=== PATIENT | female | born 1935 | race Caucasian/White ===

== ENCOUNTER 2017-08-20 08:30 | Outpatient (CLI) ==
[2015-12-17 14:39] VITALS: BMI 23.3
== END 2017-08-20 08:31 | disposition short-term general hospital (02) ==
LOC: AMBL 08:30
PROVIDERS: ATTEND Internal Medicine
DX: M25.552 Pain in left hip (principal); I48.91 Unspecified atrial fibrillation; W19.XXXA Unspecified fall, initial encounter

== ENCOUNTER 2017-09-11 14:59 | Inpatient (IN) ==
--- NOTE | 2017-09-11 16:05 | ED.PDOC ---
General ED Provider: Dr. KRISSY WILSON Chief Complaint: Shortness of Air Stated Complaint: Onset of Dyspnea at [place] this afternoon earlier. Recently had Total Lt Hip arthoplasty after fracture. Post op complications of afib -rvr and required vent care. Eventually recovered and now in [place] for rehab with goal of returning home. Receive NEB in ambulance with improved O2 Sat and less dyspnea. Time Seen by Physician: 15:15 Mode of Arrival: Ambulance Information Source: Patient Exam Limitations: No limitations Primary Care Provider: JIGNA CALIX Referred to ED by: PCP Nursing and Triage Documentation Reviewed and Agree: Yes Reviewed sepsis parameters & appropriate labs ordered?: Yes System Inflammatory Response Syndrome: Not Applicable Sepsis Protocol: For patient's 13 years and over: Temp is 96.8 and below OR 101 and greater Pulse >90 BPM Resp >20/minute Acutely Altered Mental Status Are patient's symptoms suggestive of a new infection, such as: -Pneumonia -Skin, Soft Tissue -Endocarditis -UTI -Bone, Joint Infection -Implantable Device -Acute Abdominal Infection -Wound Infection -Meningitis -Blood Stream Catheter Infection -Unknown System Inflammatory Response Syndrome: Not Applicable Respiratory Complaint Exam - Shortness of Air Complaint/Exam Onset/Duration: Today Symptoms Are: Resolved Timing: Intermittent Initial Severity: Moderate Current Severity: None Character: Reports: Dyspnea at rest, Dyspnea on exertion Aggravating: Reports: Movement Alleviating: Reports: Bronchodilators, Oxygen, Upright position Associated Signs and Symptoms: Reports: Cough, Wheezing, Labored breathing History of Healthcare-Acquired Pneumonia: Lives at skilled nursing Pulmonary Embolism Risk Factors: Reports: Recent trauma (Recent Total Hip arthroplasty) Review of Systems - Review Of Systems Constitutional: Denies: Chills Eyes: Reports: No symptoms Ears, Nose, Mouth, Throat: Reports: No symptoms Respiratory: Reports: Short of air, Wheezing Cardiac: Reports: Edema, Irregular heart rate, Palpitations GI: Reports: No symptoms : Reports: No symptoms Musculoskeletal: Reports: No symptoms Skin: Reports: No symptoms Neurological: Reports: No symptoms Endocrine: Reports: No symptoms Hematologic/Lymphatic: Reports: No symptoms All Other Systems: Reviewed and Negative Past Medical History - Past Medical History Endocrine: Reports: DM 2 Cardiovascular: Reports: Hypertension, A-Fib Respiratory: Reports: COPD Hematological: Reports: Anemia Gastrointestinal: Reports: GERD Genitourinary: Reports: None Neuro/Psych: Reports: None, Anxiety Musculoskeletal: Reports: Arthritis, Back Pain Cancer: Reports: None Last Menstrual Period: n/a - Surgical History General Surgical History: Reports: None - Family History Family History: Reports: Heart, Hypertension, Diabetes, Stroke - Social History Smoking Status: Former smoker Hx Substance Use: No Lives: In Group Home Physical Exam - Physical Exam Appearance: Well-appearing Ill-appearing: Mild Pain Distress: None Eyes: NANCY, EOMI, Conjunctiva clear ENT: Ears normal, Nose normal, Oropharynx normal Neck: Supple Respiratory: Airway patent, Breath sounds diminished, Respirations nonlabored, Crackles, Wheezes Cardiovascular: Pulses normal, Irregular rhythm GI/: Soft, Nontender, No masses, Bowel sounds normal Musculoskeletal: Normal strength, ROM intact, No edema Skin: Warm, Dry, Normal color Neurological: Sensation intact, Motor intact, Reflexes intact, Alert, Oriented Critical Care Note - Critical Care Note Total Time (mins): 2 Course - Course Hematology/Chemistry: 09/11/17 16:35 09/11/17 16:35 Orders, Labs, Meds: Lab Review 09/11/17 09/11/17 09/11/17 16:22 16:35 16:35 WBC 11.36 H RBC 2.84 L Hgb 8.8 L Hct 27.3 L MCV 96.1 MCH 31.0 MCHC 32.2 RDW Coeff of James 15.4 H Plt Count 292 Immature Gran % (Auto) 0.4 Neut % (Auto) 82.6 Lymph % (Auto) 7.5 L [place] % (Auto) 9.1 Eos % (Auto) 0.1 Baso % (Auto) 0.3 Immature Gran # (Auto) 0.1 Neut # 9.4 H Lymph # 0.9 [place] # 1.0 Eos # 0.0 Baso # 0.0 Puncture Site Rr O2 Saturation 89.0 L ABG pH 7.498 H ABG pCO2 41.7 ABG pO2 52.0 L* ABG HCO3 32.3 H ABG Total CO2 34 H ABG Base Excess 9 H Matt Test + O2 Delivery Device Oxygen Liter Flow FiO2 % 21.0 Sodium 138 Potassium 3.6 Chloride 97 L Carbon Dioxide 32 H Anion Gap 12.6 BUN 10 Creatinine 0.73 Estimated GFR (MDRD) 77.00 BUN/Creatinine Ratio 13.69 Glucose 132 H Calcium 8.2 Total Bilirubin 0.9 AST 30 ALT 19 Alkaline Phosphatase 88 Total Creatine Kinase 133 CK-MB (CK-2) 5.1 H* CK-MB (CK-2) % 3.60315 Troponin I B-Natriuretic Peptide Total Protein 6.4 Albumin 2.7 L Globulin 3.7 Albumin/Globulin Ratio 0.73 09/11/17 09/11/17 09/11/17 16:35 17:00 17:40 WBC RBC Hgb Hct MCV MCH MCHC RDW Coeff of James Plt Count Immature Gran % (Auto) Neut % (Auto) Lymph % (Auto) [place] % (Auto) Eos % (Auto) Baso % (Auto) Immature Gran # (Auto) Neut # Lymph # [place] # Eos # Baso # Puncture Site Rr O2 Saturation 94.0 L ABG pH 7.487 H ABG pCO2 43.3 ABG pO2 67.0 L ABG HCO3 32.8 H ABG Total CO2 34 H ABG Base Excess 9 H Matt Test + O2 Delivery Device Nc Oxygen Liter Flow 2.00 FiO2 % 28.0 Sodium Potassium Chloride Carbon Dioxide Anion Gap BUN Creatinine Estimated GFR (MDRD) BUN/Creatinine Ratio Glucose Calcium Total Bilirubin AST ALT Alkaline Phosphatase Total Creatine Kinase CK-MB (CK-2) CK-MB (CK-2) % Troponin I 0.0760 B-Natriuretic Peptide 747 H Total Protein Albumin Globulin Albumin/Globulin Ratio Orders Category Date Time Status ADMIT PATIENT INPATIENT .TO SCU (MONITORED BED) ADMISSION 09/11/17 19:42 Ordered ABG DRAW REQUEST Stat CARDIO 09/11/17 16:22 Completed ABG DRAW REQUEST Stat CARDIO 09/11/17 17:40 Completed ECHOCARDIOGRAM 2D-M MODE Routine CARDIO 09/11/17 19:42 Ordered EKG-(ED ONLY) Stat CARDIO 09/11/17 16:19 Completed NEBULIZER TREATMENT Routine CARDIO 09/11/17 19:49 Ordered NEBULIZER TREATMENT Stat CARDIO 09/11/17 16:18 Completed ACTIVITY .BR with BRP CARE 09/11/17 19:47 Ordered INTAKE & OUTPUT Q8HR CARE 09/11/17 19:42 Ordered TELEMETRY MONITORING TELE CARE 09/11/17 19:44 Ordered VITAL SIGNS Q4HR CARE 09/11/17 19:46 Ordered 2 GRAM SODIUM DIET DIETARY 09/11/17 Dinner Ordered Saline Lock [ED IV/MEDIPORT/POWERPORT] .ONCE EMERGENCY 09/11/17 16:18 Active ABG Stat LAB 09/11/17 16:22 Completed ABG Stat LAB 09/11/17 17:40 Completed BNP [B-TYPE NATRIURETIC PEPTIDE] Stat LAB 09/11/17 16:35 Completed CBC W/ AUTO DIFF DAILY@0600 LAB 09/12/17 06:00 Ordered CBC W/ AUTO DIFF DAILY@0600 LAB 09/13/17 06:00 Ordered CBC W/ AUTO DIFF Stat LAB 09/11/17 16:35 Completed CMP [COMPREHENSIVE METABOLIC PANEL] Stat LAB 09/11/17 16:35 Completed COMPREHENSIVE METABOLIC PANEL DAILY@0600 LAB 09/12/17 06:00 Ordered COMPREHENSIVE METABOLIC PANEL DAILY@0600 LAB 09/13/17 06:00 Ordered CREATINE KINASE Stat LAB 09/11/17 16:35 Completed TROPONIN I Q8H LAB 09/12/17 02:00 Ordered TROPONIN I Q8H LAB 09/12/17 10:00 Ordered TROPONIN I Stat LAB 09/11/17 17:00 Completed 0.9 % Sodium Chloride [Saline Flush] MEDS 09/11/17 16:18 Active 1 syr IVF PRN PRN Acetaminophen [Tylenol] MEDS 09/11/17 19:42 Ordered 650 mg PO Q4H PRN Ceftriaxone Sodium [Rocephin] 1 gm MEDS 09/11/17 20:00 Ordered 0.9 % Sodium Chloride [Sodium Chloride] 50 ml IV DAILY Furosemide [Lasix] MEDS 09/12/17 06:30 Ordered 20 mg IVP QDAC Furosemide [Lasix] MEDS 09/11/17 19:29 Discontinued 40 mg IVP ONCE STA Levalbuterol HCl [Xopenex 0.63 mg] MEDS 09/11/17 16:15 Discontinued 1 vial NEB ONCE STA Levalbuterol HCl [Xopenex 0.63 mg] MEDS 09/11/17 19:42 Ordered 1 vial NEB RTQ8H PRN Ondansetron HCl/Pf [Zofran 4 mg/2 ml] MEDS 09/11/17 19:42 Ordered 4 mg IVP Q6H PRN RESUSCITATION STATUS Routine OTHERS 09/11/17 19:42 Ordered CHEST, 1V AP ONLY Stat RADS 09/11/17 16:15 Taken PT CONSULT Routine THERAPIES 09/11/17 Ordered Medications Generic Name Dose Route Start Last Admin Trade Name Freq PRN Reason Stop Dose Admin Sodium Chloride 1 syr 09/11/17 16:18 09/11/17 19:42 Saline Flush IVF 1 syr PRN PRN Administration To flush IV Discontinued Medications Generic Name Dose Route Start Last Admin Trade Name Aneta PRN Reason Stop Dose Admin Furosemide 40 mg 09/11/17 19:29 09/11/17 19:40 Lasix IVP 09/11/17 19:30 40 mg ONCE STA Administration Levalbuterol HCl 1 vial 09/11/17 16:15 09/11/17 16:57 Xopenex 0.63 Mg NEB 09/11/17 16:16 1 vial ONCE STA Administration Vital Signs: Temp Pulse Resp BP Pulse Ox 09/11/17 15:01 97.8 F 70 24 160/75 H 100 Departure - Departure Time of Disposition: 20:00 Disposition: ADMITTED INPATIENT Discharge Problem: CHF (congestive heart failure), Respiratory failure Condition: Fair Pt referred to PMD for follow-up: No Allergies/Adverse Reactions: Allergies atorvastatin [From Lipitor] Adverse Reaction (Unknown, Verified 12/14/15 11:16) ezetimibe [From Zetia] Adverse Reaction (Unknown, Verified 12/14/15 11:16) glimepiride Adverse Reaction (Unknown, Verified 12/14/15 11:16) rosuvastatin [From Crestor] Adverse Reaction (Unknown, Verified 12/14/15 11:16) simvastatin [From Vytorin] Adverse Reaction (Unknown, Verified 12/14/15 11:16) Home Medications: Ambulatory Orders Aspirin [Aspirin EC] 81 mg PO DAILYWM 12/14/15 Diltiazem HCl [Cardizem] 120 mg PO DAILY 12/14/15 Lorazepam [Ativan] 1 mg PO Q6H PRN 12/14/15 Metformin HCl [Glucophage] 500 mg PO BIDWM 12/14/15 Metoprolol Succinate [Toprol Xl] 200 mg PO DAILY 12/14/15 Omeprazole [Prilosec] 20 mg PO QDAC 12/14/15 Furosemide [Lasix] 20 mg PO DAILY #30 tablet 12/27/15 Dabigatran Etexilate Mesylate [Pradaxa] 150 mg PO Q12HR 09/11/17 Digoxin 125 mcg PO DAILY 09/11/17 Docusate Sodium [Colace] 100 mg PO BID 09/11/17 Ferrous Gluconate 324 mg PO DAILY 09/11/17 Gabapentin 100 mg PO TID 09/11/17 Hydrocodone/Acetaminophen [Hydrocodon-Acetaminophen 5-325] 1 each PO Q4H PRN 05/21 Losartan Potassium 100 mg PO DAILY 09/11/17 Multivitamin 1 cap PO DAILY 09/11/17 Olmesartan Medoxomil [Benicar] 40 mg PO DAILY 09/11/17 [place]-3/Dha/Epa/Fish Oil [[place] 3 500 Softgel] 1 each PO BID 09/11/17 Simvastatin [Zocor] 10 mg PO BEDTIME 09/11/17
[2017-09-11] MEDS ORDERED: XOPENEX 0.63 MG NEB STA (16:15)
[2017-09-11] MEDS ORDERED: LASIX IVP STA (19:29)
[2017-09-11] MEDS ORDERED: ZOFRAN 4 MG/2 ML IVP PRN (19:42)
[2017-09-11] MEDS ORDERED: TYLENOL PO PRN (19:42)
[2017-09-11] MEDS ORDERED: XOPENEX 0.63 MG NEB PRN (19:42)
[2017-09-11] MEDS ORDERED: DECADRON 4 MG/ML SDV IM STA (19:55)
[2017-09-11] MEDS ORDERED: ATIVAN PO PRN (19:57)
[2017-09-11] MEDS ORDERED: NORCO 5-325 PO PRN (19:57)
[2017-09-11] MEDS ORDERED: ROCEPHIN 1 GM in SODIUM CHLORIDE 50 ML IV SCH (20:00)
[2017-09-11] MEDS ORDERED: DECADRON 4 MG/ML SDV ONE (20:19)
[2017-09-11] MEDS ORDERED: ROCEPHIN ONE (20:19)
[2017-09-11] MEDS ORDERED: DABIGATRAN ETEXILATE MESYLATE 150 MG PO SCH (21:00)
[2017-09-11 21:41] VITALS: BMI 24.5
[2017-09-11] MEDS ORDERED: PRADAXA ONE (22:36)
[2017-09-11] MEDS: NEURONTIN PO SCH (22:38)
[2017-09-11] MEDS: ATIVAN PO SCH (22:38)
[2017-09-11] MEDS: ZOCOR PO SCH (22:38)
[2017-09-11] MEDS ORDERED: XOPENEX 1.25 MG NEB ONE (23:25)
[2017-09-11] MEDS: XOPENEX 1.25 MG NEB SCH (23:25)
--- NOTE | 2017-09-12 03:25 | DI ---
Exam: Left hip two-view History: Fall with recent hip surgery Findings / impression: The left hip arthroplasty shows no evidence of vishnu-hardware fracture or loos ening. No dislocation of the hardware. Visualized portions of the left dion pelvis appear intact. No acute bony or articular abnormalities are seen.
[2017-09-12] MEDS: XOPENEX 1.25 MG NEB SCH ×4 (04:02→22:15)
[2017-09-12] MEDS: LASIX IVP SCH (05:48)
[2017-09-12] MEDS ORDERED: LASIX TAB PO SCH (06:30)
[2017-09-12] MEDS: PRILOSEC PO SCH (06:30)
--- NOTE | 2017-09-12 07:11 | DI ---
EXAM: CHEST FRONTAL VIEW HISTORY: Shortness of breath. COMPARISON: 12/27/2015 FINDINGS: Heart size upper limit normal, stable. Mild atherosclerotic disease. There are nodular d ensities over the left lung, some probably new or increased in size since previous exam. These could represent pulmonary nodules or foci of fibrosis or pneumonia. Lungs are hyperinflated. No vascular congestion or pleural fluid. No pneumothorax. IMPRESSION: 1. Indeterminate nodular opacities over the left lung could represent foci of infection/pneumonia or pulmonary nodules. Consider follow-up chest radiography to assure clearance. CT may be indicated i f this does not occur. 2. Cannot exclude a background of chronic obstructive pulmonary disease. Correlate clinically.
[2017-09-12] MEDS ORDERED: CARDIZEM PO SCH (09:00)
[2017-09-12] MEDS ORDERED: METOPROLOL SUCCINATE 200 MG PO SCH (09:00)
[2017-09-12] MEDS ORDERED: NON-FORMULARY MEDICATION (Olmesartan Medoxomil [Benicar] 40 MG) PO SCH (09:00)
[2017-09-12] MEDS ORDERED: NON-FORMULARY MEDICATION (Ferrous Gluconate [Ferrous Gluconate] 324 MG) PO SCH (09:00)
[2017-09-12] MEDS ORDERED: NON-FORMULARY MEDICATION (Multivitamin 1 CAP) PO SCH (09:00)
[2017-09-12] MEDS: TOPROL XL PO SCH (09:13)
[2017-09-12] MEDS: PRADAXA PO SCH ×2 (09:13→21:03)
[2017-09-12] MEDS: BENICAR PO SCH (09:14)
[2017-09-12] MEDS: COZAAR PO SCH (09:15)
[2017-09-12] MEDS: MULTIVITAMIN TABLET PO SCH (09:15)
[2017-09-12] MEDS: FERROUS SULFATE PO SCH (09:15)
[2017-09-12] MEDS: ASPIRIN EC PO SCH (09:15)
[2017-09-12] MEDS: LANOXIN PO SCH (09:16)
[2017-09-12] MEDS: NEURONTIN PO SCH ×3 (09:16→21:03)
[2017-09-12] MEDS: GLUCOPHAGE PO SCH ×2 (09:16→16:33)
--- NOTE | 2017-09-12 10:07 | PCM.PROG ---
Attending Provider: ATTENDING PROVIDER: Dr. JIGNA CALIX DATE OF SERVICE: 09/12/17 SUBJECTIVE: This 82 year old WHITE/ F was hospitalized 09/11/17. The patient is hospitalized with acute respiratory failure, etiology likely combination of asthmatic bronchitis with possibility of CHF. The patient had left hip surgery/ repair, on 20 of August. She was in long term. REVIEW OF SYSTEMS: CONSTITUTIONAL: No night sweats. No fatigue, malaise, lethargy. No fever or chills. HEENT: Eyes: No visual changes. No eye pain. No eye discharge. ENT: No runny nose. No epistaxis. No sinus pain. No odynophagia. No congestion. RESPIRATORY: No cough, no congestion. No hemoptysis. No shortness of breath. CARDIOVASCULAR: No angina symptoms. No CHF symptoms. No atypical chest pain for CAD. No palpitations. No orthopnea.. GASTROINTESTINAL: No abdominal pain. No nausea or vomiting. No diarrhea or constipation. No hematemesis. No hematochezia. GENITOURINARY: No urgency. No frequency. No dysuria. No hematuria. No obstructive symptoms. No discharge. No pain. No significant abnormal bleeding. MUSCULOSKELETAL: No musculoskeletal pain; no joint swelling. NEUROLOGICAL: Awake but confused. No headache. No neck pain. No syncope. No seizures. No dizziness. PSYCHIATRIC: Not anxious. No depression. No suicidal thoughts. No homicidal thoughts. SKIN: No rash. No lesions. No wounds. ENDOCRINE: No unexplained weight loss. No weight gain. HEMATOLOGIC/LYMPHATIC: No anemia. No purpura. No petechiae. No prolonged or excessive bleeding. No palpable lymph nodes. PHYSICAL EXAMINATION: GENERAL: The patient is awake, confused, lying in bed in no distress; looks pale. VITAL SIGNS: Temperature 98.9 F, Pulse 80, Respiratory Rate 20, BP 120/80, Pulse Ox 94% HEENT: Head normocephalic, atraumatic. Eyes: Extraocular muscles are intact. Pupils are equal, round and reactive to light and accommodation. Ears: No lesions. Nose appeared normal. Throat: No exudate or erythema. NECK: Supple. No JVD, no carotid bruit. No lymphadenopathy or thyromegaly. LUNGS: Decreased breath sounds. Clear to auscultation. Percussion note normal. Chest symmetrical. HEART: S1, S2, no S3. No murmurs. No cyanosis or clubbing. No ascites. Pulses: Dorsalis pedis and posterior tibial pulses +1 to +2 both sides. ABDOMEN: Soft. Non-tender. Bowel sounds active. No CVA tenderness. No mass felt. EXTREMITIES: No edema. Full range of motion of all extremities, equal. NEUROLOGIC: No focal deficit. Cranial nerves II through XII are grossly intact. No headache, no double vision or headache. SKIN: Not dry. Intact. Turgor-normal. LYMPHATIC: No palpable lymph nodes/no lymphedema. MUSCULOSKELETAL: Normal joints with no swelling. Muscle tone is normal. LAB REVIEW: 09/12/17 01:55 09/12/17 01:55 09/12/17 01:55: Sodium 140, Potassium 3.5, Chloride 96 L, Carbon Dioxide 33 H, Anion Gap 14.5, BUN 12, Creatinine 0.82, Estimated GFR (MDRD) 67.00, BUN/ Creatinine Ratio 14.63, Glucose 156 H, Calcium 8.0 L, Total Bilirubin 0.8, AST 26, ALT 17, Alkaline Phosphatase 84, Total Protein 6.2, Albumin 2.6 L, Globulin 3.6, Albumin/Globulin Ratio 0.72 09/12/17 01:55: WBC 9.92, RBC 2.84 L, Hgb 8.9 L, Hct 27.6 L, MCV 97.2, MCH 31.3 H, MCHC 32.2, RDW Coeff of James 15.6 H, Plt Count 271, Immature Gran % (Auto) 0.5 , Neut % (Auto) 91.7, Lymph % (Auto) 4.1 L, [place] % (Auto) 3.5, Eos % (Auto) 0.0 , Baso % (Auto) 0.2, Immature Gran # (Auto) 0.1, Neut # 9.1 H, Lymph # 0.4 L, [place] # 0.4, Eos # 0.0, Baso # 0.0 09/12/17 01:55: Troponin I 0.0820 ASSESSMENT: 1. Acute respiratory failure seems to have resolved with pulse ox 94% on room air. 2. Anemia. 3. Left hip repair recently. 4. Left ventricular failure. 5. Bronchitis. PLAN: 1. BNP in the morning 2. Venous scan 3. Lanoxin level 4. Daily CBC and CMP 5. ABG on room air Plan and coordination of the patient's care discussed in the presence of Ornamental Painter and nurse. CONDITION: Stable SCRIBED BY: EDWIN EMERSON Knitting Tester scribed while in presence of service performed by Dr. JIGNA CALIX on 09/12/17 ([id number])
[2017-09-12] MEDS: CARDIZEM CD PO SCH (11:00)
[2017-09-12] MEDS: DECADRON 4 MG/ML SDV IVP SCH (11:06)
--- NOTE | 2017-09-12 11:44 | US ---
EXAM: ULTRASOUND LOWER EXTREMITY VENOUS DOPPLER EXAM HISTORY: Swelling and tenderness. FINDINGS: Bilateral lower extremity venous Doppler exam. Real time shearer-scale, Doppler spectral anal ysis and color-flow Doppler imaging performed. The veins targeted for evaluation include the common femoral, greater saphenous, profundus, femoral, popliteal, peroneal, anterior tibial and posterior ti bial. The evaluated veins demonstrated normal spontaneous flow and compression without evidence of thrombosis. Subcutaneous edema is noted at the level of the legs. IMPRESSION: No venous thrombosis identified within the areas evaluated.
[2017-09-12] MEDS: ATIVAN PO SCH (21:03)
[2017-09-12] MEDS: ZOCOR PO SCH (21:03)
[2017-09-12] MEDS: ROCEPHIN 1 GM in SODIUM CHLORIDE 50 ML IV SCH (21:04)
[2017-09-13] MEDS: XOPENEX 1.25 MG NEB SCH ×4 (04:04→23:23)
[2017-09-13] MEDS: PRILOSEC PO SCH (05:51)
[2017-09-13] MEDS: LASIX IVP SCH (05:52)
[2017-09-13] MEDS: DECADRON 4 MG/ML SDV IVP SCH (08:40)
[2017-09-13] MEDS: ASPIRIN EC PO SCH (08:46)
[2017-09-13] MEDS: PRADAXA PO SCH ×2 (08:46→21:34)
[2017-09-13] MEDS: TOPROL XL PO SCH (08:47)
[2017-09-13] MEDS: FERROUS SULFATE PO SCH (08:47)
[2017-09-13] MEDS: NEURONTIN PO SCH ×3 (08:47→20:09)
[2017-09-13] MEDS: BENICAR PO SCH (08:47)
[2017-09-13] MEDS: MULTIVITAMIN TABLET PO SCH (08:48)
[2017-09-13] MEDS: LANOXIN PO SCH (08:48)
[2017-09-13] MEDS: COZAAR PO SCH (08:48)
[2017-09-13] MEDS: GLUCOPHAGE PO SCH ×2 (08:48→16:58)
[2017-09-13] MEDS: CARDIZEM CD PO SCH (08:48)
--- NOTE | 2017-09-13 10:48 | PCM.PROG ---
Attending Provider: ATTENDING PROVIDER: Dr. JIGNA CALIX This patient is seen with Araceli Montgomery, Nurse Practitioner. DATE OF SERVICE: 09/13/17 SUBJECTIVE: This 82 year old WHITE/ F was hospitalized 09/11/17. The patient is lying in bed resting comfortably. She has been doing well. ABGs still poor on room air. REVIEW OF SYSTEMS: CONSTITUTIONAL: Weakness. No night sweats. No fever or chills. HEENT: Eyes: No visual changes. No eye pain. No eye discharge. ENT: No runny nose. No epistaxis. No sinus pain. No odynophagia. No congestion. RESPIRATORY: Cough and congestion. Positive for shortness of breath. No hemoptysis. CARDIOVASCULAR: No angina symptoms. No CHF symptoms. No atypical chest pain for CAD. No palpitations. No orthopnea. Leg edema. GASTROINTESTINAL: No abdominal pain. No nausea or vomiting. No diarrhea or constipation. No hematemesis. No hematochezia. GENITOURINARY: No urgency. No frequency. No dysuria. No hematuria. No obstructive symptoms. No discharge. No pain. No significant abnormal bleeding. MUSCULOSKELETAL: No musculoskeletal pain; no joint swelling. NEUROLOGICAL: Awake, alert, oriented. No headache. No neck pain. No syncope. No seizures. No dizziness. PSYCHIATRIC: Not anxious. No depression. No suicidal thoughts. No homicidal thoughts. SKIN: No rash. No lesions. No wounds. ENDOCRINE: No unexplained weight loss. No weight gain. HEMATOLOGIC/LYMPHATIC: No anemia. No purpura. No petechiae. No prolonged or excessive bleeding. No palpable lymph nodes. PHYSICAL EXAMINATION: GENERAL: The patient is resting comfortably lying in bed in no distress. VITAL SIGNS: Temperature 97.6 F, Pulse 75, Respiratory Rate 18, BP 130/61, Pulse Ox 94% HEENT: Head normocephalic, atraumatic. Eyes: Extraocular muscles are intact. Pupils are equal, round and reactive to light and accommodation. Ears: No lesions. Nose appeared normal. Throat: No exudate or erythema. NECK: Supple. No JVD, no carotid bruit. No lymphadenopathy or thyromegaly. LUNGS: Diminished breath sounds bilaterally. Clear to auscultation. Percussion note normal. Chest symmetrical. HEART: Irregular heart rate consistent with atrial fibrillation. S1, S2, no S3. No murmurs. No cyanosis or clubbing. No ascites. Pulses: Dorsalis pedis and posterior tibial pulses +1 to +2 both sides. ABDOMEN: Soft. Non-tender. Bowel sounds active. No CVA tenderness. No mass felt. EXTREMITIES: Trace to +1 lower extremity edema. Full range of motion of all extremities, equal. NEUROLOGIC: No focal deficit. Cranial nerves II through XII are grossly intact. No headache, no double vision or headache. SKIN: Not dry. Intact. Turgor-normal. LYMPHATIC: No palpable lymph nodes/no lymphedema. MUSCULOSKELETAL: Normal joints with no swelling. Muscle tone is normal. LAB REVIEW: 09/13/17 05:00 09/13/17 05:00 09/13/17 05:00: B-Natriuretic Peptide 421 H 09/13/17 05:00: Sodium 140, Potassium 3.6, Chloride 96 L, Carbon Dioxide 35 H, Anion Gap 12.6, BUN 25 H, Creatinine 1.45 H D, Estimated GFR (MDRD) 35.00, BUN/ Creatinine Ratio 17.24, Glucose 158 H, Calcium 7.7 L, Total Bilirubin 0.5, AST 20, ALT 15, Alkaline Phosphatase 69, Total Protein 5.9, Albumin 2.6 L, Globulin 3.3, Albumin/Globulin Ratio 0.79 09/13/17 05:00: WBC 9.71, RBC 2.60 L, Hgb 8.0 L, Hct 25.3 L, MCV 97.3, MCH 30.8 , MCHC 31.6 L, RDW Coeff of James 15.9 H, Plt Count 274, Immature Gran % (Auto) 0.7, Neut % (Auto) 80.6, Lymph % (Auto) 8.7 L, [place] % (Auto) 9.9, Eos % (Auto) 0.0, Baso % (Auto) 0.1, Immature Gran # (Auto) 0.1, Neut # 7.8 H, Lymph # 0.8, [place] # 1.0, Eos # 0.0, Baso # 0.0 09/12/17 09:40: Digoxin 1.80 09/12/17 09:40: Troponin I 0.0700 09/12/17 08:58: Puncture Site Rr, O2 Saturation 86.0 L, ABG pH 7.474 H, ABG pCO2 44.9, ABG pO2 48.0 L*, ABG HCO3 33 H, ABG Total CO2 34 H, ABG Base Excess 9 H, Matt Test +, FiO2 % 21.0 ASSESSMENT: 1. Acute respiratory failure seems to have resolved with pulse ox 94% on room air. 2. Atrial fibrillation 3. Anemia. 4. Left hip repair recently. 5. Left ventricular failure. 6. Bronchitis. PLAN: 1. Keep legs elevated 2. Echo today Plan and coordination of the patient's care discussed in the presence of Taxicab Driver and nurse. CONDITION: Stable SCRIBED BY: EDWIN EMERSON Parking Meter Collector scribed while in presence of service performed by Dr. Calix/Araceli Montgomery, RONALDO on 09/13/17 ([id number])
--- NOTE | 2017-09-13 11:43 | RS.OTINEVL ---
Subjective - Patient information Date of Evaluation: 09/13/17 Date of Arrival on Unit: 09/10/17 Admitted From:: Emergency Dept Diagnosis: CHF, Afib, Weakness Usual Living Arrangement: Alone Living Arrangement Comments: Pt reports she has an apartment at [facility]. Pt reports she was currently staying at [facility] for therapy for her Left hip. Pt reports she does not drive anymore. She has a lady that comes to her apartment and helps her with cleaning and takes her to the Grocery store before her hip fx. Her daughter Brenda helps take her to the doctor. Medical History: Hypertension, COPD, CHF, Arthritis Medical History Comments:: CHF, COPD, HTN, DAIJA, Cataract surgery, Afib, Gastroesophageal Reflux, hysterectomy, anxiety, arthritis in knees and hands. Surgical History: Hip Replacement Surgical History Comments:: Left DAIJA, Gall Bladder, Subjective Information/ Patient Comments:: "My hip hasn't hurt much." "My hip feels like it is going to give way." - Level of function Prior to this admission, the patient could do the following:: Independent Selfcare, Independent ADL's, Independent Ambulation Abilities prior to this admission: Pt was independent with dressing, bathing, and ambulated with no assistive device. Pt had a house keeper that takes her shopping at [employer] store. Current Equipment Used at Home: O2 at home at night, glucometer Pain Assessment - Pain Pain Score: 0 Side: left Pain Location Body Site: Wrist Pain Aggravating Factors: Changing Position Interventions - Objective Patient Orientation: Person, Place, Situation Current Interventions: IV's, Oxygen, Telemetry Observation: Pt is weak and has difficulty with functional mobility. Pt uses a RW minimal assistance and oxygen. Pt reports her memory has not been good since her surgery. Interventions - ROM Right Upper Extremity AROM: Slight limitation Left Upper Extremity AROM: Slight limitation - Strength Right Upper Extremity Strength: Mild Weakness Left Upper Extremity Strength: Mild Weakness - Sensation Right Upper Extremity Sensation: Intact/Normal Left Upper Extremity Sensation: Intact/Normal Balance - Sitting Balance Static Sitting Balance: Good Dynamic Sitting Balance: Fair - Standing Balance Static Standing Balance: Fair Dynamic Standing Balance: Poor - Comments Balance Assessment Comments: Pt having difficulty with balance during transfer due to the LLE. ADL Skills - Self Feeding Self Feeding: Independent - Grooming Grooming: Independent - Bathing Bathing UE: Min Assist Bathing LE: Mod Assist - Dressing Dressing UE: Min Assist Dressing LE: Max Assist - Toilet Management Toileting Management: Min Assist Functional Mobility - Bed Mobility Rolling R/L: Supervision Scooting: Supervision Supine to Sit: CGA Sit to Supine: CGA - Transfers Sit to Stand: Min Assist Stand to Sit: Min Assist Stand Pivot Transfers: Min Assist, 1 person assist - Ambulation Weight Bearing Status: WBAT Assistive Device Used: Rolling Walker Assistance needed with Ambulation: 2 person assist Comments:: O2 during ambulation - Safety Awareness Safety Awareness: Good Additional Treatment Performed - Additional units charged ADL: 2 - Time with patient Total treatment time: 70 Activities Patient Interests:: Watching Television, Visiting/Socializing Patient Education Patient Education: Education of diagnosis, Home Safety, Education of Plan of Care Teaching Recipient: Patient Teaching Methods: Discussion Assessment Problem List:: Decreased level of function, Requires training/education, Decreased safety/Risk of falls, Weakness Rehab Potential: Good Further Therapy Indicated?: Yes Short Term Goals - Goals GOAL 1: Pt will utilize appropriate AD/AE for increase safety with ADL performance. Goal to be met by: 09/20/17 GOAL 2: Pt to increase BUE strength to 4/5 to improve ambulation with RW/ Goal to be met by: 09/20/17 GOAL 3: Pt to increase dyn. std. bal. to F+/good for sink level ADLS. Goal to be met by: 09/20/17 Professional Fighter Goals GOAL 1: Pt will utilize appropriate AD/AE for increase safety with ADL performance. Goal to be met by: 09/27/17 GOAL 2: Pt to increase BUE strength to 4+/5 to improve ambulation with RW/ Goal to be met by: 09/27/17 GOAL 3: Pt to increase dyn. std. bal. to good+ for sink level ADLS. Goal to be met by: 09/27/17 Plan Plan of Care: Therapeutic EX, Neuromuscular Re-Educ, Therapeutic Activity, Self- Care/Home Management Frequency of Treatment: 1-2 X day, as tolerated Duration of Treatment: 2 Weeks Anticipated Discharge Destination: Home Has the Physician been added for Co-signature?: Yes
--- NOTE | 2017-09-13 15:17 | RS.PTINEVL ---
Subjective - Patient information Date of Evaluation: 09/13/17 Date of Arrival on Unit: 09/10/17 [facility] From[facility] Diagnosis: CHF, respiratory failure, recent THR approx 3 weeks ago Usual Living Arrangement: [facility] Living Arrangement Comments: pt transferred from [facility]. pt had lived alone prior to hip fx. Home Environment: Level/No stairs Medical History: Hypertension, COPD, CHF, Arthritis Medical History Comments:: Afib, Gastroesophageal Reflux, anxiety, back pain, anemia LATEX ALLERGY?: No Surgical History: Hip Replacement, Hysterectomy Surgical History Comments:: Left DAIJA, Gall Bladder, Subjective Information/ Patient Comments:: pt states she has been gettting PT at [facility] s/p LTHR approx 3 weeks ago.pt states she needs to do something so she doesn't lose what she has gained. - Level of function Prior to this admission, the patient could do the following:: Independent Selfcare, Independent ADL's, Independent Ambulation Current Level of Function: Partially Dependent Current Equipment Used at Home: O2 at home at night Pain Assessement - Location L hip Description: Aching Intensity: 4 Pain Behavior: Grasping Site, Facial Grimacing Interventions - Objective Patient Orientation: Person, Place, Time, Situation Current Interventions: IV's, Oxygen, Telemetry Range of Motion - ROM Right Upper Extremity AROM: WFL's Left Upper Extremity AROM: WFL's Right Lower Extremity AROM: WFL's Left Lower Extremity AROM: Slight limitation (L hip limited due to pain) Muscle Strength - Muscle Strength Right Upper Extremity Strength: Mild Weakness (shld flex 4-/5, elbow flex/ext 4- /5) Left Upper Extremity Strength: Mild Weakness (shld flex 4-/5, elbow flex/ext 4-/ 5) Right Lower Extremity Strength: Mild Weakness (hip flex 4-/5, knee flex/ext 4/5 , ankle DF/PF 4/5) Left Lower Extremity Strength: Mild Weakness (hip flex 3+/5, knee flex/ext 4-/5 , ankle DF/PF 4/5) Sensation - Sensation Right Upper Extremity Sensation: Intact/Normal Left Upper Extremity Sensation: Intact/Normal Right Lower Extremity Sensation: Impaired Left Lower Extremity Sensation: Impaired Balance - Sitting Balance and Reactions Static Sitting Balance: Good Dynamic Sitting Balance: Fair Sitting Equilibrium Reactions: Delayed Left, Delayed Right Sitting Protective Reactions: Delayed Left, Delayed Right - Standing Balance and Reactions Static Standing Balance: Fair Dynamic Standing Balance: Poor Standing Equilibrium Reactions: Delayed Left, Delayed Right Standing Protective Reactions: Delayed Left, Delayed Right Functional Mobility - Transfers Sit to Stand: Min Assist Stand to Sit: Min Assist - Safety Awareness Safety Awareness: Fair Ambulation - Ambulation Assistive Device Used: Rolling Walker Orthotic/Prosthetic Device: No Distance: 80ft Assistance needed with Ambulation: Min Assist Gait Deviations: Narrow Based gait, Shuffling gait, Short stride, Deviates from path Ambulation Comments: pt amb with antalgic gait with occasional scissoring and with narrow FREDA Factors Affecting Ambulation: Decreased Balance, Pain, Weakness, Limited Endurance Treatment time - Time with patient Total treatment time: 32 Patient Education - Education Patient Education: Home Exercise Program, Education of Plan of Care Teaching Recipient: Patient Teaching Methods: Discussion Comments: Discussed with patient POC as well as safety with gait and transfers. Assessment - Assessment Problem List:: Decreased level of function, Requires training/education, Decreased safety/Risk of falls, Weakness, Pain limits previous level of function Rehab Potential: Good Further Therapy Indicated?: Yes Short Term Goals GOAL #1: pt demonstrate indepedence with rolling and scooting up in bed Goal to be met by: 09/16/17 GOAL #2: pt transfer sup to/from sit to/from stand CGA Goal to be met by: 09/16/17 GOAL #3: pt amb with rwx CGA 100ft with no LOB and improved gait sequencing Goal to be met by: 09/16/17 Fpc Goals GOAL #1: pt transfer sup to/from sit to/from stand SBA Goal to be met by: 09/19/17 GOAL #2: pt amb with rwx 150ft with no LOB with SBA to CGA Goal to be met by: 09/19/17 GOAL #3: pt with improved strength BLE 4 to 4+/5 independent with HEP Goal to be met by: 09/19/17 Plan Plan of Care: Therapeutic EX, Therapeutic Activity, Self-Care/Home Management Modalities: Hot Pack, Cold Pack/Cryotherapy Frequency of Treatment: 1-2 X day, as tolerated Duration of Treatment: 6 days Anticipated Discharge Destination: [facility] Has the Physician been added for Co-signature?: Yes
[2017-09-13] MEDS: ATIVAN PO SCH (20:09)
[2017-09-13] MEDS: ZOCOR PO SCH (20:09)
[2017-09-13] MEDS: ROCEPHIN 1 GM in SODIUM CHLORIDE 50 ML IV SCH (21:29)
[2017-09-14] MEDS: XOPENEX 1.25 MG NEB SCH ×4 (05:08→22:27)
[2017-09-14] MEDS: LASIX IVP SCH (05:37)
[2017-09-14] MEDS: PRILOSEC PO SCH (05:37)
[2017-09-14] MEDS: CARDIZEM CD PO SCH (09:33)
[2017-09-14] MEDS: COZAAR PO SCH (09:33)
[2017-09-14] MEDS: BENICAR PO SCH (09:33)
[2017-09-14] MEDS: MULTIVITAMIN TABLET PO SCH (09:33)
[2017-09-14] MEDS: LANOXIN PO SCH (09:33)
[2017-09-14] MEDS: GLUCOPHAGE PO SCH ×2 (09:33→17:05)
[2017-09-14] MEDS: NEURONTIN PO SCH ×3 (09:34→20:54)
[2017-09-14] MEDS: PRADAXA PO SCH ×2 (09:34→20:53)
[2017-09-14] MEDS: FERROUS SULFATE PO SCH (09:34)
[2017-09-14] MEDS: TOPROL XL PO SCH (09:34)
[2017-09-14] MEDS: DECADRON 4 MG/ML SDV IVP SCH (09:35)
[2017-09-14] MEDS: ASPIRIN EC PO SCH (09:36)
[2017-09-14] MEDS: HUMULIN R SUBCUT PRN ×3 (12:12→20:55)
--- NOTE | 2017-09-14 12:34 | DI ---
EXAM: Left wrist three views HISTORY: Pain after fall. FINDINGS: Bones appear demineralized. Joints are intact. No fracture is identified. No significant arthropathy. IMPRESSION: Demineralization. No fracture or dislocation.
--- NOTE | 2017-09-14 12:53 | DI ---
EXAM: LEFT FOREARM, 2 VIEWS HISTORY: Fall FINDINGS / IMPRESSION: Bones are demineralized. There is no definite or convincing evidence of acut e displaced fracture. Joints are intact. If symptoms are severe or persistent, consider correlation with CT.
--- NOTE | 2017-09-14 15:09 | PN ---
DATE OF SERVICE: 09/11/17 SUBJECTIVE: The patient was hospitalized from the skilled nursing with hypoxemia. The patient was in acute respiratory failure with pO2 52 with normal pH and pCO2 of 35. The patient was given breathing treatment and her blood gasses improved but after a while the blood gasses returned back to normal. The patient's also had a chest x -ray which showed possibility of interstitial edema. PHYSICAL EXAMINATION: HEENT: Head normocephalic, atraumatic. Eyes: Extraocular muscles are intact. Pupils are equal, round and reactive to light and accommodation. Ears: No lesions. Nose appeared normal. Throat: No exudate or erythema. NECK: Supple. JVP 1cm, no carotid bruit. No lymphadenopathy or thyromegaly. LUNGS: Decreased breath sounds with mild wheeze. Percussion note normal. Chest symmetrical. HEART: S1, S2, no S3. No murmurs. No cyanosis or clubbing. No ascites. Pulses: Dorsalis pedis and posterior tibial pulses +1 to +2 both sides. ABDOMEN: Soft. Nontender. Bowel sounds active. No CVA tenderness. No mass felt. EXTREMITIES: No edema. Full range of motion of all extremities, equal. NEUROLOGIC: No focal deficit. Cranial nerves II through XII are grossly intact. No headache, no double vision or headache. SKIN: Not dry. Intact. Turgor - normal. LYMPHATIC: No palpable lymph nodes/no lymphedema. MUSCULOSKELETAL: Normal joints with no swelling. Muscle tone is normal. ASSESSMENT: 1. Respiratory failure likely from chronic lung disease with probably bronchitis other possibility is early left ventricular failure. PLAN: 1. Give IV Lasix 2. NEBS treatment 3. IV steroids and antibiotics 4. Telemetry in special care unit CONDITION: Stable TIME SPENT: More than 30 minutes. Plan and coordination of the patient's care discussed in the presence of nurse. EB
[2017-09-14] MEDS: ROCEPHIN 1 GM in SODIUM CHLORIDE 50 ML IV SCH (20:53)
[2017-09-14] MEDS: ATIVAN PO SCH (20:54)
[2017-09-14] MEDS: ZOCOR PO SCH (21:27)
[2017-09-15] MEDS: XOPENEX 1.25 MG NEB SCH ×4 (05:16→22:43)
[2017-09-15] MEDS: LASIX IVP SCH (06:09)
[2017-09-15] MEDS: PRILOSEC PO SCH (06:09)
[2017-09-15] MEDS: NEURONTIN PO SCH ×3 (09:17→20:57)
[2017-09-15] MEDS: DECADRON 4 MG/ML SDV IVP SCH (09:17)
[2017-09-15] MEDS: FERROUS SULFATE PO SCH (09:17)
[2017-09-15] MEDS: BENICAR PO SCH (09:17)
[2017-09-15] MEDS: LANOXIN PO SCH ×2 (09:18→09:22)
[2017-09-15] MEDS: TOPROL XL PO SCH (09:18)
[2017-09-15] MEDS: MULTIVITAMIN TABLET PO SCH (09:19)
[2017-09-15] MEDS: COZAAR PO SCH (09:19)
[2017-09-15] MEDS: ASPIRIN EC PO SCH (09:19)
[2017-09-15] MEDS: PRADAXA PO SCH ×2 (09:19→20:56)
[2017-09-15] MEDS: CARDIZEM CD PO SCH (09:19)
[2017-09-15] MEDS: GLUCOPHAGE PO SCH ×2 (09:20→17:52)
[2017-09-15] MEDS: ZOCOR PO SCH (20:56)
[2017-09-15] MEDS: ROCEPHIN 1 GM in SODIUM CHLORIDE 50 ML IV SCH (20:56)
[2017-09-15] MEDS: ATIVAN PO SCH (21:03)
[2017-09-16] MEDS: LASIX IVP SCH (06:01)
[2017-09-16] MEDS: PRILOSEC PO SCH (06:01)
[2017-09-16] MEDS: HUMULIN R SUBCUT PRN ×4 (06:02→20:34)
[2017-09-16] MEDS: XOPENEX 1.25 MG NEB SCH ×4 (06:08→23:15)
[2017-09-16] MEDS: DECADRON 4 MG/ML SDV IVP SCH (09:50)
[2017-09-16] MEDS: CARDIZEM CD PO SCH (09:51)
[2017-09-16] MEDS: TOPROL XL PO SCH (09:51)
[2017-09-16] MEDS: COZAAR PO SCH (09:51)
[2017-09-16] MEDS: PRADAXA PO SCH ×2 (09:51→20:34)
[2017-09-16] MEDS: BENICAR PO SCH (09:51)
[2017-09-16] MEDS: FERROUS SULFATE PO SCH (09:52)
[2017-09-16] MEDS: MULTIVITAMIN TABLET PO SCH (09:52)
[2017-09-16] MEDS: GLUCOPHAGE PO SCH ×2 (09:52→18:23)
[2017-09-16] MEDS: NEURONTIN PO SCH ×3 (09:52→20:35)
[2017-09-16] MEDS: ASPIRIN EC PO SCH (09:52)
[2017-09-16] MEDS: LANOXIN PO SCH (09:58)
[2017-09-16] MEDS: ROCEPHIN 1 GM in SODIUM CHLORIDE 50 ML IV SCH (20:34)
[2017-09-16] MEDS: ZOCOR PO SCH (20:35)
[2017-09-16] MEDS: ATIVAN PO SCH (20:35)
[2017-09-17] MEDS: XOPENEX 1.25 MG NEB SCH ×3 (05:03→17:00)
[2017-09-17] MEDS: LASIX IVP SCH (05:45)
[2017-09-17] MEDS: PRILOSEC PO SCH (05:45)
[2017-09-17] MEDS: PRADAXA PO SCH ×2 (08:32→21:03)
[2017-09-17] MEDS: GLUCOPHAGE PO SCH ×2 (08:33→16:36)
[2017-09-17] MEDS: BENICAR PO SCH (08:33)
[2017-09-17] MEDS: COZAAR PO SCH (08:33)
[2017-09-17] MEDS: TOPROL XL PO SCH (08:33)
[2017-09-17] MEDS: CARDIZEM CD PO SCH (08:33)
[2017-09-17] MEDS: NEURONTIN PO SCH ×3 (08:33→21:03)
[2017-09-17] MEDS: FERROUS SULFATE PO SCH (08:34)
[2017-09-17] MEDS: ASPIRIN EC PO SCH (08:34)
[2017-09-17] MEDS: MULTIVITAMIN TABLET PO SCH (08:34)
[2017-09-17] MEDS: LANOXIN PO SCH (08:35)
[2017-09-17] MEDS: DECADRON 4 MG/ML SDV IVP SCH (09:49)
--- NOTE | 2017-09-17 10:09 | DI ---
EXAM: CHEST FRONTAL AND LATERAL VIEWS HISTORY: Cough, shortness of breath. COMPARISON: 09/11/2017 FINDINGS: Upper limit normal heart size is stable. There is moderate atherosclerotic disease sugges asmita. Hyperinflation and chronic appearing interstitial changes. Scattered nodular opacities remain present although less dense. No visible pleural fluid or active congestive heart failure. IMPRESSION: Previously noted nodular densities especially in the left lung have become less dense. This may repr esent resolving pneumonia. Other pathology including pulmonary nodules are not excluded.
--- NOTE | 2017-09-17 10:10 | PN ---
DATE OF SERVICE: 09/13/17 SUBJECTIVE: 82 year old white female hospitalized with acute respiratory failure combination of probably bronchitis and early CHF. The patient's condition has improved remarkably. He oxygen saturation on room air is 94%. PHYSICAL EXAMINATION: VITAL SIGNS: temperature 97, pulse 75, respiratory rate 18, blood pressure 130/ 60. HEENT: Head normocephalic, atraumatic. Eyes: Extraocular muscles are intact. Pupils are equal, round and reactive to light and accommodation. Ears: No lesions. Nose appeared normal. Throat: No exudate or erythema. Looks somewhat pale. NECK: Supple. No JVD, no carotid bruit. No lymphadenopathy or thyromegaly. LUNGS: Clear to auscultation. Percussion note normal. Chest symmetrical. HEART: S1, S2, no S3. No murmurs. No cyanosis or clubbing. No ascites. Pulses: Dorsalis pedis and posterior tibial pulses +1 to +2 both sides. ABDOMEN: Soft. Nontender. Bowel sounds active. No CVA tenderness. No mass felt. EXTREMITIES: No edema. Full range of motion of all extremities, equal. She had recent left hip fracture which was repaired. NEUROLOGIC: No focal deficit. Cranial nerves II through XII are grossly intact. No headache, no double vision or headache. The patient feels weak, dizzy with light headedness. SKIN: Not dry. Intact. Turgor - normal. LYMPHATIC: No palpable lymph nodes/no lymphedema. MUSCULOSKELETAL: Normal joints with no swelling. Muscle tone is normal. ASSESSMENT: 1. Symptomatic anemia 2. Atrial flutter/fib 3. CHF PLAN: 1. Needs to have blood transfusion at least one unit. CONDITION: Stable The patient was seen and examined with Nurse Practitioner. TIME SPENT: More than 30 minutes. Plan and coordination of the patient's care discussed in the presence of nurse. EB
--- NOTE | 2017-09-17 11:21 | PN ---
DATE OF SERVICE: 09/15/17 SUBJECTIVE: 82 year old white female hospitalized with acute respiratory failure which was combination of COPD exacerbation and possibility of CHF. The patient also had atrial fibrillation. The patient feeling a lot better. The patient was confused in the beginning but she is alert and she is feeling a lot better. Appetite has improved. The daughter is in the room and she is very happy with the patient's progress. REVIEW OF SYSTEMS: CONSTITUTIONAL: No night sweats. No fatigue, malaise, lethargy. No fever or chills. HEENT: Eyes: No visual changes. No eye pain. No eye discharge. ENT: No runny nose. No epistaxis. No sinus pain. No sore throat. No odynophagia. No congestion. RESPIRATORY: No cough, no congestion. No hemoptysis. No shortness of breath. CARDIOVASCULAR: No angina symptoms. No CHF symptoms. No atypical chest pain for CAD. No palpitations. No orthopnea. GASTROINTESTINAL: No abdominal pain. No nausea or vomiting. No diarrhea or constipation. No hematemesis. No hematochezia. GENITOURINARY: No urgency. No frequency. No dysuria. No hematuria. No obstructive symptoms. No discharge. No pain. No significant abnormal bleeding. MUSCULOSKELETAL: No musculoskeletal pain; no joint swelling. NEUROLOGICAL: No headache. No neck pain. No syncope. No seizures. No dizziness. PSYCHIATRIC: Not anxious. No depression. No suicidal thoughts. No homicidal thoughts. SKIN: No rash. No lesions. No wounds. ENDOCRINE: No unexplained weight loss. No weight gain. HEMATOLOGIC/LYMPHATIC: No anemia. No purpura. No petechiae. No prolonged or excessive bleeding. No palpable lymph nodes. PHYSICAL EXAMINATION: GENERAL: The patient is oriented to time,place and person. VITAL SIGNS: Temperature 97.9, pulse 55, respiratory rate 14, blood pressure 140/67 and pulse ox 96%. HEENT: Head normocephalic, atraumatic. Eyes: Extraocular muscles are intact. Pupils are equal, round and reactive to light and accommodation. Ears: No lesions. Nose appeared normal. Throat: No exudate or erythema. NECK: Supple. No JVD, no carotid bruit. No lymphadenopathy or thyromegaly. LUNGS: Decreased breath sounds but clear to auscultation. Percussion note normal. Chest symmetrical. HEART: S1, S2, no S3. No murmurs. No cyanosis or clubbing. No ascites. Pulses: Dorsalis pedis and posterior tibial pulses +1 to +2 both sides. ABDOMEN: Soft. Nontender. Bowel sounds active. No CVA tenderness. No mass felt. EXTREMITIES: No edema. Full range of motion of all extremities, equal. NEUROLOGIC: No focal deficit. Cranial nerves II through XII are grossly intact. No headache, no double vision or headache. SKIN: Not dry. Intact. Turgor - normal. LYMPHATIC: No palpable lymph nodes/no lymphedema. MUSCULOSKELETAL: Normal joints with no swelling. Muscle tone is normal. LABS: Hgb 10.3, hct 32, WBC 10,000 normal differential, creatinine 1.6, BUN 41, potassium 4.9, BNP 421 ASSESSMENT: 1. Acute respiratory failure seems to have resolved 2. Severe chronic lung disease with history of smoking for 55 years. 3. CHF seems to have resolved 4. Atrial fibrillation uncontrol 5. Anemia under control PLAN: 1. Monitor CBC and CMP 2. Will do PFT 3. ABG on room air CONDITION: Stable TIME SPENT: More than 30 minutes. Plan and coordination of the patient's care discussed in the presence of nurse. EB
[2017-09-17] MEDS: HUMULIN R SUBCUT PRN ×3 (11:32→21:04)
--- NOTE | 2017-09-17 11:41 | PCM.PROG ---
Attending Provider: ATTENDING PROVIDER: Dr. JIGNA CALIX This patient is seen with Araceli Montgomery, Nurse Practitioner. DATE OF SERVICE: 09/17/17 SUBJECTIVE: This 82 year old WHITE/ F was hospitalized 09/11/17. The patient is alert, lying in bed. She states breathing is better. REVIEW OF SYSTEMS: CONSTITUTIONAL: Weakness. No night sweats. No fever or chills. HEENT: Eyes: No visual changes. No eye pain. No eye discharge. ENT: No runny nose. No epistaxis. No sinus pain. No odynophagia. No congestion. RESPIRATORY: No cough, no congestion. No hemoptysis. No shortness of breath. CARDIOVASCULAR: No angina symptoms. No CHF symptoms. No atypical chest pain for CAD. No palpitations. No orthopnea.. GASTROINTESTINAL: No abdominal pain. No nausea or vomiting. No diarrhea or constipation. No hematemesis. No hematochezia. GENITOURINARY: No urgency. No frequency. No dysuria. No hematuria. No obstructive symptoms. No discharge. No pain. No significant abnormal bleeding. MUSCULOSKELETAL: Left hip pain. NEUROLOGICAL: Awake, alert, oriented to time, place and person. No headache. No neck pain. No syncope. No seizures. No dizziness. PSYCHIATRIC: Not anxious. No depression. No suicidal thoughts. No homicidal thoughts. SKIN: No rash. No lesions. No wounds. ENDOCRINE: No unexplained weight loss. No weight gain. HEMATOLOGIC/LYMPHATIC: No anemia. No purpura. No petechiae. No prolonged or excessive bleeding. No palpable lymph nodes. PHYSICAL EXAMINATION: GENERAL: The patient is awake, alert and oriented, lying in bed in no distress. VITAL SIGNS: Temperature 97.1 F, Pulse 62, Respiratory Rate 20, BP 157/66, Pulse Ox 99% HEENT: Head normocephalic, atraumatic. Eyes: Extraocular muscles are intact. Pupils are equal, round and reactive to light and accommodation. Ears: No lesions. Nose appeared normal. Throat: No exudate or erythema. NECK: Supple. No JVD, no carotid bruit. No lymphadenopathy or thyromegaly. LUNGS: Diminished breath sounds bilaterally. Clear to auscultation. Percussion note normal. Chest symmetrical. HEART: Irregular heart rate. S1, S2, no S3. No murmurs. No cyanosis or clubbing. No ascites. Pulses: Dorsalis pedis and posterior tibial pulses +1 to +2 both sides. ABDOMEN: Soft. Non-tender. Bowel sounds active. No CVA tenderness. No mass felt. EXTREMITIES: No edema. Full range of motion of all extremities, equal. NEUROLOGIC: No focal deficit. Cranial nerves II through XII are grossly intact. No headache, no double vision or headache. SKIN: Not dry. Intact. Turgor-normal. LYMPHATIC: No palpable lymph nodes/no lymphedema. MUSCULOSKELETAL: Normal joints with no swelling. Muscle tone is normal. LAB REVIEW: 09/17/17 04:30 09/17/17 04:30 09/17/17 04:30: Sodium 140, Potassium 4.0, Chloride 97 L, Carbon Dioxide 35 H, Anion Gap 12.0, BUN 34 H, Creatinine 1.25, Estimated GFR (MDRD) 41.00, BUN/ Creatinine Ratio 27.20, Glucose 118 H, Calcium 7.9 L, Total Bilirubin 0.5, AST 18, ALT 19, Alkaline Phosphatase 64, Total Protein 5.7 L, Albumin 2.6 L, Globulin 3.1, Albumin/Globulin Ratio 0.84 09/17/17 04:30: WBC 10.56 H, RBC 3.23 L, Hgb 9.9 L, Hct 30.9 L, MCV 95.7, MCH 30.7, MCHC 32.0, RDW Coeff of James 15.7 H, Plt Count 226, Immature Gran % (Auto) 1.0, Neut % (Auto) 81.2, Lymph % (Auto) 8.0 L, Brooke % (Auto) 9.7, Eos % (Auto) 0.0, Baso % (Auto) 0.1, Immature Gran # (Auto) 0.1, Neut # 8.6 H, Lymph # 0.9, Brooke # 1.0, Eos # 0.0, Baso # 0.0 ASSESSMENT: 1. Acute respiratory failure seems to have resolved with pulse ox 94% on room air. 2. Atrial fibrillation 3. Anemia. 4. Left hip repair recently. 5. Left ventricular failure. 6. Bronchitis. PLAN: 1. Repeat chest x-ray 2. Attempt to wean off 02 3. Possible discharge home Plan and coordination of the patient's care discussed in the presence of Stock Raiser and nurse. CONDITION: Stable SCRIBED BY: EDWIN EMERSON, Business Education Instructor scribed while in presence of service performed by Dr. Calix/Araceli Montgomery APRN on 09/17/17 ([id number])
--- NOTE | 2017-09-17 13:56 | ECHO2D ---
Date of Exam: 09/14/17 Ordering Physician: DR. JIGNA CALIX Room #: 117 Reason for Echo: CHF, RESPIRATORY FAILURE M-Mode Normal Adult Results LV Dimensions Normal Adult Results AoV Opening excursions >1.6 >1.6 LVEDD-base- 3.5-5.8 4.0 Ao root dimensions 2.0-3.7 3.1 LVESD-base- 3.1-4.6 L. Atrium dimensions 1.9-3.8 4.6 Post. Wall thickness 0.8-1.1 1.1 IV septum (thickness) 0.7-1.2 1.1 Post. Wall excursion 0.72-1.3 NORMAL Septal motion NORMAL Systolic motion R. Ventricular cavity 1.5-2.0 3.5 LVEF 60% 67% Paradoxical septal wall motion NORMAL 2-D : NORMAL LEFT VENTRICULAR CONTRACTILITY, NORMAL VALVES, NO EFFUSION, NO THROMBUS, ENLARGED LEFT ATRIAL CAVITY M-MODE: MV: NORMAL AV: NORMAL TV: NORMAL PV: CHAMBER SIZE: ENLARGED LEFT ATRIAL CAVITY WALL MOTION: NORMAL PERICARDIUM: NORMAL INTERPRETATION: 1. NORMAL LEFT VENTRICULAR CONTRACTILITY 2. NORMAL VALVES 3. ENLARGED LEFT ATRIAL CAVITY AND RIGHT VENTRICLE CAVITY MTDD
--- NOTE | 2017-09-17 14:45 | PN ---
DATE OF SERVICE: 09/16/17 SUBJECTIVE: 82 year old white female hospitalized with acute respiratory failure. The patient's condition has improved remarkably. She is not confused for past two days. She is very happy. Up and about. The patient had left hip repair by Dr. Aguilar on 08/23/17. The patient has been given a couple of units of packed red cells. Appetite has improved. CHF has resolved. Asthma and bronchitis has resolved. REVIEW OF SYSTEMS: CONSTITUTIONAL: No night sweats. No fatigue, malaise, lethargy. No fever or chills. HEENT: Eyes: No visual changes. No eye pain. No eye discharge. ENT: No runny nose. No epistaxis. No sinus pain. No sore throat. No odynophagia. No congestion. RESPIRATORY: No cough, no congestion. No hemoptysis. No shortness of breath. CARDIOVASCULAR: No angina symptoms. No CHF symptoms. No atypical chest pain for CAD. No palpitations. No orthopnea. GASTROINTESTINAL: No abdominal pain. No nausea or vomiting. No diarrhea or constipation. No hematemesis. No hematochezia. GENITOURINARY: No urgency. No frequency. No dysuria. No hematuria. No obstructive symptoms. No discharge. No pain. No significant abnormal bleeding. MUSCULOSKELETAL: No musculoskeletal pain; no joint swelling. NEUROLOGICAL: No headache. No neck pain. No syncope. No seizures. No dizziness. PSYCHIATRIC: Not anxious. No depression. No suicidal thoughts. No homicidal thoughts. SKIN: No rash. No lesions. No wounds. ENDOCRINE: No unexplained weight loss. No weight gain. HEMATOLOGIC/LYMPHATIC: No anemia. No purpura. No petechiae. No prolonged or excessive bleeding. No palpable lymph nodes. PHYSICAL EXAMINATION: GENERAL: The patient is oriented to time, place and person. VITAL SIGNS: Temperature 97.4, pulse 60, respiratory rate 20, blood pressure 160/70 and pulse ox 100%. HEENT: Head normocephalic, atraumatic. Eyes: Extraocular muscles are intact. Pupils are equal, round and reactive to light and accommodation. Ears: No lesions. Nose appeared normal. Throat: No exudate or erythema. NECK: Supple. No JVD, no carotid bruit. No lymphadenopathy or thyromegaly. LUNGS:Decreased breath sounds but clear to auscultation. Percussion note normal. Chest symmetrical. HEART: S1, S2, no S3. No murmurs. No cyanosis or clubbing. No ascites. Pulses: Dorsalis pedis and posterior tibial pulses +1 to +2 both sides. ABDOMEN: Soft. Nontender. Bowel sounds active. No CVA tenderness. No mass felt. EXTREMITIES: No edema. Full range of motion of all extremities, equal. NEUROLOGIC: No focal deficit. Cranial nerves II through XII are grossly intact. No headache, no double vision or headache. SKIN: Not dry. Intact. Turgor - somewhat better. Looks like somewhat pale. LYMPHATIC: No palpable lymph nodes/no lymphedema. MUSCULOSKELETAL: Normal joints with no swelling. Muscle tone is normal. LABS: Hgb 9.9, hct 30, WBC 9,200 normal differential, creatinine 1.4, BUN 40, potassium 4. ASSESSMENT: 1. Acute respiratory failure resolved 2. Bronchitis with COPD under control 3. CHF resolved 4. Atrial fibrillation under control 5. Anemia, stable Hgb 9.9 and hct 30. 6. Dementia resolved 7. Left hip repair recently 08/23/17 and progressing very well. PLAN: 1. Continue all the medication for now 2. Will discharge home probably likely tomorrow 3. Steroids and antibiotics 4. The patient had PFT done today 5. The patient had a poor effort but definitely has chronic lung disease CONDITION: Stable. The patient's daughter was in the room yesterday and case was discussed with her in detail. TIME SPENT: More than 30 minutes. Plan and coordination of the patient's care discussed in the presence of nurse. EB
--- NOTE | 2017-09-17 15:42 | CT ---
EXAM: CT chest without contrast HISTORY: Abnormal chest radiograph COMPARISON: Radiograph chest 09/17/[address] chest 01/19/2012 TECHNIQUE: CT chest performed without intravenous contrast. Coronal and sagittal reformatted images obtained. FINDINGS: There is a stable sub centimeter left thyroid nodule, grossly unchanged from 2012. Heart normal in size. Coronary calcifications. No pericardial effusion. Aorta normal in caliber. Mild a therosclerosis. Evaluation for lymphadenopathy limited without contrast. Stable mildly enlarged pre carinal lymph node measuring 1.2 cm, unchanged from 2012, consistent with benign etiology. Visualize d portion upper abdomen demonstrates no acute abnormality. No acute abnormalities of the bones. Deg enerative change in the spine. Central airway patent. Small to moderate right and small left pleura l effusions. Patchy bilateral ground-glass and nodular infiltrates throughout all lobes of the lung. IMPRESSION: 1. Patchy bilateral nodular and ground-glass infiltrates throughout all lobes of the lung, likely re presenting pneumonia or atypical infectious process. CT chest follow-up recommended in 6 - 8 weeks t o ensure resolution. 2. Small to moderate right and small left pleural effusions. 3. Cardiomegaly. Coronary calcifications. Atherosclerosis.
[2017-09-17] MEDS: ROCEPHIN 1 GM in SODIUM CHLORIDE 50 ML IV SCH (21:02)
[2017-09-17] MEDS: ATIVAN PO SCH (21:03)
[2017-09-17] MEDS: ZOCOR PO SCH (21:03)
[2017-09-18] MEDS: XOPENEX 1.25 MG NEB SCH ×3 (00:04→11:17)
[2017-09-18] MEDS: LASIX IVP SCH (05:56)
[2017-09-18] MEDS: PRILOSEC PO SCH (05:56)
--- NOTE | 2017-09-18 10:09 | PCM.PROG ---
Attending Provider: ATTENDING PROVIDER: Dr. JIGNA CALIX This patient is seen with Araceli Montgomery, Nurse Practitioner. DATE OF SERVICE: 09/18/17 SUBJECTIVE: This 82 year old WHITE/ F was hospitalized 09/11/17. Lying in bed, alert. Unable to wean from oxygen yesterday. Breathing slightly more labored today. CT scan worsened. REVIEW OF SYSTEMS: CONSTITUTIONAL: Weakness. No night sweats. No fever or chills. HEENT: Eyes: No visual changes. No eye pain. No eye discharge. ENT: No runny nose. No epistaxis. No sinus pain. No odynophagia. No congestion. RESPIRATORY: Cough and congestion. No hemoptysis. Positive for shortness of breath. CARDIOVASCULAR: No angina symptoms. No CHF symptoms. No atypical chest pain for CAD. No palpitations. No orthopnea.. GASTROINTESTINAL: No abdominal pain. No nausea or vomiting. No diarrhea or constipation. No hematemesis. No hematochezia. GENITOURINARY: No urgency. No frequency. No dysuria. No hematuria. No obstructive symptoms. No discharge. No pain. No significant abnormal bleeding. MUSCULOSKELETAL: No musculoskeletal pain; no joint swelling. NEUROLOGICAL: Awake, alert, oriented to time, place and person. No headache. No neck pain. No syncope. No seizures. No dizziness. PSYCHIATRIC: Not anxious. No depression. No suicidal thoughts. No homicidal thoughts. SKIN: No rash. No lesions. No wounds. ENDOCRINE: No unexplained weight loss. No weight gain. HEMATOLOGIC/LYMPHATIC: No anemia. No purpura. No petechiae. No prolonged or excessive bleeding. No palpable lymph nodes. PHYSICAL EXAMINATION: GENERAL: The patient is awake, alert and oriented, lying in bed in no distress. VITAL SIGNS: Temperature 98.5 F, Pulse 85, Respiratory Rate 20, BP 173/69, Pulse Ox 97% HEENT: Head normocephalic, atraumatic. Eyes: Extraocular muscles are intact. Pupils are equal, round and reactive to light and accommodation. Ears: No lesions. Nose appeared normal. Throat: No exudate or erythema. NECK: Supple. No JVD, no carotid bruit. No lymphadenopathy or thyromegaly. LUNGS: Crepitations bilaterally. Percussion note normal. Chest symmetrical. HEART: S1, S2, no S3. No murmurs. No cyanosis or clubbing. No ascites. Pulses: Dorsalis pedis and posterior tibial pulses +1 to +2 both sides. ABDOMEN: Soft. Non-tender. Bowel sounds active. No CVA tenderness. No mass felt. EXTREMITIES: Trace lower extremity edema. Full range of motion of all extremities, equal. NEUROLOGIC: No focal deficit. Cranial nerves II through XII are grossly intact. No headache, no double vision or headache. SKIN: Not dry. Intact. Turgor-normal. LYMPHATIC: No palpable lymph nodes/no lymphedema. MUSCULOSKELETAL: Normal joints with no swelling. Muscle tone is normal. LAB REVIEW: 09/18/17 03:45 09/18/17 03:45 09/18/17 03:45: Sodium 140, Potassium 4.0, Chloride 97 L, Carbon Dioxide 35 H, Anion Gap 12.0, BUN 34 H, Creatinine 1.20, Estimated GFR (MDRD) 43.00, BUN/ Creatinine Ratio 28.33, Glucose 137 H, Calcium 8.0 L, Total Bilirubin 0.5, AST 20, ALT 17, Alkaline Phosphatase 63, Total Protein 5.7 L, Albumin 2.6 L, Globulin 3.1, Albumin/Globulin Ratio 0.84, Digoxin 1.08 09/18/17 03:45: WBC 10.42 H, RBC 3.26 L, Hgb 10.1 L, Hct 31.3 L, MCV 96.0, MCH 31.0, MCHC 32.3, RDW Coeff of James 15.8 H, Plt Count 234, Immature Gran % (Auto) 1.2, Neut % (Auto) 81.4, Lymph % (Auto) 7.8 L, [place] % (Auto) 9.3, Eos % (Auto) 0.1, Baso % (Auto) 0.2, Immature Gran # (Auto) 0.1, Neut # 8.5 H, Lymph # 0.8, [place] # 1.0, Eos # 0.0, Baso # 0.0 ASSESSMENT: 1. Bilateral pneumonia per CT scan 2. Acute respiratory failure 3. Atrial fibrillation 4. Anemia. 5. Left hip repair recently. 6. Left ventricular failure. 7. Bronchitis. PLAN: 1. D/C Decadron IV 2. Vanco 500 q.12 IV 3. Solu-Medrol 100 IV q.8 Plan and coordination of the patient's care discussed in the presence of Materials Analyst and nurse. CONDITION: STABLE SCRIBED BY: EDWIN EMERSON Ethanol Maintenance Mechanic scribed while in presence of service performed by Dr. Calix/Araceli Montgomery APRN on 09/18/17 ([id number])
[2017-09-18] MEDS: ASPIRIN EC PO SCH (10:33)
[2017-09-18] MEDS: GLUCOPHAGE PO SCH (10:33)
[2017-09-18] MEDS: TOPROL XL PO SCH (10:33)
[2017-09-18] MEDS: MULTIVITAMIN TABLET PO SCH (10:33)
[2017-09-18] MEDS: FERROUS SULFATE PO SCH (10:33)
[2017-09-18] MEDS: BENICAR PO SCH (10:33)
[2017-09-18] MEDS: DECADRON 4 MG/ML SDV IVP SCH (10:34)
[2017-09-18] MEDS: PRADAXA PO SCH (10:34)
[2017-09-18] MEDS: LANOXIN PO SCH (10:34)
[2017-09-18] MEDS: NEURONTIN PO SCH ×2 (10:34→14:39)
[2017-09-18] MEDS: CARDIZEM CD PO SCH (10:34)
[2017-09-18] MEDS: COZAAR PO SCH (10:35)
[2017-09-18 15:05] VITALS: BP 141/61; TEMP 98.2
--- NOTE | 2017-09-20 10:32 | PN ---
DATE OF SERVICE: 09/14/17 SUBJECTIVE: The patient is hospitalized with acute respiratory failure, likely from a combination of chronic lung disease. She was a heavy smoker and smoked for 55 years. She probably has early CHF. The patient had an echocardiogram done today which showed enlarged RV cavity, normal LV function with normal ejection fraction and valves. The patient is in atrial fibrillation with mildly enlarged left atrium. After blood transfusion, she feels 100% better. REVIEW OF SYSTEMS: CONSTITUTIONAL: No night sweats. No fatigue, malaise, lethargy. No fever or chills. HEENT: Eyes: No visual changes. No eye pain. No eye discharge. ENT: No runny nose. No epistaxis. No sinus pain. No sore throat. No odynophagia. No congestion. RESPIRATORY: No cough, no congestion. No hemoptysis. No shortness of breath. CARDIOVASCULAR: No angina symptoms. No CHF symptoms. No atypical chest pain for CAD. No palpitations. No orthopnea. GASTROINTESTINAL: No abdominal pain. No nausea or vomiting. No diarrhea or constipation. No hematemesis. No hematochezia. GENITOURINARY: No urgency. No frequency. No dysuria. No hematuria. No obstructive symptoms. No discharge. No pain. No significant abnormal bleeding. MUSCULOSKELETAL: No musculoskeletal pain; no joint swelling. NEUROLOGICAL: No headache. No neck pain. No syncope. No seizures. No dizziness. PSYCHIATRIC: Not anxious. No depression. No suicidal thoughts. No homicidal thoughts. SKIN: No rash. No lesions. No wounds. ENDOCRINE: No unexplained weight loss. No weight gain. HEMATOLOGIC/LYMPHATIC: No anemia. No purpura. No petechiae. No prolonged or excessive bleeding. No palpable lymph nodes. PHYSICAL EXAMINATION: GENERAL: The patient is oriented to time, place and person. VITAL SIGNS: Temperature 98.5, pulse 64, respiratory rate 16, BP 148/70, pulse ox 96%. She looks somewhat pale. HEENT: Head normocephalic, atraumatic. Eyes: Extraocular muscles are intact. Pupils are equal, round and reactive to light and accommodation. Ears: No lesions. Nose appeared normal. Throat: No exudate or erythema. NECK: Supple. No JVD, no carotid bruit. No lymphadenopathy or thyromegaly. LUNGS: Clear to auscultation. Percussion note normal. Chest symmetrical. HEART: S1, S2, no S3. No murmurs. No cyanosis or clubbing. No ascites. Pulses: Dorsalis pedis and posterior tibial pulses +1 to +2 both sides. ABDOMEN: Soft. Nontender. Bowel sounds active. No CVA tenderness. No mass felt. EXTREMITIES: No edema. Full range of motion of all extremities, equal. NEUROLOGIC: No focal deficit. Cranial nerves II through XII are grossly intact. No headache, no double vision or headache. SKIN: Not dry. Intact. Turgor - normal. LYMPHATIC: No palpable lymph nodes/no lymphedema. MUSCULOSKELETAL: Normal joints with no swelling. Muscle tone is normal. LABS: Hemoglobin 9.8, hematocrit 29, WBC 8,900, normal differential. Creatinine 1.7, BUN 35, potassium 3.7, glucose 168. BNP 421 on admission. ASSESSMENT: 1. ACUTE RESPIRATORY FAILURE LIKELY FROM CHRONIC LUNG DISEASE WITH BRONCHITIS 2. POSSIBILITY OF CHF 3. ANEMIA 4. RECENT FRACTURE OF THE LEFT HIP REPAIR 5. CHRONIC KIDNEY DISEASE 6. HYPERGLYCEMIA PLAN: 1. Continue the same management with [place], steroids, nebs treatment, antibiotics. 2. Continue Cardizem and Lanoxin. The patient is in atrial fib controlled ventricular response. She is on Metoprolol 200 mg every morning along with Losartan. She is hypertensive. BP is under control. She has multiple medical problems and this all seems to be stable. There is no evidence of CHF. No active bleeding. The patient had surgery and I think she is anemic from that. Compromised kidney function and is going to need Lanoxin level. The reason for transfusion was shortness of breath, inability to get up and cooperate with physical therapy, practically no strength. The patient also had CHF; in short, the patient was symptomatic from her anemia with very poor appetite, would have taken her a long time to have built up iron level. TIME SPENT: More than 30 minutes. Plan and coordination of the patient's care discussed in the presence of nurse. EB
--- NOTE | 2017-09-20 10:43 | PN ---
DATE OF SERVICE: 09/17/17 SUBJECTIVE: 82 year old white female hospitalized with CHF and acute respiratory failure. The patient has severe chronic lung disease. The patient's condition has improved. The patient was seen and examined with Nurse Practitioner. Her kidney functions have improved. Creatinine 1.2, BUN 25. PLAN: 1. Will do Lanoxin level in the morning 2. Will CT scan of the chest for the shadow it showed, heavy smoker for 55 years. CONDITION: Stable TIME SPENT: More than 30 minutes. Plan and coordination of the patient's care discussed in the presence of nurse. EB
--- NOTE | 2017-11-15 14:25 | HP ---
DATE OF SERVICE: 09/11/17 HISTORY OF PRESENT ILLNESS: This is an 82-year-old white female who was brought in to the emergency room by ambulance after complaining of worsening shortness of breath. She recently had a left total hip replacement and she has been on oxygen since then. Her 02 sat at the residential was 88%. PAST MEDICAL HISTORY: CHF Atrial fibrillation Hypokalemia Hypertension COPD GERD Dyslipidemia Diabetes mellitus Type 2 Anemia Former smoker Dementia History of falls PAST SURGICAL HISTORY: Recent left partial hip arthroplasty in August 2017 REVIEW OF SYSTEMS: CONSTITUTIONAL: Weakness, fatigue. No night sweats. No malaise, lethargy. No fever or chills. HEENT: Eyes: No visual changes. No eye pain. No eye discharge. ENT: No runny nose. No epistaxis. No sinus pain. No sore throat. No odynophagia. No ear pain. No congestion. RESPIRATORY: No cough, no congestion. No hemoptysis. Shortness of breath. CARDIOVASCULAR: No angina symptoms. No CHF symptoms. No atypical chest pain for CAD. No palpitations. No orthopnea. GASTROINTESTINAL: No abdominal pain. No nausea or vomiting. No diarrhea or constipation. No hematemesis. No hematochezia. GENITOURINARY: No urgency. No frequency. No dysuria. No hematuria. No obstructive symptoms. No discharge. No pain. No significant abnormal bleeding. MUSCULOSKELETAL: No musculoskeletal pain. No joint swelling. No arthritis. NEUROLOGICAL: No headache. No neck pain. No syncope. No seizures. No dizziness. PSYCHIATRIC: Not anxious. No depression. No suicidal thoughts. No homicidal thoughts. SKIN: No rash. No lesions. No wounds. ENDOCRINE: No unexplained weight loss. No weight gain. HEMATOLOGIC/LYMPHATIC: No anemia. No purpura. No petechiae. No prolonged or excessive bleeding. No palpable lymph nodes. PERSONAL/FAMILY/SOCIAL HISTORY: Family history is positive for coronary artery disease, diabetes, hypertension and stroke. Social history: The patient is a former smoker. She has been at [facility] for physical therapy. No alcohol or ilicit drug use. MEDICATIONS: (HOME) Glucophage 500 mg p.o. b.i.d with meal Toprol XL 200 mg p.o. daily Ativan 1 mg p.o. bedtime Prilosec 20 mg p.o. q.d. a.c. Aspirin 81 mg p.o. daily with meal Lasix 20 mg p.o. daily Zocor 10 mg p.o. bedtime ALLERGIES: ATORVASTATIN, EZETIMIBE, GLIMEPIRIDE, ROSUVASTATIN PHYSICAL EXAMINATION: V/S: Temperature 97.8, heart rate 70, respiratiosn 24, BP 160/75, pulse ox 100. HEENT: Head normocephalic, atraumatic. Eyes: Extraocular muscles are intact. Pupils are equal, round and reactive to light and accommodation. Ears: No lesions. Nose appeared normal. Throat: No exudate or erythema. NECK: Supple. No JVD, no carotid bruit. No lymphadenopathy or thyromegaly. LUNGS: Diminished breath sounds bilaterally. Clear to auscultation. Percussion note normal. Chest symmetrical. HEART: Irregular heart rate consistent with atrial fibrillation. S1, S2, no S3. No murmurs. No cyanosis or clubbing. No ascites. Pulses: Dorsalis pedis and posterior tibial pulses +1 to +2 both sides. ABDOMEN: Soft. Nontender. Bowel sounds active. No CVA tenderness. No mass felt. EXTREMITIES: +2 pitting edema bilateral lower extremities. Full range of motion of all extremities, equal. NEUROLOGIC: Alert, oriented to person and place. No focal deficit. Cranial nerves II through XII are grossly intact. No headache, no double vision or headache. SKIN: Not dry. Intact. Turgor - normal. LYMPHATIC: No palpable lymph nodes/no lymphedema. MUSCULOSKELETAL: Normal joints with no swelling. Muscle tone is normal. LABS ON ADMISSION: White count 11.36, hemoglobin 8.8, hematocrit 27.3, platelets 292. Sodium 138, potassium 3.6, BUN, creatinine 0.73, glucose 132. ABGs on room air 02 sat 89, pH 7.498, pc02 41.7, p02 52, bicarb 32.3, total c02 34, base excess of 9. BNP 747. ASSESSMENT: 1. ACUTE RESPIRATORY FAILURE 2. ACUTE ON CHRONIC RENAL FAILURE 3. SHORTNESS OF BREATH 4. ANEMIA 5. STATUS POST LEFT HIP ARTHROPLASTY 6. GENERALIZED WEAKNESS 7. SHORTNESS OF BREATH 8. POSSIBLE PNEUMONIA PLAN: 1. Will admit 2. Venous scan in the morning 3. CBC, CMP daily 4. Routine telemetry orders 5. Rocephin 1 gm IV daily 6. Solu-Medrol 125 mg IV q.8hr 7. Xopenex neb treatments q.6hr scheduled 8. Regular diet 9. Elevate legs 10. 40 mg of IV Lasix now 11. Continue all home medications 12. Chest x-ray 13. Oxygen as needed 14. Repeat ABGs in the morning TIME SPENT: More than 70 minutes. MTDD
== END 2017-09-18 15:10 | disposition swing bed (61) | DRG 202 ==
LOC: ED 14:59 → MEDSURG B 19:51
PROVIDERS: ADMIT Internal Medicine; ATTEND Internal Medicine
PROC: 30233N1 Transfusion of Nonautologous Red Blood Cells into Peripheral Vein, Percutaneous Approach (ICD-10-PCS; principal; 2017-09-13)
DX: J21.9 Acute bronchiolitis, unspecified (principal); J96.90 Respiratory failure, unspecified, unspecified whether with hypoxia or hypercapnia; I50.9 Heart failure, unspecified; R05 Cough; I10 Essential (primary) hypertension; I48.91 Unspecified atrial fibrillation; Z87.891 Personal history of nicotine dependence; Z99.81 Dependence on supplemental oxygen; Z96.642 Presence of left artificial hip joint; R23.8 Other skin changes; E87.6 Hypokalemia; K21.9 Gastro-esophageal reflux disease without esophagitis; E78.5 Hyperlipidemia, unspecified; E11.9 Type 2 diabetes mellitus without complications; D64.9 Anemia, unspecified; I51.7 Cardiomegaly
CPT/HCPCS: 36415; 36430; 80053; 80162; 82550; 82553; 82803; 82962; 83880; 84484; 85014; 85018; 85025; 86850; 86900; 86922; 93005; 93010; 94640; 96365; 96375; 99223; 99232; 99239; 99284

== ENCOUNTER 2017-09-18 15:10 | Inpatient (IN) ==
[2017-09-18] MEDS ORDERED: TYLENOL PO PRN (15:39)
[2017-09-18] MEDS ORDERED: XOPENEX 0.63 MG NEB PRN (15:42)
[2017-09-18] MEDS ORDERED: ZOFRAN 4 MG/2 ML IVP PRN (15:43)
[2017-09-18] MEDS ORDERED: NORCO 5-325 PO PRN (15:46)
--- NOTE | 2017-09-18 16:35 | RS.OTINEVL ---
Subjective - Patient information Date of Evaluation: 09/18/17 Date of Arrival on Unit: 09/18/17 Admitted From:: In-House Transfer Usual Living Arrangement: Long Term Living Arrangement Comments: pt transferred from [facility]. pt had lived alone prior to hip fx. Surgical History Comments:: Left hip surgery 08/2017. Subjective Information/ Patient Comments:: "I'm so glad to get more therapy." - Level of function Prior to this admission, the patient could do the following:: Independent Selfcare, Independent ADL's, Independent Ambulation Abilities prior to this admission: Pt was living at home alone and not using an assistive device. Pain Assessment - Pain Pain Score: 0 Interventions - Objective Patient Orientation: Person, Place, Time, Situation Current Interventions: IV's, Oxygen Observation: Pt is weak but is improving. Pt has impaired balance. Interventions - ROM Right Upper Extremity AROM: WFL's Left Upper Extremity AROM: WFL's - Strength Right Upper Extremity Strength: Mild Weakness Left Upper Extremity Strength: Mild Weakness - Sensation Right Upper Extremity Sensation: Intact/Normal Left Upper Extremity Sensation: Intact/Normal Balance - Sitting Balance Static Sitting Balance: Good Dynamic Sitting Balance: Fair - Standing Balance Static Standing Balance: Fair Dynamic Standing Balance: Fair ADL Skills - Self Feeding Self Feeding: Independent - Grooming Grooming: Min Assist - Bathing Bathing UE: CGA Bathing LE: Mod Assist - Dressing Dressing UE: CGA Dressing LE: Mod Assist - Toilet Management Toileting Management: Min Assist Functional Mobility - Bed Mobility Rolling R/L: CGA Scooting: CGA Supine to Sit: CGA Sit to Supine: Min Assist - Transfers Sit to Stand: Min Assist Stand to Sit: CGA Stand Pivot Transfers: Min Assist - Ambulation Weight Bearing Status: WBAT Assistive Device Used: Rolling Walker Assistance needed with Ambulation: Min Assist - Safety Awareness Safety Awareness: Good Additional Treatment Performed - Time with patient Total treatment time: 18 Activities Patient Interests:: Watching Television, Visiting/Socializing Patient Education Patient Education: Education of diagnosis, Home Exercise Program, Home Safety, Education of Plan of Care Teaching Recipient: Patient, Family Teaching Methods: Teach Back Method Used, Discussion, Demonstration Assessment Problem List:: Decreased level of function, Requires training/education, Decreased safety/Risk of falls, Weakness Rehab Potential: Good Further Therapy Indicated?: Yes Short Term Goals - Goals GOAL 1: Pt will utilize appropriate AD/AE for increase safety with ADL performance. Goal to be met by: 09/25/17 Progress towards goal: Progressing GOAL 2: Pt to increase BUE strength to 4/5 to improve ambulation with RW. Goal to be met by: 09/25/17 Progress towards goal: Progressing GOAL 3: Pt to increase dyn. std. bal. to F+/good for sink level ADLS. Goal to be met by: 09/25/17 Progress towards goal: Progressing Greenhouse Transplanter Goals GOAL 1: Pt will utilize appropriate AD/AE for increase safety with ADL performance. Goal to be met by: 10/02/17 Progress towards goal: Progressing GOAL 2: Pt to increase BUE strength to 4+/5 to improve ambulation with RW/ Goal to be met by: 10/02/17 Progress towards goal: Progressing GOAL 3: Pt to increase dyn. std. bal. to good+ for sink level ADLS. Goal to be met by: 10/02/17 Progress towards goal: Progressing Plan Plan of Care: Therapeutic EX, Neuromuscular Re-Educ, Therapeutic Activity, Self- Care/Home Management Frequency of Treatment: 1-2 X day, as tolerated Duration of Treatment: 2 Weeks Anticipated Discharge Destination: Home Has the Physician been added for Co-signature?: Yes
[2017-09-18] MEDS: GLUCOPHAGE PO SCH (17:17)
[2017-09-18] MEDS: XOPENEX 1.25 MG NEB SCH ×2 (17:25→23:13)
[2017-09-18] MEDS: HUMULIN R SUBCUT PRN (17:32)
[2017-09-18] MEDS: VANCOMYCIN 1 GM in SODIUM CHLORIDE 250 ML IV SCH (17:32)
[2017-09-18] MEDS ORDERED: DABIGATRAN ETEXILATE MESYLATE 150 MG PO SCH (21:00)
[2017-09-18] MEDS ORDERED: VANCOMYCIN 500 MG in SODIUM CHLORIDE 100 ML IV SCH (21:00)
[2017-09-18] MEDS: ROCEPHIN 1 GM in SODIUM CHLORIDE 50 ML IV SCH (21:12)
[2017-09-18] MEDS: ZOCOR PO SCH (21:45)
[2017-09-18] MEDS: ATIVAN PO SCH (21:45)
[2017-09-18] MEDS: NEURONTIN PO SCH (21:45)
[2017-09-18] MEDS: PRADAXA PO SCH (21:46)
[2017-09-18] MEDS: SOLU-MEDROL 125 MG IVP SCH (21:47)
[2017-09-19] MEDS: HUMULIN R SUBCUT PRN ×2 (00:24→18:30)
[2017-09-19] MEDS: XOPENEX 1.25 MG NEB SCH ×4 (04:27→22:46)
[2017-09-19] MEDS: LASIX IVP SCH (05:48)
[2017-09-19] MEDS: PRILOSEC PO SCH (05:48)
[2017-09-19] MEDS: SOLU-MEDROL 125 MG IVP SCH ×3 (05:48→21:37)
[2017-09-19] MEDS ORDERED: METOPROLOL SUCCINATE 200 MG PO SCH (09:00)
[2017-09-19] MEDS ORDERED: NON-FORMULARY MEDICATION (Ferrous Gluconate [Ferrous Gluconate] 324 MG) PO SCH (09:00)
[2017-09-19] MEDS ORDERED: NON-FORMULARY MEDICATION (Olmesartan Medoxomil [Benicar] 40 MG) PO SCH (09:00)
[2017-09-19] MEDS ORDERED: NON-FORMULARY MEDICATION (Multivitamin 1 CAP) PO SCH (09:00)
[2017-09-19] MEDS: GLUCOPHAGE PO SCH ×2 (09:28→17:22)
[2017-09-19] MEDS: LANOXIN PO SCH (09:28)
[2017-09-19] MEDS: CARDIZEM CD PO SCH (09:28)
[2017-09-19] MEDS: FERROUS SULFATE PO SCH (09:28)
[2017-09-19] MEDS: ASPIRIN EC PO SCH (09:28)
[2017-09-19] MEDS: COZAAR PO SCH (09:28)
[2017-09-19] MEDS: MULTIVITAMIN TABLET PO SCH (09:29)
[2017-09-19] MEDS: TOPROL XL PO SCH (09:29)
[2017-09-19] MEDS: NEURONTIN PO SCH ×3 (09:29→21:32)
[2017-09-19] MEDS: VANCOMYCIN 1 GM in SODIUM CHLORIDE 250 ML IV SCH (09:30)
[2017-09-19] MEDS: BENICAR PO SCH (09:30)
[2017-09-19] MEDS: PRADAXA PO SCH ×2 (09:31→21:32)
--- NOTE | 2017-09-19 10:01 | PCM.PROG ---
Attending Provider: ATTENDING PROVIDER: Dr. JIGNA CALIX DATE OF SERVICE: 09/19/17 SUBJECTIVE: This 82 year old WHITE/ F was hospitalized 09/18/17. The patient is hospitalized in swing bed. Respiratory status has improved. She looks better than yesterday and is in no distress. Oxygen saturation 97% on 2L. REVIEW OF SYSTEMS: CONSTITUTIONAL: No night sweats. No fatigue, malaise, lethargy. No fever or chills. HEENT: Eyes: No visual changes. No eye pain. No eye discharge. ENT: No runny nose. No epistaxis. No sinus pain. No odynophagia. No congestion. RESPIRATORY: No cough, no congestion. No hemoptysis. No shortness of breath. CARDIOVASCULAR: No angina symptoms. No CHF symptoms. No atypical chest pain for CAD. No palpitations. No orthopnea.. GASTROINTESTINAL: No abdominal pain. No nausea or vomiting. No diarrhea or constipation. No hematemesis. No hematochezia. GENITOURINARY: No urgency. No frequency. No dysuria. No hematuria. No obstructive symptoms. No discharge. No pain. No significant abnormal bleeding. MUSCULOSKELETAL: No musculoskeletal pain; no joint swelling. NEUROLOGICAL: Awake, alert, oriented to time, place and person. No headache. No neck pain. No syncope. No seizures. No dizziness. PSYCHIATRIC: Not anxious. No depression. No suicidal thoughts. No homicidal thoughts. SKIN: No rash. No lesions. No wounds. ENDOCRINE: No unexplained weight loss. No weight gain. HEMATOLOGIC/LYMPHATIC: No anemia. No purpura. No petechiae. No prolonged or excessive bleeding. No palpable lymph nodes. PHYSICAL EXAMINATION: GENERAL: The patient is awake, alert and oriented, sitting in chair in no distress. VITAL SIGNS: Temperature 97.6 F, Pulse 60, Respiratory Rate 20, BP 163/71, Pulse Ox 97% HEENT: Head normocephalic, atraumatic. Eyes: Extraocular muscles are intact. Pupils are equal, round and reactive to light and accommodation. Ears: No lesions. Nose appeared normal. Throat: No exudate or erythema. Color is better. NECK: Supple. No JVD, no carotid bruit. No lymphadenopathy or thyromegaly. LUNGS: Good air entry. Practically no wheeze. Percussion note normal. Chest symmetrical. HEART: S1, S2, no S3. No murmurs. No cyanosis or clubbing. No ascites. Pulses: Dorsalis pedis and posterior tibial pulses +1 to +2 both sides. ABDOMEN: Soft. Non-tender. Bowel sounds active. No CVA tenderness. No mass felt. EXTREMITIES: No edema. Full range of motion of all extremities, equal. NEUROLOGIC: No focal deficit. Cranial nerves II through XII are grossly intact. No headache, no double vision or headache. SKIN: Not dry. Intact. Turgor-normal. LYMPHATIC: No palpable lymph nodes/no lymphedema. MUSCULOSKELETAL: Normal joints with no swelling. Muscle tone is normal. ASSESSMENT: 1. Bilateral pneumonia per CT scan 2. Acute respiratory failure 3. Atrial fibrillation 4. Anemia. 5. Left hip repair recently. 6. Left ventricular failure. 7. Bronchitis. PLAN: 1. Systolic blood pressure is slightly elevated, will follow. Lanoxin level is normal. 2. Vancomycin added yesterday 3. Will do ABGs in the morning without oxygen 4. Regular diet Plan and coordination of the patient's care discussed in the presence of Integrated Pest Management Technician and nurse. CONDITION: Stable SCRIBED BY: EDWIN EMERSON Operating Room Manager scribed while in presence of service performed by Dr. JIGNA CALIX on 09/19/17 ([id number])
--- NOTE | 2017-09-19 11:17 | RS.PTINEVL ---
Subjective - Patient information Date of Evaluation: 09/19/17 Date of Arrival on Unit: 09/18/17 Admitted From:: In-House Transfer Diagnosis: CHF, pneumonia, respiratory failure Usual Living Arrangement: [facility] Living Arrangement Comments: pt transferred from [facility]. pt had lived alone prior to hip fx. Home Environment: Apartment, Level/No stairs Medical History: Hypertension, COPD, Diabetes, Arthritis Medical History Comments:: GERD, anxiety, afib with RVR, back pain LATEX ALLERGY?: No Surgical History: Hip Replacement Surgical History Comments:: Left hip surgery 08/2017. Medications: see chart Subjective Information/ Patient Comments:: pt states she feels she is getting stronger, has had a set back with pneumonia. Long discussion with patient regarding how she fx hip. pt states she lives alone in apt no steps. pt was independent with ADL's and amb prior to THR. - Level of function Prior to this admission, the patient could do the following:: Independent Selfcare, Independent ADL's, Independent Ambulation Current Level of Function: Partially Dependent Current Equipment Used at Home: did not use AD prior to THR. pt will need BSC, RWX upon dc. Pain Assessement - Location L hip Description: Aching Intensity: 0 Pain Aggravating Factors: Exercise/Activity, Standing, Walking Pain Alleviating Factors: Medication Interventions - Objective Patient Orientation: Person, Place, Time, Situation Current Interventions: IV's, Oxygen, Telemetry Observation: pt with large blister on dorsum of R foot. Ro WADE examined wound. Range of Motion - ROM Right Upper Extremity AROM: WFL's Left Upper Extremity AROM: WFL's Right Lower Extremity AROM: WFL's Left Lower Extremity AROM: Slight limitation (L hip ROM limited due to THR precautions. No flex >90) Muscle Strength - Muscle Strength Right Upper Extremity Strength: Mild Weakness (grossly 4/5,) Left Upper Extremity Strength: Mild Weakness (grossly 4/5) Right Lower Extremity Strength: Mild Weakness (hip flex 4/5, knee flex/ext 4+/ 5. ankle DF/PF 4+/5) Left Lower Extremity Strength: Mild Weakness (L hip not tested due to THR precautions, knee flex/ext 4/5, ankle DF/PF 4/5) Sensation - Sensation Right Upper Extremity Sensation: Intact/Normal Left Upper Extremity Sensation: Intact/Normal Right Lower Extremity Sensation: Impaired Left Lower Extremity Sensation: Impaired Comments: reports n/t occasionally in BLE Palpation Palpation Findings: None/Normal Balance - Sitting Balance and Reactions Static Sitting Balance: Good Dynamic Sitting Balance: Good Sitting Equilibrium Reactions: Delayed Left, Delayed Right Sitting Protective Reactions: Delayed Left, Delayed Right - Standing Balance and Reactions Static Standing Balance: Fair Dynamic Standing Balance: Poor Standing Equilibrium Reactions: Delayed Left, Delayed Right Standing Protective Reactions: Delayed Left, Delayed Right - Comments Balance Assessment Comments: Tinetti score: 15/28 Functional Mobility - Bed Mobility Rolling R/L: Independent Scooting: Independent Supine to Sit: CGA Sit to Supine: CGA - Transfers Sit to Stand: CGA Stand to Sit: CGA - Safety Awareness Safety Awareness: Good Ambulation - Ambulation Assistive Device Used: Rolling Walker Orthotic/Prosthetic Device: No Distance: 120ft Assistance needed with Ambulation: [facility] Gait Deviations: Forward posture, Short stride Ambulation Comments: pt amb with flexed posture, decreased step length, pt does tend to turn L foot inward but pt can correct. pt amb with slow jose g. Factors Affecting Ambulation: Decreased Balance, Breathing/O2 Saturation, Pain, Weakness, Decreased Coordination, Decreased Safety, Limited Endurance Treatment time - Time with patient Total treatment time: 45 Patient Education - Education Patient Education: Education of diagnosis, Home Safety, Education of Plan of Care Teaching Recipient: Patient Teaching Methods: Discussion, Demonstration (Discussion with patient regarding POC as well as THR precautions) Assessment - Assessment Problem List:: Decreased level of function, Requires training/education, Decreased safety/Risk of falls, Weakness, Pain limits previous level of function Rehab Potential: Good Further Therapy Indicated?: Yes Short Term Goals GOAL #1: pt transfer sup to/from sit SBA, sit to/from stand CGA Goal to be met by: 09/24/17 Progress towards Goal:: Met GOAL #2: pt amb with rwx 150ft with CGAx1 with improved posture and step length Goal to be met by: 09/26/17 Progress towards Goal:: Met GOAL #3: pt with improved strength BLE 4 to 4+/5 Goal to be met by: 09/26/17 Lead Business Systems Analyst Goals GOAL #1: pt transfer sup to/from sit to/from stand independently Goal to be met by: 10/03/17 GOAL #2: pt amb functional distances with rwx with no LOB with supervision Goal to be met by: 10/03/17 GOAL #3: pt with improved dyn stand balance as noted by Tinetti score Goal to be met by: 10/03/17 Plan Plan of Care: Therapeutic EX, Therapeutic Activity, Self-Care/Home Management Modalities: Hot Pack, Cold Pack/Cryotherapy Other:: gait training Frequency of Treatment: 1-2 X day, as tolerated Duration of Treatment: 2 Weeks Anticipated Discharge Destination: Home Has the Physician been added for Co-signature?: Yes
[2017-09-19] MEDS ORDERED: ROCEPHIN ONE (21:21)
[2017-09-19] MEDS: ATIVAN PO SCH (21:32)
[2017-09-19] MEDS: ROCEPHIN 1 GM in SODIUM CHLORIDE 50 ML IV SCH (21:36)
[2017-09-19] MEDS ORDERED: SODIUM CHLORIDE 50 ML IV ONE (21:36)
[2017-09-19] MEDS: ZOCOR PO SCH (21:37)
[2017-09-20] MEDS: HUMULIN R SUBCUT PRN ×5 (00:10→20:54)
[2017-09-20] MEDS: XOPENEX 1.25 MG NEB SCH ×4 (05:15→21:45)
[2017-09-20] MEDS: LASIX IVP SCH (06:08)
[2017-09-20] MEDS: PRILOSEC PO SCH (06:08)
[2017-09-20] MEDS: SOLU-MEDROL 125 MG IVP SCH (06:08)
--- NOTE | 2017-09-20 09:05 | PN ---
DATE OF SERVICE: 09/18/17 SUBJECTIVE: 82 year old white female has severe chronic lung disease. The patient had surgery on the left hip after that she ended up on the ventilator. The patient this time was also in acute respiratory failure which practically had resolved but now she seems to have mild wheeze on both lungs on auscultation. The patient is encouraged to be up and about. PLAN: 1. Will be continued on steroids, antibiotics and NEBS treatment 2. There is no evidence of CHF PROGNOSIS: Guarded The patient was seen and examined with Nurse Practitioner. TIME SPENT: More than 30 minutes. Plan and coordination of the patient's care discussed in the presence of nurse. EB
[2017-09-20] MEDS: LANOXIN PO SCH (09:18)
[2017-09-20] MEDS: BENICAR PO SCH (09:18)
[2017-09-20] MEDS: ASPIRIN EC PO SCH (09:18)
[2017-09-20] MEDS: FERROUS SULFATE PO SCH (09:18)
[2017-09-20] MEDS: PRADAXA PO SCH ×2 (09:20→20:54)
[2017-09-20] MEDS: MULTIVITAMIN TABLET PO SCH (09:21)
[2017-09-20] MEDS: CARDIZEM CD PO SCH (09:21)
[2017-09-20] MEDS: GLUCOPHAGE PO SCH ×2 (09:21→16:30)
[2017-09-20] MEDS: BACTROBAN TP SCH ×2 (09:22→20:54)
[2017-09-20] MEDS: TOPROL XL PO SCH (09:23)
[2017-09-20] MEDS: NEURONTIN PO SCH ×3 (09:23→20:54)
[2017-09-20] MEDS: COZAAR PO SCH (09:23)
[2017-09-20] MEDS: VANCOMYCIN 1 GM in SODIUM CHLORIDE 250 ML IV SCH (09:24)
--- NOTE | 2017-09-20 09:29 | PCM.PROG ---
Attending Provider: ATTENDING PROVIDER: Dr. JIGNA CALIX This patient is seen with Araceli Montgomery, Nurse Practitioner. DATE OF SERVICE: 09/20/17 SUBJECTIVE: This 82 year old WHITE/ F was hospitalized 09/18/17. The patient is sitting up in chair. Breathing is much better. REVIEW OF SYSTEMS: CONSTITUTIONAL: Weakness. No night sweats. No fever or chills. HEENT: Eyes: No visual changes. No eye pain. No eye discharge. ENT: No runny nose. No epistaxis. No sinus pain. No odynophagia. No congestion. RESPIRATORY: Cough and congestion. No hemoptysis. No shortness of breath. CARDIOVASCULAR: No angina symptoms. No CHF symptoms. No atypical chest pain for CAD. No palpitations. No orthopnea.. GASTROINTESTINAL: No abdominal pain. No nausea or vomiting. No diarrhea or constipation. No hematemesis. No hematochezia. GENITOURINARY: No urgency. No frequency. No dysuria. No hematuria. No obstructive symptoms. No discharge. No pain. No significant abnormal bleeding. MUSCULOSKELETAL: Left leg pain. NEUROLOGICAL: Awake, alert, oriented to time, place and person. No headache. No neck pain. No syncope. No seizures. No dizziness. PSYCHIATRIC: Not anxious. No depression. No suicidal thoughts. No homicidal thoughts. SKIN: No rash. Blister on right foot. ENDOCRINE: No unexplained weight loss. No weight gain. HEMATOLOGIC/LYMPHATIC: No anemia. No purpura. No petechiae. No prolonged or excessive bleeding. No palpable lymph nodes. PHYSICAL EXAMINATION: GENERAL: The patient is awake, alert and oriented, sitting in chair in no distress. VITAL SIGNS: Temperature 97.0 F, Pulse 58, Respiratory Rate 24, BP 168/62, Pulse Ox 96% HEENT: Head normocephalic, atraumatic. Eyes: Extraocular muscles are intact. Pupils are equal, round and reactive to light and accommodation. Ears: No lesions. Nose appeared normal. Throat: No exudate or erythema. NECK: Supple. No JVD, no carotid bruit. No lymphadenopathy or thyromegaly. LUNGS: Diminished breath sounds bilaterally. Clear to auscultation. Percussion note normal. Chest symmetrical. HEART: Irregular heart rate. S1, S2, no S3. No murmurs. No cyanosis or clubbing. No ascites. Pulses: Dorsalis pedis and posterior tibial pulses +1 to +2 both sides. ABDOMEN: Soft. Non-tender. Bowel sounds active. No CVA tenderness. No mass felt. EXTREMITIES: Trace edema. Full range of motion of all extremities, equal. NEUROLOGIC: No focal deficit. Cranial nerves II through XII are grossly intact. No headache, no double vision or headache. SKIN: Warm and dry. 2" diameter blister with clear drainage dorsal aspect of right foot. Turgor-normal. LYMPHATIC: No palpable lymph nodes/no lymphedema. MUSCULOSKELETAL: Normal joints with no swelling. Muscle tone is normal. ASSESSMENT: 1. Bilateral pneumonia per CT scan 2. Acute respiratory failure 3. Atrial fibrillation 4. Anemia. 5. Left hip repair recently. 6. Left ventricular failure. 7. Bronchitis. 8. Blister right foot due to leg edema PLAN: 1. Keep legs elevated 2. Bactroban to open area on blister 3. Decrease Solu-Medrol 100 mg b.i.d. Plan and coordination of the patient's care discussed in the presence of Strip Tank Tender and nurse. CONDITION: Stable SCRIBED BY: EDWIN EMERSON Flute Grinder scribed while in presence of service performed by Dr. Calix/Araceli Montgomery APRN on 09/20/17 ([id number])
[2017-09-20] MEDS: ROCEPHIN 1 GM in SODIUM CHLORIDE 50 ML IV SCH (20:53)
[2017-09-20] MEDS: ZOCOR PO SCH (20:54)
[2017-09-20] MEDS ORDERED: SOLU-MEDROL 125 MG IVP SCH (21:00)
[2017-09-20] MEDS: ATIVAN PO SCH (21:03)
[2017-09-21] MEDS: XOPENEX 1.25 MG NEB SCH ×4 (05:08→23:33)
[2017-09-21] MEDS: HUMULIN R SUBCUT PRN ×4 (05:39→20:42)
[2017-09-21] MEDS: PRILOSEC PO SCH (05:39)
[2017-09-21] MEDS: LASIX IVP SCH (05:39)
[2017-09-21] MEDS ORDERED: LASIX TAB PO STA (08:04)
[2017-09-21] MEDS: VANCOMYCIN 1 GM in SODIUM CHLORIDE 250 ML IV SCH (08:42)
[2017-09-21] MEDS: BACTROBAN TP SCH ×2 (08:44→20:41)
[2017-09-21] MEDS: TOPROL XL PO SCH (08:44)
[2017-09-21] MEDS: BENICAR PO SCH (08:45)
[2017-09-21] MEDS: CARDIZEM CD PO SCH (08:45)
[2017-09-21] MEDS: LANOXIN PO SCH (08:45)
[2017-09-21] MEDS: MULTIVITAMIN TABLET PO SCH (08:45)
[2017-09-21] MEDS: FERROUS SULFATE PO SCH (08:47)
[2017-09-21] MEDS: GLUCOPHAGE PO SCH ×2 (08:47→18:07)
[2017-09-21] MEDS: COZAAR PO SCH (08:47)
[2017-09-21] MEDS: NEURONTIN PO SCH ×3 (08:47→20:41)
[2017-09-21] MEDS: ASPIRIN EC PO SCH (08:47)
[2017-09-21] MEDS: PRADAXA PO SCH ×2 (08:48→20:41)
[2017-09-21] MEDS: PREDNISONE PO SCH (08:48)
[2017-09-21] MEDS ORDERED: NEOSPORIN OINT 0.9 GM PACKET TP SCH (09:00)
[2017-09-21] MEDS ORDERED: CATAPRES PO SCH (09:00)
--- NOTE | 2017-09-21 10:10 | PCM.PROG ---
Attending Provider: ATTENDING PROVIDER: Dr. JIGNA CALIX This patient is seen with Araceli Montgomery, Nurse Practitioner. DATE OF SERVICE: 09/21/17 SUBJECTIVE: This 82 year old WHITE/ F was hospitalized 09/18/17. The patient is sitting in chair, alert. Breathing has improved, weakness has improved. REVIEW OF SYSTEMS: CONSTITUTIONAL: Weakness and fatigue. No night sweats. No fever or chills. HEENT: Eyes: No visual changes. No eye pain. No eye discharge. ENT: No runny nose. No epistaxis. No sinus pain. No odynophagia. No congestion. RESPIRATORY: No cough, no congestion. No hemoptysis. No shortness of breath. CARDIOVASCULAR: Irregular heart rate. No angina symptoms. No CHF symptoms. No atypical chest pain for CAD. No palpitations. No orthopnea.. GASTROINTESTINAL: No abdominal pain. No nausea or vomiting. No diarrhea or constipation. No hematemesis. No hematochezia. GENITOURINARY: No urgency. No frequency. No dysuria. No hematuria. No obstructive symptoms. No discharge. No pain. No significant abnormal bleeding. MUSCULOSKELETAL: No musculoskeletal pain; no joint swelling. NEUROLOGICAL: Awake, alert, oriented to time, place and person. No headache. No neck pain. No syncope. No seizures. No dizziness. PSYCHIATRIC: Not anxious. No depression. No suicidal thoughts. No homicidal thoughts. SKIN: No rash. No lesions. Blister dorsum of foot. ENDOCRINE: No unexplained weight loss. No weight gain. HEMATOLOGIC/LYMPHATIC: No anemia. No purpura. No petechiae. No prolonged or excessive bleeding. No palpable lymph nodes. PHYSICAL EXAMINATION: GENERAL: The patient is awake, alert and oriented, sitting in chair in no distress. VITAL SIGNS: Temperature 97.8 F, Pulse 64, Respiratory Rate 20, BP 176/60, Pulse Ox 90% HEENT: Head normocephalic, atraumatic. Eyes: Extraocular muscles are intact. Pupils are equal, round and reactive to light and accommodation. Ears: No lesions. Nose appeared normal. Throat: No exudate or erythema. NECK: Supple. No JVD, no carotid bruit. No lymphadenopathy or thyromegaly. LUNGS: Clear to auscultation. Percussion note normal. Chest symmetrical. HEART: S1, S2, no S3. No murmurs. No cyanosis or clubbing. No ascites. Pulses: Dorsalis pedis and posterior tibial pulses +1 to +2 both sides. ABDOMEN: Soft. Non-tender. Bowel sounds active. No CVA tenderness. No mass felt. EXTREMITIES: Trace pitting edema. Full range of motion of all extremities, equal. NEUROLOGIC: No focal deficit. Cranial nerves II through XII are grossly intact. No headache, no double vision or headache. SKIN: Warm and dry. Intact. Turgor-normal. Blister dorsal aspect right foot. No sign of infection 2" diameter. LYMPHATIC: No palpable lymph nodes/no lymphedema. MUSCULOSKELETAL: Normal joints with no swelling. Muscle tone is normal. LAB REVIEW: 09/21/17 04:30 09/21/17 04:30 09/21/17 04:30: Sodium 140, Potassium 4.0, Chloride 97 L, Carbon Dioxide 34 H, Anion Gap 13.0, BUN 44 H, Creatinine 1.35 H, Estimated GFR (MDRD) 38.00, BUN/ Creatinine Ratio 32.59, Glucose 199 H, Calcium 8.2, Total Bilirubin 0.5, AST 18 , ALT 20, Alkaline Phosphatase 64, Total Protein 5.7 L, Albumin 2.8 L, Globulin 2.9, Albumin/Globulin Ratio 0.97 09/21/17 04:30: WBC 10.40 H, RBC 3.42 L, Hgb 10.6 L, Hct 32.9 L, MCV 96.2, MCH 31.0, MCHC 32.2, RDW Coeff of James 15.5 H, Plt Count 230, Immature Gran % (Auto) 1.1, Neut % (Auto) 92.2, Lymph % (Auto) 4.0 L, [place] % (Auto) 2.6, Eos % (Auto) 0.0, Baso % (Auto) 0.1, Immature Gran # (Auto) 0.1, Neut # 9.6 H, Lymph # 0.4 L , [place] # 0.3 L, Eos # 0.0, Baso # 0.0 ASSESSMENT: 1. Bilateral pneumonia per CT scan 2. Acute respiratory failure 3. Atrial fibrillation 4. Anemia 5. Left hip repair recently 6. Left ventricular failure 7. Bronchitis 8. Blister right foot due to leg edema PLAN: 1. Prednisone 20 mg daily 2. D/C Solu-Medrol 3. Lasix 40 mg p.o. 4. D/C IV Lasix 5. Clonidine 0.1 mg b.i.d. 6. Elevate legs Plan and coordination of the patient's care discussed in the presence of Student Records Specialist and nurse. CONDITION: Stable SCRIBED BY: EDWIN EMERSON Ultra Sound Technician scribed while in presence of service performed by Dr. Calix/Araceli Montgomery APRN on 09/21/17 ([id number])
[2017-09-21] MEDS ORDERED: LASIX IVP STA (13:26)
--- NOTE | 2017-09-21 15:26 | PN ---
DATE OF SERVICE: 09/20/17 SUBJECTIVE: The patient was seen with the Nurse Practitioner. The patient's respiratory status seems to have improved with aggressive NEBS treatment, steroids and antibiotics. She has been advised to go through pulmonary rehab. CONDITION: Improving. TIME SPENT: More than 30 minutes. Plan and coordination of the patient's care discussed in the presence of nurse. EB
[2017-09-21] MEDS: ZOCOR PO SCH (20:41)
[2017-09-21] MEDS: ROCEPHIN 1 GM in SODIUM CHLORIDE 50 ML IV SCH (20:41)
[2017-09-21] MEDS: NORVASC PO SCH (20:41)
[2017-09-21] MEDS: ATIVAN PO SCH (20:42)
[2017-09-22] MEDS: XOPENEX 1.25 MG NEB SCH ×3 (05:22→16:54)
[2017-09-22] MEDS: PRILOSEC PO SCH (06:05)
[2017-09-22] MEDS ORDERED: PREDNISONE PO SCH (08:00)
[2017-09-22] MEDS: BACTROBAN TP SCH ×2 (09:52→22:01)
[2017-09-22] MEDS: VANCOMYCIN 1 GM in SODIUM CHLORIDE 250 ML IV SCH (09:52)
[2017-09-22] MEDS: ASPIRIN EC PO SCH (09:53)
[2017-09-22] MEDS: PRADAXA PO SCH ×2 (09:53→22:02)
[2017-09-22] MEDS: BENICAR PO SCH (09:54)
[2017-09-22] MEDS: NEURONTIN PO SCH ×3 (09:55→22:02)
[2017-09-22] MEDS: GLUCOPHAGE PO SCH ×2 (09:55→17:44)
[2017-09-22] MEDS: LOPRESSOR PO SCH ×2 (09:55→22:02)
[2017-09-22] MEDS: MULTIVITAMIN TABLET PO SCH (09:55)
[2017-09-22] MEDS: NORVASC PO SCH ×2 (09:56→22:02)
[2017-09-22] MEDS: PREDNISONE PO SCH (09:56)
[2017-09-22] MEDS: FERROUS SULFATE PO SCH (09:57)
[2017-09-22] MEDS: HUMULIN R SUBCUT PRN ×3 (12:19→22:03)
[2017-09-22] MEDS: ROCEPHIN 1 GM in SODIUM CHLORIDE 50 ML IV SCH (22:01)
[2017-09-22] MEDS: ATIVAN PO SCH (22:02)
[2017-09-22] MEDS: ZOCOR PO SCH (22:03)
[2017-09-23] MEDS: XOPENEX 1.25 MG NEB SCH ×5 (00:06→23:12)
[2017-09-23] MEDS: PRILOSEC PO SCH (05:58)
[2017-09-23] MEDS: LASIX TAB PO SCH (06:04)
[2017-09-23] MEDS: BACTROBAN TP SCH ×2 (09:49→21:00)
[2017-09-23] MEDS: ASPIRIN EC PO SCH (09:49)
[2017-09-23] MEDS: PREDNISONE PO SCH (09:49)
[2017-09-23] MEDS: GLUCOPHAGE PO SCH ×2 (09:49→16:32)
[2017-09-23] MEDS: LOPRESSOR PO SCH ×2 (09:49→20:58)
[2017-09-23] MEDS: MULTIVITAMIN TABLET PO SCH (09:49)
[2017-09-23] MEDS: FERROUS SULFATE PO SCH (09:49)
[2017-09-23] MEDS: BENICAR PO SCH (09:50)
[2017-09-23] MEDS: NEURONTIN PO SCH ×3 (09:50→21:06)
[2017-09-23] MEDS: NORVASC PO SCH ×2 (09:50→21:06)
[2017-09-23] MEDS: PRADAXA PO SCH ×2 (09:50→21:05)
[2017-09-23] MEDS: VANCOMYCIN 1 GM in SODIUM CHLORIDE 250 ML IV SCH (09:53)
[2017-09-23] MEDS: VANCOMYCIN 750 MG in SODIUM CHLORIDE 250 ML IV SCH (11:18)
[2017-09-23] MEDS: HUMULIN R SUBCUT PRN ×3 (13:24→20:58)
[2017-09-23] MEDS: ROCEPHIN 1 GM in SODIUM CHLORIDE 50 ML IV SCH (21:01)
[2017-09-23] MEDS: ZOCOR PO SCH (21:06)
[2017-09-23] MEDS: ATIVAN PO SCH (21:06)
[2017-09-24] MEDS: XOPENEX 1.25 MG NEB SCH ×4 (05:06→22:43)
[2017-09-24] MEDS: LASIX TAB PO SCH (06:04)
[2017-09-24] MEDS: PRILOSEC PO SCH (06:04)
[2017-09-24] MEDS: MULTIVITAMIN TABLET PO SCH (08:07)
[2017-09-24] MEDS: GLUCOPHAGE PO SCH ×2 (08:07→17:36)
[2017-09-24] MEDS: BENICAR PO SCH (08:07)
[2017-09-24] MEDS: NEURONTIN PO SCH ×3 (08:07→20:29)
[2017-09-24] MEDS: FERROUS SULFATE PO SCH (08:07)
[2017-09-24] MEDS: ASPIRIN EC PO SCH (08:07)
[2017-09-24] MEDS: VANCOMYCIN 750 MG in SODIUM CHLORIDE 250 ML IV SCH ×2 (08:08→12:18)
[2017-09-24] MEDS: PRADAXA PO SCH ×2 (08:08→20:29)
[2017-09-24] MEDS: BACTROBAN TP SCH ×2 (08:08→20:30)
[2017-09-24] MEDS: LOPRESSOR PO SCH ×2 (08:08→20:28)
[2017-09-24] MEDS: PREDNISONE PO SCH (08:08)
[2017-09-24] MEDS: NORVASC PO SCH ×2 (08:08→20:29)
--- NOTE | 2017-09-24 09:35 | DI ---
EXAM: PA and lateral views of the chest HISTORY: Cough and shortness of breath COMPARISON: Chest x-ray 09/17/2017 and multiple priors including CT chest 09/17/2017 FINDINGS: The cardiomediastinal silhouette is unchanged with atherosclerotic disease of the aortic a rch. The lungs are hyperinflated with flattening of the diaphragm. There is no pneumothorax or pleu ral effusion. There is no consolidation, nodule or mass. There is persistent patchy ground-glass op acities. The osseous structures demonstrate multilevel degenerative disease. IMPRESSION: 1. Unchanged patchy ground-glass opacities suggestive of pain inflammation/infection. 2. Mild hyperinflation.
--- NOTE | 2017-09-24 11:17 | PCM.PROG ---
Attending Provider: ATTENDING PROVIDER: Dr. JIGNA CALIX This patient is seen with Araceli Montgomery, Nurse Practitioner. DATE OF SERVICE: 09/24/17 SUBJECTIVE: This 82 year old WHITE/ F was hospitalized 09/18/17. The patient is lying in bed, alert. The patient has been up and about with walker. Breathing improved, strength improved. REVIEW OF SYSTEMS: CONSTITUTIONAL: Positive for weakness. No night sweats. No malaise, lethargy. No fever or chills. HEENT: Eyes: No visual changes. No eye pain. No eye discharge. ENT: No runny nose. No epistaxis. No sinus pain. No odynophagia. No congestion. RESPIRATORY: No cough, no congestion. No hemoptysis. No shortness of breath. CARDIOVASCULAR: No angina symptoms. No CHF symptoms. No atypical chest pain for CAD. No palpitations. No orthopnea.. GASTROINTESTINAL: No abdominal pain. No nausea or vomiting. No diarrhea or constipation. No hematemesis. No hematochezia. GENITOURINARY: No urgency. No frequency. No dysuria. No hematuria. No obstructive symptoms. No discharge. No pain. No significant abnormal bleeding. MUSCULOSKELETAL: Left leg pain. NEUROLOGICAL: Awake, alert, oriented to time, place and person. No headache. No neck pain. No syncope. No seizures. No dizziness. PSYCHIATRIC: Not anxious. No depression. No suicidal thoughts. No homicidal thoughts. SKIN: No rash. Blister right foot. ENDOCRINE: No unexplained weight loss. No weight gain. HEMATOLOGIC/LYMPHATIC: No anemia. No purpura. No petechiae. No prolonged or excessive bleeding. No palpable lymph nodes. PHYSICAL EXAMINATION: GENERAL: The patient is awake, alert and oriented, lying in bed in no distress. VITAL SIGNS: Temperature 97.6 F, Pulse 90, Respiratory Rate 20, BP 164/70, Pulse Ox 97% HEENT: Head normocephalic, atraumatic. Eyes: Extraocular muscles are intact. Pupils are equal, round and reactive to light and accommodation. Ears: No lesions. Nose appeared normal. Throat: No exudate or erythema. NECK: Supple. No JVD, no carotid bruit. No lymphadenopathy or thyromegaly. LUNGS: Diminished breath sounds bilaterally. Clear to auscultation. Percussion note normal. Chest symmetrical. HEART: Irregular heart rate. S1, S2, no S3. No murmurs. No cyanosis or clubbing. No ascites. Pulses: Dorsalis pedis and posterior tibial pulses +1 to +2 both sides. ABDOMEN: Soft. Non-tender. Bowel sounds active. No CVA tenderness. No mass felt. EXTREMITIES: No edema. Full range of motion of all extremities, equal. NEUROLOGIC: No focal deficit. Cranial nerves II through XII are grossly intact. No headache, no double vision or headache. SKIN: Warm and dry. Intact. Turgor-normal. Blister right foot, 2" open, no sign of infection. LYMPHATIC: No palpable lymph nodes/no lymphedema. MUSCULOSKELETAL: Normal joints with no swelling. Muscle tone is normal. LAB REVIEW: 09/24/17 04:00 09/24/17 04:00 09/24/17 04:00: Sodium 145, Potassium 3.5, Chloride 101, Carbon Dioxide 35 H, Anion Gap 12.5, BUN 32 H, Creatinine 1.03, Estimated GFR (MDRD) 52.00, BUN/ Creatinine Ratio 31.06, Glucose 107, Calcium 8.3, Total Bilirubin 0.7, AST 27, ALT 19, Alkaline Phosphatase 59, Total Protein 5.6 L, Albumin 2.7 L, Globulin 2.9, Albumin/Globulin Ratio 0.93 09/24/17 04:00: WBC 11.68 H, RBC 3.31 L, Hgb 10.4 L, Hct 32.1 L, MCV 97.0, MCH 31.4 H, MCHC 32.4, RDW Coeff of James 15.6 H, Plt Count 186, Immature Gran % (Auto ) 0.9, Neut % (Auto) 81.1, Lymph % (Auto) 8.7 L, [place] % (Auto) 8.8, Eos % (Auto ) 0.3, Baso % (Auto) 0.2, Immature Gran # (Auto) 0.1, Neut # 9.5 H, Lymph # 1.0 , [place] # 1.0, Eos # 0.0, Baso # 0.0 09/23/17 08:50: Vancomycin Trough 18.82 ASSESSMENT: 1. Bilateral pneumonia per CT scan 2. Acute respiratory failure 3. Atrial fibrillation 4. Anemia 5. Left hip repair recently 6. Left ventricular failure 7. Bronchitis 8. Blister right foot due to leg edema PLAN: 1. Anticipate discharge home 2. Keflex 500 mg t.i.d. times 5 days 3. Prednisone 10 mg daily for 5 days 4. Continue Bactroban b.i.d. to blister 5. The patient has 02 at home. 6. Home Health for nursing assessment, PT/OT. 7. The patient would benefit from a rolling walker at home for ambulation. 7. Repeat chest x-ray before discharge Plan and coordination of the patient's care discussed in the presence of Supervisor Post Wave and nurse. CONDITION: Stable SCRIBED BY: EDWIN EMERSON Health Spa Manager scribed while in presence of service performed by Dr. Calix/Araceli Montgomery APRN on 09/24/17 ([id number])
[2017-09-24] MEDS: HUMULIN R SUBCUT PRN ×2 (12:28→20:28)
[2017-09-24] MEDS: KEFLEX PO SCH ×2 (15:52→20:28)
[2017-09-24] MEDS: ATIVAN PO SCH (20:29)
[2017-09-24] MEDS: ZOCOR PO SCH (20:29)
[2017-09-25] MEDS: XOPENEX 1.25 MG NEB SCH ×2 (04:46→11:20)
[2017-09-25 05:22] VITALS: BP 167/82; TEMP 98
[2017-09-25] MEDS: PRILOSEC PO SCH (05:44)
[2017-09-25] MEDS: LASIX TAB PO SCH (05:44)
[2017-09-25] MEDS: KEFLEX PO SCH ×2 (05:44→12:46)
[2017-09-25] MEDS: PRADAXA PO SCH (08:29)
[2017-09-25] MEDS: BENICAR PO SCH (08:30)
[2017-09-25] MEDS: FERROUS SULFATE PO SCH (08:30)
[2017-09-25] MEDS: ASPIRIN EC PO SCH (08:30)
[2017-09-25] MEDS: GLUCOPHAGE PO SCH (08:30)
[2017-09-25] MEDS: PREDNISONE PO SCH (08:30)
[2017-09-25] MEDS: LOPRESSOR PO SCH (08:30)
[2017-09-25] MEDS: NORVASC PO SCH (08:30)
[2017-09-25] MEDS: NEURONTIN PO SCH (08:30)
[2017-09-25] MEDS: BACTROBAN TP SCH (08:31)
[2017-09-25] MEDS: MULTIVITAMIN TABLET PO SCH (08:32)
[2017-09-25] MEDS ORDERED: DECADRON 4 MG/ML SDV IM STA (08:53)
[2017-09-25] MEDS ORDERED: DECADRON 4 MG/ML SDV ONE (09:23)
--- NOTE | 2017-09-25 10:13 | PCM.PROG ---
Attending Provider: ATTENDING PROVIDER: Dr. JIGNA CALIX This patient is seen with Araceli Montgomery, Nurse Practitioner. DATE OF SERVICE: 09/25/17 SUBJECTIVE: This 82 year old WHITE/ F was hospitalized 09/18/17. The patient is sitting in the chair, alert. The patient states she is ready to go home. The patient will need PT/OT, Home Health nursing at home. Due to worsening of lung disease, will need oxygen continuously as well as nebulizer machine at home. Prescription for Albuterol and Pulmicort will be given. The patient is to use a walker at all times. Fall precautions discussed. REVIEW OF SYSTEMS: CONSTITUTIONAL: Weakness. No night sweats. No malaise, lethargy. No fever or chills. HEENT: Eyes: No visual changes. No eye pain. No eye discharge. ENT: No runny nose. No epistaxis. No sinus pain. No odynophagia. No congestion. RESPIRATORY: No cough, no congestion. No hemoptysis. Shortness of breath. CARDIOVASCULAR: No angina symptoms. No CHF symptoms. No atypical chest pain for CAD. No palpitations. No orthopnea.. GASTROINTESTINAL: No abdominal pain. No nausea or vomiting. No diarrhea or constipation. No hematemesis. No hematochezia. GENITOURINARY: No urgency. No frequency. No dysuria. No hematuria. No obstructive symptoms. No discharge. No pain. No significant abnormal bleeding. MUSCULOSKELETAL: No musculoskeletal pain; no joint swelling. NEUROLOGICAL: Awake, alert, oriented to time, place and person. No headache. No neck pain. No syncope. No seizures. No dizziness. PSYCHIATRIC: Not anxious. No depression. No suicidal thoughts. No homicidal thoughts. SKIN: No rash. No lesions. Blister right foot. ENDOCRINE: No unexplained weight loss. No weight gain. HEMATOLOGIC/LYMPHATIC: No anemia. No purpura. No petechiae. No prolonged or excessive bleeding. No palpable lymph nodes. PHYSICAL EXAMINATION: GENERAL: The patient is awake, alert and oriented, sitting in chair in no distress. VITAL SIGNS: Temperature 98.0 F, Pulse 86, Respiratory Rate 18, BP 167/82, Pulse Ox 94% HEENT: Head normocephalic, atraumatic. Eyes: Extraocular muscles are intact. Pupils are equal, round and reactive to light and accommodation. Ears: No lesions. Nose appeared normal. Throat: No exudate or erythema. NECK: Supple. No JVD, no carotid bruit. No lymphadenopathy or thyromegaly. LUNGS: Diminished breath sounds bilaterally. Clear to auscultation. Percussion note normal. Chest symmetrical. HEART: Irregular heart rate. S1, S2, no S3. No murmurs. No cyanosis or clubbing. No ascites. Pulses: Dorsalis pedis and posterior tibial pulses +1 to +2 both sides. ABDOMEN: Soft. Non-tender. Bowel sounds active. No CVA tenderness. No mass felt. EXTREMITIES: No edema. Full range of motion of all extremities, equal. NEUROLOGIC: No focal deficit. Cranial nerves II through XII are grossly intact. No headache, no double vision or headache. SKIN: Warm and dry. Intact. Turgor-normal. 2" open blister, scabbed, right foot. LYMPHATIC: No palpable lymph nodes/no lymphedema. MUSCULOSKELETAL: Normal joints with no swelling. Muscle tone is normal. LAB REVIEW: 09/25/17 04:30 09/25/17 04:30 09/25/17 04:30: Sodium 146 H, Potassium 3.6, Chloride 103, Carbon Dioxide 33 H, Anion Gap 13.6, BUN 28 H, Creatinine 1.00, Estimated GFR (MDRD) 53.00, BUN/ Creatinine Ratio 28.00, Glucose 100, Calcium 8.2, Total Bilirubin 0.7, AST 29, ALT 20, Alkaline Phosphatase 55, Total Protein 5.2 L, Albumin 2.5 L, Globulin 2.7, Albumin/Globulin Ratio 0.93 09/25/17 04:30: WBC 13.81 H, RBC 3.18 L, Hgb 9.7 L, Hct 31.3 L, MCV 98.4, MCH 30.5, MCHC 31.0 L, RDW Coeff of [place] 15.6 H, Plt Count 195, Immature Gran % (Auto ) 0.9, Neut % (Auto) 80.9, Lymph % (Auto) 8.7 L, [place] % (Auto) 7.2, Eos % (Auto ) 2.2, Baso % (Auto) 0.1, Immature Gran # (Auto) 0.1, Neut # 11.2 H, Lymph # 1.2 , [place] # 1.0, Eos # 0.3, Baso # 0.0 ASSESSMENT: 1. Bilateral pneumonia per CT scan, resolving 2. Acute respiratory failure, resolved 3. Atrial fibrillation 4. Anemia 5. Left hip repair recently 6. Left ventricular failure 7. Bronchiolitis 8. Blister right foot due to leg edema PLAN: 1. D/C home 2. Potassium 10 mEq daily 3. Keep legs elevated when resting 4. Will see the patient next week in the office 5. Albuterol t.i.d. 6. Pulmicort b.i.d. 7. 1 cc Decadron 8. Keflex 500 mg t.i.d. times one week 9. Continue Bactroban ointment 10. Prednisone 10 mg daily for 7 days 11. Continue other medications Plan and coordination of the patient's care discussed in the presence of Guest Service Supervisor and nurse. CONDITION: Stable SCRIBED BY: EDWIN EMERSON Patient Care Specialist scribed while in presence of service performed by Dr. Calix/Araceli Montgomery APRN on 09/25/17 ([id number])
--- NOTE | 2017-09-25 10:32 | CM.DICTOOL ---
ADMISSION: 09/18/17 15:10 DISCHARGE: 09/25/17 DATE OF SERVICE: 09/25/17 FINAL DIAGNOSIS BRONCHIOLITIS. IMPORVED CHF. RESOLVED ATRIAL FIBRILLATION, CONTROLLED (PRADAXA) RECENT PARTIAL LEFT HIP ARTHROPLASTY, 08/19 RIGHT FOOT WOUNDS, BLISTERS X2 HYPOKALEMIA, TREATED AND RESOLVED HYPERTENSION COPD (OXYGEN DEPENDENT WITH THIS VISIT) GERD HYPERLIPIDEMIA DM, TYPE 2 ANEMIA FORMER SMOKER LAST 2-D AND M-MODE ECHO COMPLETED AT [facility], 12/18/15 BORDERLINE LEFT VENTRICULAR HYPERTROPHY ENLARGED LEFT ATRIAL CAVITY NORMAL LEFT VENTRICULAR CONTRACTILITY (68%) NORMAL VALVES LAST VITALS Temp Pulse Resp BP Pulse Ox 98.0 F 86 18 167/82 H 94 L 09/25/17 05:22 09/25/17 05:22 09/25/17 05:22 09/25/17 05:22 09/25/17 05:22 ACTIVE HOME MEDICATIONS Acetaminophen/Hydrocodone Bitart ([place] 5-325) 1 tab PO Q4H PRN PRN Reason: moderate pain Aspirin (Aspirin Ec) 81 mg PO DAILYWM [facility] Last Admin: 09/25/17 08:30 Dose: 81 mg Dabigatran (Pradaxa) 150 mg PO Q12HR [facility] Last Admin: 09/25/17 08:29 Dose: 150 mg Ferrous Sulfate (Ferrous Sulfate) 324 mg PO DAILY [facility] Last Admin: 09/25/17 08:30 Dose: 324 mg Furosemide (Lasix Tab) 40 mg PO QDAC [facility] (INCREASED FROM 20 MG PO DAILY) Last Admin: 09/25/17 05:44 Dose: 40 mg Gabapentin (Neurontin) 100 mg PO TID [facility] Last Admin: 09/25/17 08:30 Dose: 100 mg Lorazepam (Ativan) 1 mg PO BEDTIME [facility] Last Admin: 09/24/17 20:29 Dose: 1 mg Metformin HCl (Glucophage) 500 mg PO BIDWM [facility] Last Admin: 09/25/17 08:30 Dose: 500 mg Metoprolol Tartrate (Lopressor) 100 mg PO BID [facility] (CHANGED FROM 200 MG PO DAILY) Last Admin: 09/25/17 08:30 Dose: 100 mg Multivitamins (Multivitamin Tablet) 1 tab PO DAILY [facility] Last Admin: 09/25/17 08:32 Dose: 1 tab Olmesartan (Benicar) 40 mg PO DAILY [facility] Last Admin: 09/25/17 08:30 Dose: 40 mg Omeprazole (Prilosec) 20 mg PO QDAC [facility] Last Admin: 09/25/17 05:44 Dose: 20 mg Simvastatin (Zocor) 10 mg PO BEDTIME [facility] Last Admin: 09/24/17 20:29 Dose: 10 mg ALLERGIES atorvastatin [From Lipitor] Adverse Reaction (Unknown, Verified 12/14/15 11:16) ezetimibe [From Zetia] Adverse Reaction (Unknown, Verified 12/14/15 11:16) glimepiride Adverse Reaction (Unknown, Verified 12/14/15 11:16) rosuvastatin [From Crestor] Adverse Reaction (Unknown, Verified 12/14/15 11:16) simvastatin [From Vytorin] Adverse Reaction (Unknown, Verified 12/14/15 11:16) NEW PRESCRIPTIONS: RESUME YOUR HOME MEDICATIONS PER LIST PROVIDED BY THE NURSING STAFF PLEASE NOTE THE FOLLOWING CHANGES IN YOUR HOME MEDICATIONS: DO NOT TAKE LOSARTAN POTASSIUM (COZAAR) DO NOT TAKE DILTIAZEM HCL (CARDIZEM) DO NOT TAKE DIGOXIN (LANOXIN) DO NOT TAKE METOPROLOL SUCCINATE (TOPROL XL) LASIX HAS BEEN INCREASED TO 40 MG BY MOUTH DAILY NEW PRESCRIPTIONS KEFLEX 500 MG, TAKE ONE CAPSULE BY MOUTH THREE TIMES DAILY FOR 7 DAYS PREDNISONE 10 MG, TAKE ONE TABLET BY MOUTH WITH FOOD DAILY FOR 7 DAYS METOPROLOL TARTRATE (LOPRESSOR) 100 MG, TAKE ONE TABLET BY MOUTH DAILY AMLODIPINE BESYLATE (NORVASC) 5 MG, TAKE ONE TABLET BY MOUTH TWICE DAILY K-TAB 10 MEQ, TAKE ONE TABLET BY MOUTH DAILY PULMICORT INHALER, ADMINISTER ONE PUFF TWICE DAILY ALBUTEROL, ADMINISTER NEBS THREE TIMES DAILY BACTROBAN OINTMENT, APPLY TO BLISTER AREAS TO TOP OF RIGHT FOOT TWICE DAILY ( HOSPITAL SUPPLY) SMOKING: FORMER SMOKER NONE NOW DISEASE SPECIFIC EDUCATION: HOME HEALTH SERVICES TO BE PROVIDED DURABLE MEDICAL EQUIPMENT REQUIRED, ROLLING WALKER, BEDSIDE COMMODE OXYGEN FOR CONTINUOUS USE AND NEBULIZED BREATHING TREATMENTS PNEUMONIA/BRONCHIOLITIS A-FIB 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 USE HOME MEDICATIONS NEW PRESCRIPTIONS WOUND CARE LAB REVIEW: 09/25/17 04:30 09/25/17 04:30 09/25/17 04:30: Sodium 146 H, Potassium 3.6, Chloride 103, Carbon Dioxide 33 H, Anion Gap 13.6, BUN 28 H, Creatinine 1.00, Estimated GFR (MDRD) 53.00, BUN/ Creatinine Ratio 28.00, Glucose 100, Calcium 8.2, Total Bilirubin 0.7, AST 29, ALT 20, Alkaline Phosphatase 55, Total Protein 5.2 L, Albumin 2.5 L, Globulin 2.7, Albumin/Globulin Ratio 0.93 09/25/17 04:30: WBC 13.81 H, RBC 3.18 L, Hgb 9.7 L, Hct 31.3 L, MCV 98.4, MCH 30.5, MCHC 31.0 L, RDW Coeff of James 15.6 H, Plt Count 195, Immature Gran % (Auto ) 0.9, Neut % (Auto) 80.9, Lymph % (Auto) 8.7 L, Lawrence % (Auto) 7.2, Eos % (Auto ) 2.2, Baso % (Auto) 0.1, Immature Gran # (Auto) 0.1, Neut # 11.2 H, Lymph # 1.2 , Lawrence # 1.0, Eos # 0.3, Baso # 0.0 PLAN: DISCHARGE HOME TODAY RETURN TO SEE DR. CALIX ON 10/02/17 10:15 A.M. [facility] WILL PROVIDE NURSING SERVICES FOR GENERAL ASSESSMENT, PAIN MANAGEMENT. [facility] WILL ALSO PROVIDE PT/OT SERVICES IN YOUR HOME SETTING ([phone]) [facility] WILL PROVIDE OXYGEN FOR CONTINUOUS USE WELL EXTENDED TUBING TO EASE MOBILITY IN THE HOME. THEY WILL ALSO PROVIDE A ROLLING WALKER AND BEDSIDE COMMODE. ([phone]). RESUME YOUR HOME MEDICATIONS PER LIST PROVIDED BY THE NURSING STAFF PLEASE NOTE THE FOLLOWING CHANGES IN YOUR HOME MEDICATIONS: DO NOT TAKE LOSARTAN POTASSIUM (COZAAR) DO NOT TAKE DILTIAZEM HCL (CARDIZEM) DO NOT TAKE DIGOXIN (LANOXIN) DO NOT TAKE METOPROLOL SUCCINATE (TOPROL XL) LASIX HAS BEEN INCREASED TO 40 MG BY MOUTH DAILY NEW PRESCRIPTIONS KEFLEX 500 MG, TAKE ONE CAPSULE BY MOUTH THREE TIMES DAILY FOR 7 DAYS PREDNISONE 10 MG, TAKE ONE TABLET BY MOUTH WITH FOOD DAILY FOR 7 DAYS METOPROLOL TARTRATE (LOPRESSOR) 100 MG, TAKE ONE TABLET BY MOUTH DAILY AMLODIPINE BESYLATE (NORVASC) 5 MG, TAKE ONE TABLET BY MOUTH TWICE DAILY K-TAB 10 MEQ, TAKE ONE TABLET BY MOUTH DAILY PULMICORT INHALER, ADMINISTER ONE PUFF TWICE DAILY ALBUTEROL, ADMINISTER NEBS THREE TIMES DAILY BACTROBAN (HOSPITAL SUPPLY) ONE APPLICATION TO RIGHT FOOT DORSUM TWICE DAILY ACTIVITY: PER PHYSICAL THERAPY AND YOUR ORTHOPEDIC SURGEON DIET HEALTHY HEART SUMMARY THE PATIENT IS ALERT AND ORIENTED X3. SHE IS FORGETFUL OCCASIONALLY BUT IS HIGHLY FUNCTIONAL FOR ADL'S. SHE REQUIRES ASSISTANCE WITH HYGIENE AND AMBULATING DUE TO HER RECENT LEFT HIP SURGERY. SHE WILL REQUIRE A ROLLING WALKER AND BEDSIDE COMMODE AT DISCHARGE. WE HAVE MADE ARRANGEMENTS WITH [facility] FOR CONTINUOUS OXYGEN THE PATIENT WILL REQUIRE THIS NOW. SHE WILL ALSO HAVE NEBULIZED BREATHING TREATMENTS. [facility] WILL PROVIDE DME INCLUDING THE OXYGEN, NEBULIZER, ROLLING WALKER AND BEDSIDE COMMODE. MS. BAINS WILL BENEFIT FROM HOME HEALTH SERVICES AFTER DISCHARGE. SHE WILL REQUIRE NURSING SERVICES FOR GENERALIZED ASSESSMENT AND MEDICATION MANAGEMENT/COMPLIANCE DUE TO THE MULTIPLE MEDICATION CHANGES MADE DURING THIS STAY. SHE WILL BENEFIT FROM CONTINUED PT/OT IN HER HOME ENVIRONMENT. [facility] WILL PROVIDE THESE SERVICES. THESE COMPANIES HAVE BEEN REQUESTED BY PATIENT/ DAUGHTER CHOICE. THE SKIN TURGOR IS GOOD AND WITHOUT DECUBITUS ULCERS. MS. BAINS'S SURGICAL INCISION LOCATED ON THE LEFT BUTTOCK IS VERY WELL HEALED AND IS DRY. THERE IS NO SWELLING OR REDNESS/WARMTH AT THE SITE. SHE HAS A 2 INCH BLISTER AREA TO THE DORSUM OF HER RIGHT FOOT AND A 1/2 INCH BLISTER AREA JUST ABOVE THIS AND TO THE RIGHT. BOTH BLISTERS HAVE OPENED AND ARE FLUID FREE. WE HAVE BEEN APPLYING BACTROBAN TO BOTH. THE PATIENT WILL CONTINUE THIS TREATMENT AT HOME. HYDRATION AND NUTRITIONAL STATUS ARE GOOD. THE PATIENT HAS SHOWN POSITIVE CLINICAL IMPROVEMENT DURING HER STAY. SHE HAS MET ALL HER SHORT TERM AND CORRECTION GOALS MADE BY PHYSICAL THERAPY. SHE IS ABLE TO USE THE ROLLING WALKER SAFELY. SHE WILL BENEFIT FROM PT/OT IN HER HOME ENVIRONMENT SO THAT SHE CAN LEARN TO SAFELY MANUVER AROUND IN EACH ROOM WHILE USING ENERGY CONSERVATION MEASURES. WE WILL FOLLOW HER IN THE OFFICE NEXT WEEK. MS. BAINS AND HER DAUGHTERS ARE AWARE AND AGREEABLE FOR TODAY'S DISCHARGE PLANS. AT HER REQUEST, SHE WILL BE TRANSPORTED TO HER HOME VIA "[facility] " TRANSPORTATION SYSTEM. HER DAUGHTERS WILL STAY WITH HER UNTIL THEY FEEL SHE IS ABLE TO PROVIDE SELF CARE. CURRENT CODE STATUS DO NOT RESUSCITATE JEANETTE QUIROGA APRN JIGNA CALIX M.D.
[2017-09-25] MEDS: HUMULIN R SUBCUT PRN (11:12)
--- NOTE | 2017-09-25 13:25 | RS.OTQKDC ---
OT Discharge Date of Discharge: 09/25/17 Reason for Discharge: Pt discharged to home with home health and daughter to help her.
--- NOTE | 2017-09-26 11:56 | DS ---
DATE OF SERVICE: 09/25/16 FINAL DIAGNOSIS: 1. Bronchiolitis, improved 2. CHF, resolved 3. Atrial fibrillation, controlled (Pradaxa) 4. Recent partial left hip arthroplasty, 08/19 5. Right foot wounds, blisters x2 6. Hypokalemia, treated and resolved 7. Hypertension 8. COPD (oxygen dependent with this visit) 9. GERD 10.Hyperlipidemia 11.Diabetes Mellitus type 2 12.Anemia 13.Former smoker Last 2-D and M- Mode echo completes at [facility], 12/18/15: Borderline left ventricular hypertrophy Enlarged Left atrial cavity Normal left ventricular contractility (68%) Normal valves LAST VITALS: Temperature 98, pulse 86, respiratory rate 18, blood pressure 167/82 and pulse ox 94%. DISCHARGE INSTRUCTIONS: Discharge home today. return to see Dr. Sky on 10/02/17 10:15am. [facility] will provide nursing services for general assessment, pain management. [facility] will also provide PT/OT services in your home setting. [facility] will provide oxygen for continuous use as well as extended tubing to ease mobility in the home. They will also provide a rolling walker and beside commode. MEDICATIONS AT DISCHARGE: [place] 5-325 one tablet PO Q 4 hours PRN Aspirin 81mg PO daily Pradaxa 150mg PO Q 12 hours Ferrous Sulfate 324mg PO daily Lasix 40mg PO QDAC Neurontin 100mg PO three times a day Ativan 1mg Po bedtime Glucophage 500mg PO twice a day Lopressor 100mg PO twice a day Multivitamin tablet one tablet PO daily Benicar 40mg PO daily Prilosec 20mg PO QDAC Zocor 10mg PO bedtime ALLERGIES: Atorvastatin Ezetimibe Glimepiride Rosuvastatin Simvastatin NEW PRESCRIPTIONS: Resume home medications as per list provided by the nursing staff. Please note changes in home medications: DO NOT TAKE LOSARTAN POTASSIUM (COZAAR) DO NOT TAKE DILTIAZEM HCL (CARDIZEM) DO NOT TAKE DIGOXIN (LANOXIN) DO NOT TAKE METOPROLOL SUCCINATE (TOPROL XL) LASIX HAS BEEN INCREASED TO 40MG BY MOUTH DAILY KEFLEX 500MG TAKE ONE CAPSULE BY MOUTH THREE TIMES DAILY FOR 7 DAYS PREDNISONE 10MG TAKE ONE TABLET BY MOUTH WITH FOOD DAILY FOR 7 DAYS METOPROLOL TARTRATE (LOPRESSOR) 100MG, TKAE ONE TABLET BY MOUTH DAILY AMLODIPINE BESYLATE (NORVASC) 5MG, TAKE ONE TABLET BY MOUTH TWICE DAILY K-TAB 10 MEQ TAKE ONE TABLET BY MOUTH DAILY PULMICORT INHALER, ADMINISTER ONE PUFF TWICE DAILY ALBUTEROL, ADMINISTER NEBS THREE TIMES DAILY BACTROBAN OINTMENT, APPLY TO BLISTER AREAS TO TOP OF RIGHT FOOT TWICE DAILY( HOSPITAL SUPPLY) DIET INSTRUCTIONS: Healthy heart ACTIVITY: As per physical therapy and orthopedic surgeon SMOKING: Former Smoker None now DISEASE SPECIFIC EDUCATION: Home health services to be provided Durable medical equipment required, rolling walking, beside commode Oxygen continuous use and nebulized breathing treatments Pneumonia/Bronchiolitis A-Fib Possible adverse effects of ling term steroid use Home medications New prescriptions Wound Care HOSPITAL COURSE: This is a 82 year old white female who had been at [facility] after having a partial left hip replacement. At the hospital she had went into cute respiratory distress and had to be intubated. Her Atrial fibrillation rate became uncontrolled. She has had a history of atrial fibrillation for some time. She was on a ventilatory for about 48 hours and since then has been on oxygen continuously. She had been at [facility] for physical and occupational therapy. While there she developed a low grade fever with shortness of breath with Sats down into the 87-88% on her 2 liters of oxygen. She was taken to the emergency room here [facility] where chest x-ray found bilateral pneumonia. CT scan of the chest showed patchy bilateral infiltrates. She was subsequently admitted. She was negative for the flu. She was placed on IV Rocephin 1 gram daily along with Vancomycin 500mg IV Q 12 hours. Due to her recent respiratory distress syndrome it seems as though she has been slow to recover. She has been unable to be weaned off of her oxygen. She failed her three step oxygen test the other day. She has been doing physical therapy while here in the hospital. She had experienced slight vascular congestion on chest x-ray with plus 1 pitting edema to bilateral lower extremities which resolved with Lasix therapy for which she then developed hypokalemia which resolved with potassium replacement orally. She does have borderline LVH. Again she has been in persistent atrial fibrillation and we have continued her Pradaxa. She has remained in stable condition during her hospital stay. Today on day of discharge her pulse ox is 94% on 2 liters. Blood pressure 160/80, temperature 98, heart rate 86, respiratory 18. The patient is a former smoker and has had some degree of COPD. Again this has been worsened. She now has improved significantly. She has been alert and oriented. Respiratory distress has resolved however she does have some residual cough and shortness of breath and she will go home with home oxygen. She will continue physical therapy at home along with Home Health. Her daughter, she has two daughter which are going to stay with her. She did have some asymptomatic bradycardia on telemetry while she was here with heart rate going down into the 30s. Again she was asymptomatic. Blood pressure remained stable. We did change some of her medications; decreased her Lopressor put her on regular Lopressor 100mg twice a day, discontinued her Cardizem, started her on Norvasc 5mg PO twice a day and increased her Lasix to 40mg daily from 20mg daily. She will also go home on supplemental Potassium 20meq daily. Initially she was not started on any steroids due to her recent hip repair however due to wheezing about 48 hours in she was started on Solu-Medrol 100mg IV Q 12 hours. She has subsequently been weaned from that and has been on 20mg PO daily of Prednisone and has tolerated this well. We will send her home on Prednisone 10mg daily for the next 7 days. In order to complete her course of antibiotic therapy she has been on Rocephin for approximately 10days and we will send her home on Keflex 500mg three times a day for the next 7 days. Again due to residual bronchiolitis and underlined COPD we will continue nebulization treatments along with home oxygen continuously in order for nebulizer machine will be given also to do albuterol treatments three times a day and Pulmicort NEB treatments twice daily. Hgb has been stable from 9.5 to 10.5 while here. She has continued on the Pradaxa. She is on iron 324mg daily. She will continue this. At this point she is able to be up and about with assistance using a rolling walking and can use the bedside commode. She has this at home. Again she will continue PT/OT at home. She remains in good spirits. She has had slow clinical improvement during her stay. She has met her short term and correction goal of physical therapy. We will followup up with her next week in the hospital. She is to return sooner if signs and symptoms worsen. TIME SPENT: More than 60 minutes. DANIELD
--- NOTE | 2017-09-27 11:36 | PN ---
DATE OF SERVICE: 09/21/17 SUBJECTIVE: The patient had bradyarrhythmias with atrial fibrillation. Medication changes have been made. She has been taken off Cardizem and put on Norvasc 5mg twice a day that may help the systolic blood pressure. Continue Clonidine for the time being. Metoprolol should be taken down to 100 twice a day instead of 200mg in the morning. Lanoxin will be discontinued. Her Cozaar will be discontinued and the patient will be kept on Benicar. PHYSICAL EXAMINATION: HEENT: Head normocephalic, atraumatic. Eyes: Extraocular muscles are intact. Pupils are equal, round and reactive to light and accommodation. Ears: No lesions. Nose appeared normal. Throat: No exudate or erythema. NECK: Supple. No JVD, no carotid bruit. No lymphadenopathy or thyromegaly. LUNGS: Decreased breath sounds with more air entry. Percussion note normal. Chest symmetrical. HEART: S1, S2, no S3. No murmurs. No cyanosis or clubbing. No ascites. Pulses: Dorsalis pedis and posterior tibial pulses +1 to +2 both sides. ABDOMEN: Soft. Nontender. Bowel sounds active. No CVA tenderness. No mass felt. EXTREMITIES: Trace to +1 pitting edema. Full range of motion of all extremities , equal. NEUROLOGIC: No focal deficit. Cranial nerves II through XII are grossly intact. No headache, no double vision or headache. SKIN: Not dry. Intact. Turgor - normal. LYMPHATIC: No palpable lymph nodes/no lymphedema. MUSCULOSKELETAL: Normal joints with no swelling. Muscle tone is normal. PLAN: 1. Will given Lasix 40mg today and tomorrow. 2. The patient is advised to be up and about 3. Cardiovascular and respiratory status stable. CONDITION: Stable TIME SPENT: More than 30 minutes. The patient was seen and examined with Nurse Practitioner. Plan and coordination of the patient's care discussed in the presence of nurse. EB
--- NOTE | 2017-09-27 13:05 | PN ---
DATE OF SERVICE: 09/22/17 SUBJECTIVE: 82 year old white female was hospitalized with left hip arthroplasty. The patient's condition seems to have improved as far as her respiratory status is concerned. She has leg edema. Hypertension seems to be on upper limit of normal. Needs to desire better at systolic level. REVIEW OF SYSTEMS: CONSTITUTIONAL: No night sweats. No fatigue, malaise, lethargy. No fever or chills. HEENT: Eyes: No visual changes. No eye pain. No eye discharge. ENT: No runny nose. No epistaxis. No sinus pain. No sore throat. No odynophagia. No congestion. RESPIRATORY: No cough, no congestion. No hemoptysis. No shortness of breath. CARDIOVASCULAR: No angina symptoms. No CHF symptoms. No atypical chest pain for CAD. No palpitations. No orthopnea. GASTROINTESTINAL: No abdominal pain. No nausea or vomiting. No diarrhea or constipation. No hematemesis. No hematochezia. GENITOURINARY: No urgency. No frequency. No dysuria. No hematuria. No obstructive symptoms. No discharge. No pain. No significant abnormal bleeding. MUSCULOSKELETAL: No musculoskeletal pain; no joint swelling. NEUROLOGICAL: No headache. No neck pain. No syncope. No seizures. No dizziness. PSYCHIATRIC: Not anxious. No depression. No suicidal thoughts. No homicidal thoughts. SKIN: No rash. No lesions. No wounds. ENDOCRINE: No unexplained weight loss. No weight gain. HEMATOLOGIC/LYMPHATIC: No anemia. No purpura. No petechiae. No prolonged or excessive bleeding. No palpable lymph nodes. PHYSICAL EXAMINATION: GENERAL: The patient is oriented to time, place and person. VITAL SIGNS: Temperature 97, pulse 60, respiratory rate 16, blood pressure 165/ 72 and pulse ox 96%. HEENT: Head normocephalic, atraumatic. Eyes: Extraocular muscles are intact. Pupils are equal, round and reactive to light and accommodation. Ears: No lesions. Nose appeared normal. Throat: No exudate or erythema. NECK: Supple. No JVD, no carotid bruit. No lymphadenopathy or thyromegaly. LUNGS: Decreased breath sounds but clear to auscultation. Percussion note normal. Chest symmetrical. HEART: S1, S2, no S3. No murmurs. No cyanosis or clubbing. No ascites. Pulses: Dorsalis pedis and posterior tibial pulses +1 to +2 both sides. ABDOMEN: Soft. Nontender. Bowel sounds active. No CVA tenderness. No mass felt. EXTREMITIES: 1+ pitting edema. Full range of motion of all extremities, equal. NEUROLOGIC: No focal deficit. Cranial nerves II through XII are grossly intact. No headache, no double vision or headache. SKIN: Not dry. Intact. Turgor - normal. LYMPHATIC: No palpable lymph nodes/no lymphedema. MUSCULOSKELETAL: Normal joints with no swelling. Muscle tone is normal. LABS: hgb 10.5,k hct 33, WBC 13,000 normal differential, creatinine 1.3, BUN 47 ASSESSMENT: 1. Left hip arthroplasty recovering very well 2. Chronic respiratory failure 3. Chronic obstructive lung disease 4. Severe hypertension 5. Atrial fibrillation with slow ventricular response PLAN: 1. Continue change in the medication that were made yesterday 2. Discontinue Cardizem 3. Continue Norvasc 5mg twice a day 4. Lanoxin was discontinue 5. Today the rate is acceptable 6. Blood pressure is somewhat high, will monitor it. 7. Metoprolol has been broken down to 100mg twice a day 8. Advise the patient to keep the legs up 9. The patient has blister on right foot near the toes which seems to be noninfected, etiology could be chronic leg edema. TIME SPENT: More than 30 minutes. Plan and coordination of the patient's care discussed in the presence of nurse. EB
--- NOTE | 2017-09-27 13:36 | PN ---
DATE OF SERVICE: 09/24/17 SUBJECTIVE: 82 year old white female was seen and examined with the Nurse Practitioner. The patient's condition has remarkably improved. Her cardiovascular and respiratory status is stable. She is walking good with left hip arthroplasty. The patient has severe chronic lung disease discussed about it. Atrial fibrillation now has more ventricular response. The patient's systolic blood pressure still mildly elevated. We may have to increase some of her medication before discharge. The patient will be discharged on Keflex and Prednisone. TIME SPENT: More than 30 minutes. Plan and coordination of the patient's care discussed in the presence of nurse. EB
--- NOTE | 2017-09-27 13:45 | PN ---
DATE OF SERVICE: 09/25/17 SUBJECTIVE: The patient was seen and examined with the Nurse Practitioner. The patient's condition has improved remarkably. Her Cardiovascular and respiratory status is stable. Her blood pressure is 160 on the systolic side. Fibrillation under control. She would be discharged on Metoprolol 100mg twice a day, Amlodipine 5mg twice a day. Continue Benicar 40mg. Adjustment on the blood pressure medication will be made as an outpatient. She may need more medications. Advised to cut down on salt. CONDITION: Stable. TIME SPENT: More than 30 minutes. Plan and coordination of the patient's care discussed in the presence of nurse. EB
== END 2017-09-25 13:03 | disposition home or self-care (01) | DRG 202 ==
LOC: MEDSURG B 15:10
PROVIDERS: ADMIT Internal Medicine; ATTEND Internal Medicine
DX: J21.9 Acute bronchiolitis, unspecified (principal); J96.00 Acute respiratory failure, unspecified whether with hypoxia or hypercapnia; J18.9 Pneumonia, unspecified organism; I50.1 Left ventricular failure, unspecified; I50.9 Heart failure, unspecified; I51.7 Cardiomegaly; I48.91 Unspecified atrial fibrillation; E11.9 Type 2 diabetes mellitus without complications; D64.9 Anemia, unspecified; E87.6 Hypokalemia; R60.0 Localized edema; R23.8 Other skin changes; I10 Essential (primary) hypertension; K21.9 Gastro-esophageal reflux disease without esophagitis; E78.5 Hyperlipidemia, unspecified; Z79.84 Long term (current) use of oral hypoglycemic drugs; Z87.891 Personal history of nicotine dependence; Z96.641 Presence of right artificial hip joint; Z98.890 Other specified postprocedural states
CPT/HCPCS: 36415; 80053; 80202; 82803; 82962; 85025; 94640; 94761; 97802

== ENCOUNTER 2017-10-12 10:28 | Inpatient (IN) | payer OTHER ==
--- NOTE | 2017-10-12 11:35 | DI ---
EXAM: Single frontal view of the chest HISTORY: Shortness of breath. COMPARISON: Chest x-ray 09/24/2017 and multiple priors including CT chest 09/17/2017 FINDINGS: Cardiomediastinal silhouette is unchanged with mild atherosclerotic disease. There is no p neumothorax. There is worsening of the bilateral patchy ground-glass consolidations most pronounced in the right lower lobe. There is minimal blunting the costophrenic angles. The osseous structures are unchanged. IMPRESSION: 1. Worsening patchy lower lobe ground-glass consolidations most pronounced on the right, may represe nt worsening pneumonia versus atelectasis and pulmonary edema. 2. Small pleural effusions versus
[2017-10-12] MEDS ORDERED: SODIUM CHLORIDE 500 ML IV STA ×2 (12:24→15:59)
--- NOTE | 2017-10-12 12:28 | ED.PDOC ---
General ED Provider: Dr. CRUZ VELASCO Chief Complaint: Shortness of Air Stated Complaint: SHORT OF AIR Time Seen by Physician: 10:30 (PT SEEN WITH PA ) Information Source: Patient, Family Exam Limitations: No limitations Primary Care Provider: JIGNA CALIX Nursing and Triage Documentation Reviewed and Agree: Yes Reviewed sepsis parameters & appropriate labs ordered?: Yes (FAMILY WITH PA PRESENT STATED PT IS DNR ) System Inflammatory Response Syndrome: Not Applicable Sepsis Protocol: For patient's 13 years and over: Temp is 96.8 and below OR 101 and greater Pulse >90 BPM Resp >20/minute Acutely Altered Mental Status Are patient's symptoms suggestive of a new infection, such as: -Pneumonia -Skin, Soft Tissue -Endocarditis -UTI -Bone, Joint Infection -Implantable Device -Acute Abdominal Infection -Wound Infection -Meningitis -Blood Stream Catheter Infection -Unknown System Inflammatory Response Syndrome: Not Applicable Miscellaneous Complaint Exam - Complex/Multi-System Complaint/Exam Onset/Duration: FAILURE TO THRIVE , SHORT OF AIR X 2 DAYS GETTING WORSE Symptoms Are: Still present (ARRIVES DISRIENTATED, LETHARGIC) Episodes Lasting: Days Initial Severity: Severe Current Severity: Severe Associated Signs and Symptoms: Reports: Decreased responsiveness, Confusion, Cough. 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, Prior MRSA, Prior VRE, Recent trauma, Remote trauma Related History: Recent Illness (WAS IN HOSPITAL D/C 2 DAYS AGO) Recent Echo/LV Function: No Respiratory Distress: Mild JVD Present: Yes Tachypnea Present: Yes Stridor Present: No Abdominal Findings: Present: Normal findings Glascow Coma Scale (see protocol): 15 AROUSABLE Meningeal Signs Positive: No Focal Weakness: Present: None Focal Sensory Loss: Present: None Gait: Unable Gag Reflex Present: Yes Babinski Sign: Negative Right, Negative Left Skin Findings: Present: Normal findings Joint Swelling Present: No In-Dwelling Device Present: No Differential Diagnosis: Cardiac Ischemia, Metabolic Abnormality, Sepsis, UTI Quality Indicators for Cardiac Chest Pain: EKG in 10min. Quality Indicators for AMI: EKG in 10min. Quality Indicator For Non-Traumatic Chest Pain/Syncope: EKG Performed Review of Systems - Review Of Systems Constitutional: Reports: Malaise, Weakness, Loss of appetite Eyes: Reports: No symptoms Ears, Nose, Mouth, Throat: Reports: No symptoms Respiratory: Reports: No symptoms Cardiac: Reports: No symptoms GI: Reports: No symptoms : Reports: No symptoms Musculoskeletal: Reports: No symptoms Skin: Reports: No symptoms Neurological: Reports: Cognitive dysfunction, Weakness Endocrine: Reports: No symptoms Hematologic/Lymphatic: Reports: No symptoms All Other Systems: Reviewed and Negative Past Medical History - Past Medical History Endocrine: Reports: DM 2 Cardiovascular: Reports: Hypertension, A-Fib Respiratory: Reports: COPD Hematological: Reports: Anemia Gastrointestinal: Reports: GERD Genitourinary: Reports: None Neuro/Psych: Reports: None, Anxiety Musculoskeletal: Reports: Arthritis, Back Pain Cancer: Reports: None Last Menstrual Period: unknown - Surgical History General Surgical History: Reports: None - Family History Family History: Reports: Heart, Hypertension, Diabetes, Stroke - Social History Smoking Status: Former smoker Hx Substance Use: No Alcohol Screening: None Physical Exam - Physical Exam Appearance: Ill-appearing Ill-appearing: Severe Pain Distress: Severe Eyes: NANCY, EOMI, Conjunctiva clear ENT: Dry mucosa Respiratory: Airway patent, Breath sounds clear, Breath sounds equal, Respirations nonlabored Cardiovascular: RRR, Pulses normal, No rub, No murmur GI/: Soft, Nontender, No masses, Bowel sounds normal, No Organomegaly Musculoskeletal: Normal strength, ROM intact, No edema, No calf tenderness Skin: Warm, Dry, Normal color Neurological: Disoriented Psychiatric: Affect appropriate, Mood appropriate Interpretation - Radiology Interpretation Radiology Interpretation By: Radiologist Physician Notification - Case Discussed Physician Notified: PMD Time of Notification: 12:30 (DISCUSSED RESP STATUS , PMD WOULD LIKE PT DISCUSSED WITH FAMILY THAT PT IS VERY ILL, IF THEY WOULD LIKE TO BE TRANSFERED TO A HIGHER LEVEL OF CARE THEN MAKE ARRANGEMENTS NEEDED . WITH PA PRESENT DISCUSSED TRANSFER FAMILY DOES NOT WISH PT INTUBATED STATED PT IS DNR ) Critical Care Note - Critical Care Note Total Time (mins): 0 Course - Course Hematology/Chemistry: 10/12/17 11:20 10/12/17 11:20 Orders, Labs, Meds: Lab Review 10/12/17 10/12/17 10/12/17 11:20 11:20 11:20 WBC 4.53 L RBC 2.43 L Hgb 7.7 L Hct 24.5 L MCV 100.8 H MCH 31.7 H MCHC 31.4 L RDW Coeff of James 15.9 H Plt Count 193 Immature Gran % (Auto) 0.2 Neut % (Auto) 44.8 Lymph % (Auto) 38.9 [place] % (Auto) 13.0 H Eos % (Auto) 2.9 Baso % (Auto) 0.2 Immature Gran # (Auto) 0.0 Neut # 2.0 Lymph # 1.8 [place] # 0.6 Eos # 0.1 Baso # 0.0 Puncture Site O2 Saturation ABG pH ABG pCO2 ABG pO2 ABG HCO3 ABG Total CO2 ABG Base Excess Matt Test FiO2 % Sodium 143 Potassium 4.4 Chloride 97 L Carbon Dioxide 37 H Anion Gap 13.4 BUN 43 H Creatinine 1.99 H Estimated GFR (MDRD) 24.00 BUN/Creatinine Ratio 21.60 Glucose 147 H Calcium 8.5 Total Bilirubin 0.5 AST 17 ALT 11 L Alkaline Phosphatase 60 Total Creatine Kinase 39 Troponin I 0.0160 Total Protein 5.8 Albumin 2.5 L Globulin 3.3 Albumin/Globulin Ratio 0.76 Procalcitonin 0.21 10/12/17 11:45 WBC RBC Hgb Hct MCV MCH MCHC RDW Coeff of James Plt Count Immature Gran % (Auto) Neut % (Auto) Lymph % (Auto) [place] % (Auto) Eos % (Auto) Baso % (Auto) Immature Gran # (Auto) Neut # Lymph # [place] # Eos # Baso # Puncture Site R rad O2 Saturation 69.0 L ABG pH 7.410 ABG pCO2 58.0 H ABG pO2 37.0 L* ABG HCO3 36.8 H ABG Total CO2 39 H ABG Base Excess 12 H Matt Test + FiO2 % 21.0 Sodium Potassium Chloride Carbon Dioxide Anion Gap BUN Creatinine Estimated GFR (MDRD) BUN/Creatinine Ratio Glucose Calcium Total Bilirubin AST ALT Alkaline Phosphatase Total Creatine Kinase Troponin I Total Protein Albumin Globulin Albumin/Globulin Ratio Procalcitonin Orders Category Date Time Status ABG DRAW REQUEST Stat CARDIO 10/12/17 11:04 Completed EKG-(ED ONLY) Stat CARDIO 10/12/17 11:04 Completed ABG Stat LAB 10/12/17 11:45 Completed BLOOD CULTURE Stat LAB 10/12/17 11:06 Received CBC W/ AUTO DIFF Stat LAB 10/12/17 11:20 Completed COMPREHENSIVE METABOLIC PANEL Stat LAB 10/12/17 11:20 Completed CREATINE KINASE Stat LAB 10/12/17 11:20 Completed PRBC Transfusion [PACKED CELLS] Stat LAB 10/12/17 12:18 Ordered PROCALCITONIN Stat LAB 10/12/17 11:20 Received TROPONIN I Stat LAB 10/12/17 11:20 Completed TYPE AND SCREEN Stat LAB 10/12/17 12:18 Ordered UA [URINALYSIS C & S IF INDICATED] Stat LAB 10/12/17 11:07 Uncollected SODIUM CHLORIDE 0.9% @ 125 MLS/HR(500ml) MEDS 10/12/17 12:24 Ordered Sodium Chloride 0.9% [Sodium Chloride] 500 ml IV 125 mls/hr CHEST, 1V AP ONLY Stat RADS 10/12/17 11:03 Completed Medications Generic Name Dose Route Start Last Admin Trade Name Freq PRN Reason Stop Dose Admin Sodium Chloride 500 mls @ 125 mls/hr 10/12/17 12:24 Sodium Chloride IV 10/12/17 16:23 .Q4H STA Vital Signs: Temp Pulse Resp BP Pulse Ox 10/12/17 10:29 98.2 F 98 H 20 106/71 82 L Departure - Departure Time of Disposition: 12:32 Disposition: ADMITTED INPATIENT Discharge Problem: Acute respiratory failure Qualifiers: Respiratory failure complication: hypercapnia Qualified Code(s): J96.02 - Acute respiratory failure with hypercapnia Instructions: Anemia (ED) Condition: Good Pt referred to PMD for follow-up: Yes IPMP verified?: Yes Allergies/Adverse Reactions: Allergies atorvastatin [From Lipitor] Adverse Reaction (Unknown, Verified 10/12/17 10:37) ezetimibe [From Zetia] Adverse Reaction (Unknown, Verified 10/12/17 10:37) glimepiride Adverse Reaction (Unknown, Verified 10/12/17 10:37) rosuvastatin [From Crestor] Adverse Reaction (Unknown, Verified 10/12/17 10:37) Home Medications: Ambulatory Orders Aspirin [Aspirin EC] 81 mg PO DAILYWM 12/14/15 Lorazepam [Ativan] 1 mg PO BEDTIME 12/14/15 Metformin HCl [Glucophage] 500 mg PO BIDWM 12/14/15 Omeprazole [Prilosec] 20 mg PO QDAC 12/14/15 Dabigatran Etexilate Mesylate [Pradaxa] 150 mg PO Q12HR 09/11/17 Ferrous Gluconate 324 mg PO DAILY 09/11/17 Gabapentin 100 mg PO TID 09/11/17 [place]-3/Dha/Epa/Fish Oil [[place] 3 500 Softgel] 1 each PO BID 09/11/17 Simvastatin [Zocor] 10 mg PO BEDTIME 09/11/17 Amlodipine Besylate [Norvasc] 5 mg PO BID #60 tablet 09/24/17 Metoprolol Tartrate [Lopressor] 100 mg PO BIDWM #60 tablet 09/24/17 Mupirocin [Bactroban Ointment 1 Gram Applicator] 1 gm TP BID #1 appl 09/25/17 Potassium Chloride [K-Tab ER] 10 meq PO DAILY 30 Days tablet.er 09/25/17 Albuterol Sulfate 0.083% Neb [Albuterol 0.083% Neb] 1 vial NEB BID PRN 10/12/17 Furosemide [Lasix] 40 mg PO DAILY 10/12/17 Multivit-Min/FA/Lycopen/Lutein [Centrum Silver Tablet] 1 each PO DAILY 10/12/17 Olmesartan/Hydrochlorothiazide [Olmesartan-Hctz 40-12.5 mg Tab] 1 each PO DAILY 10/12/17 Disposition Discussed With: Family
[2017-10-12] MEDS ORDERED: PROTONIX IV IVP STA (13:09)
[2017-10-12] MEDS ORDERED: SOLU-CORTEF 100 MG 100 MG in SODIUM CHLORIDE 100 ML IV ONE (13:13)
[2017-10-12] MEDS ORDERED: SOLU-CORTEF 100 MG IVP ONE (13:30)
[2017-10-12 15:13] VITALS: BMI 24.2
[2017-10-12] MEDS ORDERED: ALBUTEROL 0.083% NEB NEB PRN (15:51)
[2017-10-12] MEDS: XOPENEX 1.25 MG NEB SCH ×2 (17:26→23:27)
[2017-10-12] MEDS ORDERED: NON-FORMULARY MEDICATION (Metoprolol Tartrate [Lopressor] 100 MG) PO SCH (17:30)
[2017-10-12] MEDS: LOPRESSOR PO SCH (17:44)
[2017-10-12] MEDS ORDERED: LASIX IVP ONE (20:00)
[2017-10-12] MEDS: SOLU-MEDROL 125 MG IVP SCH (20:58)
[2017-10-12] MEDS: NEURONTIN PO SCH (20:58)
[2017-10-12] MEDS: ATIVAN PO SCH (20:58)
[2017-10-12] MEDS: HUMULIN R SUBCUT PRN (20:59)
[2017-10-12] MEDS: ROCEPHIN 1 GM in SODIUM CHLORIDE 50 ML IV SCH (20:59)
[2017-10-12] MEDS ORDERED: BACTROBAN TP ONE (21:35)
[2017-10-12] MEDS: BACTROBAN OINTMENT 1 GRAM APPLICATOR (ER) TP SCH (21:35)
[2017-10-13] MEDS: XOPENEX 1.25 MG NEB SCH ×4 (04:32→23:02)
[2017-10-13] MEDS: SOLU-MEDROL 125 MG IVP SCH ×3 (04:33→21:03)
[2017-10-13] MEDS: HUMULIN R SUBCUT PRN ×4 (05:40→20:48)
[2017-10-13] MEDS: LASIX TAB PO SCH (05:40)
[2017-10-13] MEDS: PRILOSEC PO SCH (05:40)
[2017-10-13] MEDS: MICRO-K CAP PO SCH (08:15)
[2017-10-13] MEDS: LOPRESSOR PO SCH ×2 (08:15→16:47)
[2017-10-13] MEDS: ASPIRIN EC PO SCH (08:16)
[2017-10-13] MEDS ORDERED: NON-FORMULARY MEDICATION (Potassium Chloride [K-Tab Er] 10 MEQ) PO SCH (09:00)
[2017-10-13] MEDS ORDERED: NON-FORMULARY MEDICATION (Ferrous Gluconate [Ferrous Gluconate] 324 MG) PO SCH (09:00)
[2017-10-13] MEDS ORDERED: NON-FORMULARY MEDICATION (Multivit-Min/Fa/Lycopen/Lutein [Centrum Silver Tablet] 1 EACH) PO SCH (09:00)
[2017-10-13] MEDS: BENICAR PO SCH (09:49)
[2017-10-13] MEDS: MULTIVITAMIN TABLET PO SCH (09:49)
[2017-10-13] MEDS: FERROUS SULFATE PO SCH (09:49)
[2017-10-13] MEDS: NEURONTIN PO SCH ×3 (09:50→20:46)
[2017-10-13] MEDS: HYDROCHLOROTHIAZIDE PO SCH (09:52)
[2017-10-13] MEDS: BACTROBAN OINTMENT 1 GRAM APPLICATOR (ER) TP SCH ×2 (09:52→20:46)
[2017-10-13] MEDS: SODIUM CHLORIDE 1,000 ML IV SCH ×3 (09:54→23:40)
[2017-10-13] MEDS: ATIVAN PO SCH (20:46)
[2017-10-13] MEDS: ROCEPHIN 1 GM in SODIUM CHLORIDE 50 ML IV SCH (20:46)
[2017-10-14] MEDS: SOLU-MEDROL 125 MG IVP SCH ×3 (04:20→22:02)
[2017-10-14] MEDS: XOPENEX 1.25 MG NEB SCH ×4 (04:35→22:38)
[2017-10-14] MEDS: LASIX TAB PO SCH (05:58)
[2017-10-14] MEDS: PRILOSEC PO SCH (05:58)
[2017-10-14] MEDS: HUMULIN R SUBCUT PRN ×3 (05:58→16:42)
[2017-10-14] MEDS: BACTROBAN OINTMENT 1 GRAM APPLICATOR (ER) TP SCH ×2 (09:28→22:04)
[2017-10-14] MEDS: BENICAR PO SCH (09:29)
[2017-10-14] MEDS: ASPIRIN EC PO SCH (09:29)
[2017-10-14] MEDS: LOPRESSOR PO SCH ×2 (09:29→16:43)
[2017-10-14] MEDS: MICRO-K CAP PO SCH (09:29)
[2017-10-14] MEDS: HYDROCHLOROTHIAZIDE PO SCH (09:30)
[2017-10-14] MEDS: FERROUS SULFATE PO SCH (09:30)
[2017-10-14] MEDS: NEURONTIN PO SCH ×3 (09:31→23:25)
[2017-10-14] MEDS: MULTIVITAMIN TABLET PO SCH (09:31)
[2017-10-14] MEDS: SODIUM CHLORIDE 1,000 ML IV SCH (10:50)
[2017-10-14] MEDS: ROCEPHIN 1 GM in SODIUM CHLORIDE 50 ML IV SCH (22:04)
[2017-10-14] MEDS: ATIVAN PO SCH (22:05)
[2017-10-15] MEDS: SOLU-MEDROL 125 MG IVP SCH ×3 (04:23→20:37)
[2017-10-15] MEDS: XOPENEX 1.25 MG NEB SCH ×4 (04:33→23:25)
[2017-10-15] MEDS: PRILOSEC PO SCH (05:44)
[2017-10-15] MEDS: HUMULIN R SUBCUT PRN ×4 (05:44→20:37)
[2017-10-15] MEDS: LASIX TAB PO SCH (05:45)
[2017-10-15] MEDS ORDERED: ZAROXOLYN PO STA (08:25)
[2017-10-15] MEDS ORDERED: XANAX PO PRN (08:25)
[2017-10-15] MEDS: LOPRESSOR PO SCH ×2 (09:18→17:03)
[2017-10-15] MEDS: BENICAR PO SCH (09:18)
[2017-10-15] MEDS: MICRO-K CAP PO SCH (09:18)
[2017-10-15] MEDS: ASPIRIN EC PO SCH (09:19)
[2017-10-15] MEDS: MULTIVITAMIN TABLET PO SCH (09:19)
[2017-10-15] MEDS: FERROUS SULFATE PO SCH (09:19)
[2017-10-15] MEDS: BACTROBAN OINTMENT 1 GRAM APPLICATOR (ER) TP SCH (09:19)
[2017-10-15] MEDS: NEURONTIN PO SCH ×3 (09:22→20:37)
--- NOTE | 2017-10-15 11:06 | PCM.PROG ---
Attending Provider: ATTENDING PROVIDER: Dr. JIGNA CALIX This patient is seen with Araceli Montgomery, Nurse Practitioner. DATE OF SERVICE: 10/15/17 SUBJECTIVE: This 82 year old WHITE/ F was hospitalized 10/12/17. The patient is lying in bed, alert. She states shortness of breath is slightly improved. Legs are more swollen today. She is having bouts of confusion in the evening. REVIEW OF SYSTEMS: CONSTITUTIONAL: Fatigue. No night sweats. No malaise, lethargy. No fever or chills. HEENT: Eyes: No visual changes. No eye pain. No eye discharge. ENT: No runny nose. No epistaxis. No sinus pain. No odynophagia. No congestion. RESPIRATORY: No cough, no congestion. No hemoptysis. Shortness of breath. CARDIOVASCULAR: No angina symptoms. No CHF symptoms. No atypical chest pain for CAD. No palpitations. No orthopnea.. GASTROINTESTINAL: No abdominal pain. No nausea or vomiting. No diarrhea or constipation. No hematemesis. No hematochezia. GENITOURINARY: No urgency. No frequency. No dysuria. No hematuria. No obstructive symptoms. No discharge. No pain. No significant abnormal bleeding. MUSCULOSKELETAL: No musculoskeletal pain; no joint swelling. NEUROLOGICAL: Awake, alert, oriented to time, place and person. No headache. No neck pain. No syncope. No seizures. No dizziness. PSYCHIATRIC: Not anxious. No depression. No suicidal thoughts. No homicidal thoughts. SKIN: No rash. No lesions. Blister right foot. ENDOCRINE: No unexplained weight loss. No weight gain. HEMATOLOGIC/LYMPHATIC: No anemia. No purpura. No petechiae. No prolonged or excessive bleeding. No palpable lymph nodes. PHYSICAL EXAMINATION: GENERAL: The patient is awake, alert and oriented, lying in bed in no distress. VITAL SIGNS: Temperature 98.1 F, Pulse 109, Respiratory Rate 20, BP 162/72, Pulse Ox 93% HEENT: Head normocephalic, atraumatic. Eyes: Extraocular muscles are intact. Pupils are equal, round and reactive to light and accommodation. Ears: No lesions. Nose appeared normal. Throat: No exudate or erythema. NECK: Supple. No JVD, no carotid bruit. No lymphadenopathy or thyromegaly. LUNGS: Diminished breath sounds. Clear to auscultation. Percussion note normal. Chest symmetrical. HEART: Irregular heart rate. S1, S2, no S3. No murmurs. No cyanosis or clubbing. No ascites. Pulses: Dorsalis pedis and posterior tibial pulses +1 to +2 both sides. ABDOMEN: Soft. Non-tender. Bowel sounds active. No CVA tenderness. No mass felt. EXTREMITIES: +2 pitting leg edema. Full range of motion of all extremities, equal. NEUROLOGIC: No focal deficit. Cranial nerves II through XII are grossly intact. No headache, no double vision or headache. SKIN: Warm, dry. Superficial blister right foot with scabbing and clear drainage. Turgor-normal. LYMPHATIC: No palpable lymph nodes/no lymphedema. MUSCULOSKELETAL: Normal joints with no swelling. Muscle tone is normal. LAB REVIEW: 10/15/17 05:00 10/15/17 05:00 10/15/17 05:00: Sodium 138, Potassium 3.8, Chloride 96 L, Carbon Dioxide 27, Anion Gap 18.8, BUN 53 H, Creatinine 1.89 H, Estimated GFR (MDRD) 26.00, BUN/ Creatinine Ratio 28.04, Glucose 218 H, Calcium 8.8, Total Bilirubin 0.4, AST 25 , ALT 23, Alkaline Phosphatase 67, Total Protein 6.9, Albumin 2.9 L, Globulin 4.0, Albumin/Globulin Ratio 0.73 10/15/17 05:00: WBC 13.97 H D, RBC 3.79 L, Hgb 11.7 L, Hct 35.3 L, MCV 93.1, MCH 30.9, MCHC 33.1, RDW Coeff of James 17.2 H, Plt Count 313 D, Immature Gran % (Auto) 1.1, Neut % (Auto) 85.2, Lymph % (Auto) 9.7 L, [place] % (Auto) 3.9, Eos % ( Auto) 0.0, Baso % (Auto) 0.1, Immature Gran # (Auto) 0.2, Neut # 11.9 H, Lymph # 1.4, [place] # 0.6, Eos # 0.0, Baso # 0.0 ASSESSMENT: 1. LEG EDEMA 2. ANEMIA 3. CHRONIC KIDNEY DISEASE 4. COPD 5. ATRIAL FIB PLAN: 1. ABG on room air 2. D/C Hydrochlorothiazide 3. Zaroxolyn 2.5 mg today 4. Xanax 0.25 mg as needed once a day 5. Room air ABG 6. Bactroban apply to blister on right foot Plan and coordination of the patient's care discussed in the presence of Um Specialist and nurse. CONDITION: SCRIBED BY: EDWIN EMERSON Elevator Pilot scribed while in presence of service performed by Dr. Calix/Araceli Montgomery APRN on 10/15/17 ([id number])
[2017-10-15] MEDS: ROCEPHIN 1 GM in SODIUM CHLORIDE 50 ML IV SCH (20:36)
[2017-10-15] MEDS: BACTROBAN TP SCH (20:37)
[2017-10-15] MEDS: ATIVAN PO SCH (22:01)
[2017-10-16] MEDS: SOLU-MEDROL 125 MG IVP SCH ×3 (04:55→20:10)
[2017-10-16] MEDS: PRILOSEC PO SCH (05:38)
[2017-10-16] MEDS: HUMULIN R SUBCUT PRN ×4 (05:39→20:11)
[2017-10-16] MEDS: LASIX TAB PO SCH (05:39)
[2017-10-16] MEDS: XOPENEX 1.25 MG NEB SCH ×4 (05:40→23:10)
--- NOTE | 2017-10-16 08:19 | HP ---
DATE OF SERVICE: 10/12/17 REASON FOR HOSPITALIZATION/HISTORY OF PRESENT ILLNESS: 82 year old white female was brought to the emergency room by the daughter after the daughter had come and saw us in the office with complaints of her mom having confusion, leg edema and shortness of breath. The patient had further workup by ER attending in a way of arterial blood gasses showed pO2 of 37, pCO2 58 and pH 7.41 with 69% saturation on room air. The patient's creatinine was 1.99 with BUN 43. The patient's GFR was 24 she was in obvious renal failure so the hgb was 7.7 with hct 24 with MCV of 100. The patient has severe anemia and she seems to be symptomatic from it. In any case all these problems were discussed with the daughter and the patient. The patient was confused and the daughter indicated that the patient is a DNR and she continues to be DNR. I had discussed with them the problem that she has could be better taken care of by pulmonary physician in one of the [place] and the daughter flatly refused and indicated that she would like all these medical problems taken care of by me. Also she indicated that that also the patient's wish. PAST MEDICAL HISTORY/PAST SURGICAL HISTORY: The patient was discharged from the hospital on 09/25/17 after she was hospitalized under swing bed. The patient was undergoing at that time in the swing bed physical therapy for her lip hip arthroplasty done in August 2017. Bronchiolitis Congestive heart failure Atrial fibrillation Hypertension COPD Reflux disease Dyslipidemia Diabetes Mellitus type 2 Anemia Former heavy smoker Diastolic heart failure with borderline left ventricular hypertrophy with normal LV size. Enlarged LA cavity noted with on valvular right atrial fibrillation. According to the daughter the patient had done well after discharge from Hospital. She was up and about walking but during past two to three days her condition has deteriorated to the point where she is not able to walk. She has leg edema and confused had increased. The patient has history of some confusion during the evening hours. REVIEW OF SYSTEMS: CONSTITUTIONAL: No night sweats. Weakness and fatigue at home with inability to walk for last couple of days. No fever or chills. HEENT: Eyes: No visual changes. No eye pain. No eye discharge. ENT: No runny nose. No epistaxis. No sinus pain. No sore throat. No odynophagia. No ear pain. No congestion. RESPIRATORY: No cough, no congestion. No hemoptysis. Shortness of breath on exertion. CARDIOVASCULAR: No angina symptoms. No CHF symptoms. No atypical chest pain for CAD. No palpitations. No orthopnea. No PND. GASTROINTESTINAL: No abdominal pain. No nausea or vomiting. No diarrhea or constipation. No hematemesis. No hematochezia. Poor appetite. GENITOURINARY: No urgency. No frequency. No dysuria. No hematuria. No obstructive symptoms. No discharge. No pain. No significant abnormal bleeding. MUSCULOSKELETAL: No musculoskeletal pain. No joint swelling. No arthritis. The patient is unable to walk and requires a lot of help. Weakness. NEUROLOGICAL: No headache. No neck pain. No syncope. No seizures. Dizziness. Confusion. Sleepiness. PSYCHIATRIC: Not anxious. No depression. No suicidal thoughts. No homicidal thoughts. SKIN: No rash. No lesions. No wounds. ENDOCRINE: No unexplained weight loss. No weight gain. HEMATOLOGIC/LYMPHATIC: No anemia. No purpura. No petechiae. No prolonged or excessive bleeding. No palpable lymph nodes. PERSONAL/FAMILY/SOCIAL HISTORY: The patient is former smoker. No alcohol abuse. Lives with the daughter and does all activity of daily living usually. Gets confused at times during the evening hours or change of place. MEDICATIONS: Aspirin Pradaxa 150mg twice a day Ferrous Sulfate 325 PO daily Lasix 40mg daily Gabapentin 100mg three times a day Ativan 1mg PO at bedtime Metformin 500mg PO twice a day Metoprolol 100mg PO Daily Amlodipine 5mg one twice a day Benicar 40mg PO daily Prilosec 20mg PO daily Zocor 10mg PO daily ALLERGIES: Atorvastatin Ezetimibe Glimepiride Rosuvastatin PHYSICAL EXAMINATION: VITAL SIGNS: Systolic blood pressure 100, pulse 100 irregular, respiratory rate 17, oxygen saturation 92% with BIPAP. I saw the patient in the emergency room. HEENT: Head normocephalic, atraumatic. Eyes: Extraocular muscles are intact. Pupils are equal, round and reactive to light and accommodation. Ears: No lesions. Nose appeared normal. Throat: No exudate or erythema. Pale face. NECK: Supple. No JVP, no carotid bruit. No lymphadenopathy or thyromegaly. LUNGS: Decreased breath sounds with Clear to auscultation. No crepitations. Percussion note normal. Chest symmetrical. HEART: S1, S2, no S3. No murmurs. No cyanosis or clubbing. No ascites. Pulses: Dorsalis pedis and posterior tibial pulses +1 to +2 both sides. PMI not palpable on auscultation. ABDOMEN: Soft. Nontender. Bowel sounds active. No CVA tenderness. No mass felt. EXTREMITIES: +1-+2 pitting edema. Full range of motion of all extremities, equal. NEUROLOGIC: No focal deficit. Cranial nerves II through XII are grossly intact. No headache, no double vision or headache. Confused. The patient is awake and moving all her extremities. SKIN: Dry. Intact. Turgor - normal. Mucosa membrane dry. LYMPHATIC: No palpable lymph nodes/no lymphedema. MUSCULOSKELETAL: Normal joints with no swelling. Muscle tone is normal. ASSESSMENT: 1. Acute respiratory failure 2. Severe anemia 3. Acute renal failure 4. History of recent left hip repair 5. Hypertension 6. Dyslipidemia 7. History of congestive heart failure 8. Chronic lung disease with history of smoking 9. Reflux disease 10.Diabetes Mellitus type 2 11.History of Anemia requiring blood transfusion during last hospitalization. The patient was on respirator after left hip arthroplasty at one of the [facility] in August PLAN: 1. EKG 2. Telemetry 3. Admit the patient in special care 4. Daily Protonix 40mg IV daily 5. Type and cross match two units of packed red cells 6. ABG and monitor the ABG 7. BIPAP with further management depending upon the patient's blood gasses 8. Diet as tolerated 9. IV Solu-Cortef 100mg Q 8 hours 10.Xopenex Q 6 hours 11.Continue the rest of the medication 12.Discontinue Simvastatin and Amlodipine 13.IV fluids 75cc per hour 14.Watch for fluid overload 15.The patient's condition discussed with the daughter. The patient's condition is critical. The patient is DNR. 16.Continue to monitor CBC and CMP TIME SPENT: Critical care time spent 2 hours. EB
--- NOTE | 2017-10-16 08:25 | PN ---
DATE OF SERVICE: 10/13/17 SUBJECTIVE: 82 year old white female hospitalized with acute respiratory failure, acute renal failure and severe anemia. The patient's condition has improved remarkably. Her blood gasses are better. Oxygen saturation with 2 liters is 94% . She is alert and oriented to time, place and person. The family is very happy. REVIEW OF SYSTEMS: CONSTITUTIONAL: No night sweats. No fatigue, malaise, lethargy. No fever or chills. HEENT: Eyes: No visual changes. No eye pain. No eye discharge. ENT: No runny nose. No epistaxis. No sinus pain. No sore throat. No odynophagia. No congestion. RESPIRATORY: No cough, no congestion. No hemoptysis. No shortness of breath. CARDIOVASCULAR: No angina symptoms. No CHF symptoms. No atypical chest pain for CAD. No palpitations. No orthopnea. No PND. GASTROINTESTINAL: No abdominal pain. No nausea or vomiting. No diarrhea or constipation. No hematemesis. No hematochezia.Appetite is improved. GENITOURINARY: No urgency. No frequency. No dysuria. No hematuria. No obstructive symptoms. No discharge. No pain. No significant abnormal bleeding. MUSCULOSKELETAL: No musculoskeletal pain; no joint swelling. NEUROLOGICAL: No headache. No neck pain. No syncope. No seizures. No dizziness. PSYCHIATRIC: Not anxious. No depression. No suicidal thoughts. No homicidal thoughts. Mental status has improved. SKIN: No rash. No lesions. No wounds. ENDOCRINE: No unexplained weight loss. No weight gain. HEMATOLOGIC/LYMPHATIC: No anemia. No purpura. No petechiae. No prolonged or excessive bleeding. No palpable lymph nodes. PHYSICAL EXAMINATION: GENERAL: The patient is oriented to time, place and person. VITAL SIGNS: Temperature 96.6, pulse 94, respiratory rate 22, blood pressure 127/89 and pulse ox 94% on 2liters. HEENT: Head normocephalic, atraumatic. Eyes: Extraocular muscles are intact. Pupils are equal, round and reactive to light and accommodation. Ears: No lesions. Nose appeared normal. Throat: No exudate or erythema. NECK: Supple. No JVD, no carotid bruit. No lymphadenopathy or thyromegaly. LUNGS: Decreased breath sounds but good air entry. Clear to auscultation. Percussion note normal. Chest symmetrical. HEART: S1, S2, no S3. No murmurs. No cyanosis or clubbing. No ascites. Pulses: Dorsalis pedis and posterior tibial pulses +1 to +2 both sides. ABDOMEN: Soft. Nontender. Bowel sounds active. No CVA tenderness. No mass felt. EXTREMITIES: Leg edema has practically resolved. Full range of motion of all extremities, equal. NEUROLOGIC: No focal deficit. Cranial nerves II through XII are grossly intact. No headache, no double vision or headache. SKIN: Not dry. Intact. Turgor - better. LYMPHATIC: No palpable lymph nodes/no lymphedema. MUSCULOSKELETAL: Normal joints with no swelling. Muscle tone is normal. LABS: Hgb 9.4, cht 28, WBC 4,000 normal differential, creatinine 25, BUN 44, potassium 4.2, glucose 152 ASSESSMENT: 1. Acute respiratory failure seems to be resolving 2. Severe anemia, now got two units of packed red cells with hgb of 9.4 and hct 28. No evidence of active GI bleed 3. Acute renal failure seems to be stabilizing PLAN: 1. Continue IV fluids with no evidence of fluid overload 2. Continue steroids and antibiotics 3. Watch for fluid overload 4. Telemetry is being monitored 5. Oximetry is being monitored, rhythm strips examined 6. EKG unchanged. No acute changes. 7. The patient is DNR 8. The patient doesn't want to be transferred for any other further problem but now doesn't seem to need that transfer. CONDITION: Stabilizing. TIME SPENT: More than 30 minutes. Plan and coordination of the patient's care discussed in the presence of nurse. EB
--- NOTE | 2017-10-16 08:36 | PN ---
DATE OF SERVICE: 10/14/17 SUBJECTIVE: 82 year old white female hospitalized with acute respiratory failure, acute renal failure and severe anemia. The patient's hgb is now 10, hct 30, WBC 6,000 her kidney functions have improved to 1.8 and 47. Her skin turgor looks better and her color looks better. Blood glucose is up because likely from steroids. She is alert and oriented to time, place and person. Her blood gasses on 2 liters pO2 81 with pCO2 54, pH 7.38 this is on 2 liters with 98% saturation that is remarkably improvement in her blood gasses. REVIEW OF SYSTEMS: CONSTITUTIONAL: No night sweats. No fatigue, malaise, lethargy. No fever or chills. HEENT: Eyes: No visual changes. No eye pain. No eye discharge. ENT: No runny nose. No epistaxis. No sinus pain. No sore throat. No odynophagia. No congestion. RESPIRATORY: No cough, no congestion. No hemoptysis. No shortness of breath. CARDIOVASCULAR: No angina symptoms. No CHF symptoms. No atypical chest pain for CAD. No palpitations. No orthopnea. GASTROINTESTINAL: No abdominal pain. No nausea or vomiting. No diarrhea or constipation. No hematemesis. No hematochezia. GENITOURINARY: No urgency. No frequency. No dysuria. No hematuria. No obstructive symptoms. No discharge. No pain. No significant abnormal bleeding. MUSCULOSKELETAL: No musculoskeletal pain; no joint swelling. NEUROLOGICAL: No headache. No neck pain. No syncope. No seizures. No dizziness. PSYCHIATRIC: Not anxious. No depression. No suicidal thoughts. No homicidal thoughts. SKIN: No rash. No lesions. No wounds. ENDOCRINE: No unexplained weight loss. No weight gain. HEMATOLOGIC/LYMPHATIC: No anemia. No purpura. No petechiae. No prolonged or excessive bleeding. No palpable lymph nodes. PHYSICAL EXAMINATION: GENERAL: The patient is , lying/sitting in bed in no distress. VITAL SIGNS: Temperature 97.4, pulse 97, respiratory rate 20,blood pressure 118 /68 and pulse ox 97%. HEENT: Head normocephalic, atraumatic. Eyes: Extraocular muscles are intact. Pupils are equal, round and reactive to light and accommodation. Ears: No lesions. Nose appeared normal. Throat: No exudate or erythema. NECK: Supple. No JVD, no carotid bruit. No lymphadenopathy or thyromegaly. LUNGS: Decreased breath sounds but clear to auscultation. Percussion note normal. Chest symmetrical. HEART: S1, S2, no S3. No murmurs. No cyanosis or clubbing. No ascites. Pulses: Dorsalis pedis and posterior tibial pulses +1 to +2 both sides. ABDOMEN: Soft. Nontender. Bowel sounds active. No CVA tenderness. No mass felt. EXTREMITIES: No edema. Full range of motion of all extremities, equal. NEUROLOGIC: No focal deficit. Cranial nerves II through XII are grossly intact. No headache, no double vision or headache. SKIN: Not dry. Intact. Turgor - normal. LYMPHATIC: No palpable lymph nodes/no lymphedema. MUSCULOSKELETAL: Normal joints with no swelling. Muscle tone is normal. ASSESSMENT: 1. Acute renal failure seems to be resolving 2. Acute respiratory failure seems to have resolved with excellent blood gasses 3. Anemia seems to be stable with no evidence of active GI bleed 4. Atrial fibrillation 5. CHF under control with no fluids overload PLAN: 1. Discontinue IV fluids 2. Do the U/A which is abnormal 3. Do culture sensitivity 4. Continue Rocephin The patient's family is reluctant for her to get started on Pradaxa or any Norval blood thinners or Coumadin. They are blaming Norval blood thinners and blood thinners on her low blood count. They are reluctant to have her undergo any colonoscopy or EGD. CONDITION: Stabilizing TIME SPENT: More than 30 minutes. Plan and coordination of the patient's care discussed in the presence of nurse. EB
[2017-10-16] MEDS: BACTROBAN TP SCH ×2 (09:15→20:12)
[2017-10-16] MEDS: LOPRESSOR PO SCH ×2 (09:17→17:24)
[2017-10-16] MEDS: ASPIRIN EC PO SCH (09:17)
--- NOTE | 2017-10-16 09:17 | PCM.PROG ---
Attending Provider: ATTENDING PROVIDER: Dr. JIGNA CALIX This patient is seen with Araceli Montgomery, Nurse Practitioner. DATE OF SERVICE: 10/16/17 SUBJECTIVE: This 82 year old WHITE/ F was hospitalized 10/12/17. The patient is sitting in chair, alert. Leg edema on right is improved. Blister slightly more red. She has been eating well. REVIEW OF SYSTEMS: CONSTITUTIONAL: Weakness. No night sweats. No malaise, lethargy. No fever or chills. HEENT: Eyes: No visual changes. No eye pain. No eye discharge. ENT: No runny nose. No epistaxis. No sinus pain. No odynophagia. No congestion. RESPIRATORY: No cough, no congestion. No hemoptysis. Shortness of breath. CARDIOVASCULAR: No angina symptoms. No CHF symptoms. No atypical chest pain for CAD. No palpitations. No orthopnea.. GASTROINTESTINAL: No abdominal pain. No nausea or vomiting. No diarrhea or constipation. No hematemesis. No hematochezia. GENITOURINARY: No urgency. No frequency. No dysuria. No hematuria. No obstructive symptoms. No discharge. No pain. No significant abnormal bleeding. MUSCULOSKELETAL: No musculoskeletal pain; no joint swelling. NEUROLOGICAL: Awake, alert, oriented to time, place and person. No headache. No neck pain. No syncope. No seizures. No dizziness. PSYCHIATRIC: Not anxious. No depression. No suicidal thoughts. No homicidal thoughts. SKIN: No rash. No lesions. Blister right foot. ENDOCRINE: No unexplained weight loss. No weight gain. HEMATOLOGIC/LYMPHATIC: No anemia. No purpura. No petechiae. No prolonged or excessive bleeding. No palpable lymph nodes. PHYSICAL EXAMINATION: GENERAL: The patient is awake, alert and oriented, sitting in chair in no distress. VITAL SIGNS: Temperature 97.2 F, Pulse 116, Respiratory Rate 20, BP 158/93, Pulse Ox 91% HEENT: Head normocephalic, atraumatic. Eyes: Extraocular muscles are intact. Pupils are equal, round and reactive to light and accommodation. Ears: No lesions. Nose appeared normal. Throat: No exudate or erythema. NECK: Supple. No JVD, no carotid bruit. No lymphadenopathy or thyromegaly. LUNGS: Diminished breath sounds. Clear to auscultation. Percussion note normal. Chest symmetrical. HEART: Irregular heart rate. S1, S2, no S3. No murmurs. No cyanosis or clubbing. No ascites. Pulses: Dorsalis pedis and posterior tibial pulses +1 to +2 both sides. ABDOMEN: Soft. Non-tender. Bowel sounds active. No CVA tenderness. No mass felt. EXTREMITIES: No edema. Full range of motion of all extremities, equal. NEUROLOGIC: No focal deficit. Cranial nerves II through XII are grossly intact. No headache, no double vision or headache. SKIN: Warm and dry. 2" scabbed blister on the right foot with mild surrounding erythema with yellow crusting. Turgor-normal. LYMPHATIC: No palpable lymph nodes/no lymphedema. MUSCULOSKELETAL: Normal joints with no swelling. Muscle tone is normal. LAB REVIEW: 10/16/17 04:30 10/16/17 04:30 10/16/17 04:30: Sodium 141, Potassium 3.7, Chloride 96 L, Carbon Dioxide 32 H, Anion Gap 16.7, BUN 59 H, Creatinine 1.95 H, Estimated GFR (MDRD) 25.00, BUN/ Creatinine Ratio 30.25, Glucose 172 H, Calcium 8.9, Total Bilirubin 0.3, AST 67 H D, ALT 52, Alkaline Phosphatase 64, Total Protein 6.6, Albumin 2.9 L, Globulin 3.7, Albumin/Globulin Ratio 0.78 10/16/17 04:30: WBC 9.21, RBC 3.84 L, Hgb 11.6 L, Hct 36.7 L, MCV 95.6, MCH 30.2 , MCHC 31.6 L, RDW Coeff of James 16.9 H, Plt Count 284, Immature Gran % (Auto) 1.8, Neut % (Auto) 90.3, Lymph % (Auto) 4.7 L, [place] % (Auto) 3.1, Eos % (Auto) 0.0, Baso % (Auto) 0.1, Immature Gran # (Auto) 0.2, Neut # 8.3 H, Lymph # 0.4 L , [place] # 0.3 L, Eos # 0.0, Baso # 0.0 10/15/17 08:25: Puncture Site Lbrach, O2 Saturation 80.0 L, ABG pH 7.356, ABG pCO2 52.3 H, ABG pO2 47.0 L*, ABG HCO3 29.3 H, ABG Total CO2 31 H, ABG Base Excess 4 H, FiO2 % 21.0 ASSESSMENT: 1. LEG EDEMA, IMPROVING 2. HYPERTENSION 3. ANEMIA 4. CHRONIC KIDNEY DISEASE 5. COPD 6. ATRIAL FIB PLAN: 1. Restart Norvasc 5 mg at night 2. Clindamycin 150 mg p.o. t.i.d. Plan and coordination of the patient's care discussed in the presence of Thread Grinder and nurse. CONDITION: Stable SCRIBED BY: EDWIN EMERSON Pre Algebra Teacher scribed while in presence of service performed by Dr. Calix/Araceli Montgomery APRN on 10/16/17 ([id number])
[2017-10-16] MEDS: CLEOCIN PO SCH ×3 (09:18→20:10)
[2017-10-16] MEDS: MICRO-K CAP PO SCH (09:18)
[2017-10-16] MEDS: NEURONTIN PO SCH ×3 (09:19→20:11)
[2017-10-16] MEDS: MULTIVITAMIN TABLET PO SCH (09:19)
[2017-10-16] MEDS: FERROUS SULFATE PO SCH (09:19)
[2017-10-16] MEDS: BENICAR PO SCH (09:19)
--- NOTE | 2017-10-16 11:12 | PN ---
DATE OF SERVICE: 10/15/17 SUBJECTIVE: The patient was hospitalized with acute renal failure, severe anemia and acute respiratory failure. The patient's condition has improved. She is chronic respiratory failure with improved oxygen saturation on 2 liters. Her kidney function 1.5 and 25 so doing better and anemia seems to be stable with no evidence of active GI bleed. The patient is off Pradaxa. The family still does want her to be started on Pradaxa. They don't want any blood thinner. We will start her on maybe baby aspirin. PHYSICAL EXAMINATION: HEENT: Head normocephalic, atraumatic. Eyes: Extraocular muscles are intact. Pupils are equal, round and reactive to light and accommodation. Ears: No lesions. Nose appeared normal. Throat: No exudate or erythema. NECK: Supple. No JVD, no carotid bruit. No lymphadenopathy or thyromegaly. LUNGS: Decreased breath sounds but clear to auscultation. Percussion note normal. Chest symmetrical. HEART: S1, S2, no S3. No murmurs. No cyanosis or clubbing. No ascites. Pulses: Dorsalis pedis and posterior tibial pulses +1 to +2 both sides. ABDOMEN: Soft. Nontender. Bowel sounds active. No CVA tenderness. No mass felt. EXTREMITIES: 1+ to +2 pitting edema. Kept her legs down yesterday. Full range of motion of all extremities, equal. NEUROLOGIC: No focal deficit. Cranial nerves II through XII are grossly intact. No headache, no double vision or headache. SKIN: Not dry. Intact. Turgor - normal. LYMPHATIC: No palpable lymph nodes/no lymphedema. MUSCULOSKELETAL: Normal joints with no swelling. Muscle tone is normal. PLAN: 1. Given IV Lasix 2. Increase the Antihypertensive medication as systolic has gone up. The patient was seen and examined with the Nurse Practitioner. TIME SPENT: More than 30 minutes. Plan and coordination of the patient's care discussed in the presence of nurse. EB
--- NOTE | 2017-10-16 11:27 | RS.PTINEVL ---
Subjective - Patient information Date of Evaluation: 10/16/17 Date of Arrival on Unit: 10/15/17 Admitted From:: Home Diagnosis: failure to thrive, SOA, acute resp failure with hypercapnia Usual Living Arrangement: Alone Living Arrangement Comments: pt was living alone and had family/caregivers staying with her 24hours since dc from last hosp stay. Home Environment: Apartment, Level/No stairs Medical History Comments:: renal failure, afib with RVR, L hip fx Surgical History: Cholecystectomy, Hysterectomy Surgical History Comments:: L hip fx repair Medications: see chart Subjective Information/ Patient Comments:: pt states "I will try to get up" "My family would not let me walk on my own at home." - Level of function Prior to this admission, the patient could do the following:: Independent Selfcare, Independent ADL's, Independent Ambulation Current Level of Function: Partially Dependent Current Equipment Used at Home: rwx, bsc, shower chair Interventions - Objective Patient Orientation: Person, Place Current Interventions: IV's, Oxygen, Telemetry Observation: pt speech weak, mumbling, confused Range of Motion - ROM Right Upper Extremity AROM: WFL's Left Upper Extremity AROM: WFL's Right Lower Extremity AROM: WFL's Left Lower Extremity AROM: WFL's Muscle Strength - Muscle Strength Right Upper Extremity Strength: Mild Weakness (BUE shld flex 3+/5, elbow flex/ ext 4-/5) Left Upper Extremity Strength: Mild Weakness (BUE shld flex 3+/5, elbow flex/ ext 4-/5) Right Lower Extremity Strength: Mild Weakness (hip flex 4-/5, knee flex/ext 4/5 , ankle Df/PF 4/5) Left Lower Extremity Strength: Mild Weakness (hip flex 3+/5, knee flex/ext 4-/5 , ankle DF/PF 4/5) Sensation - Sensation Right Upper Extremity Sensation: Intact/Normal Left Upper Extremity Sensation: Intact/Normal Right Lower Extremity Sensation: Impaired Left Lower Extremity Sensation: Impaired (n/t B feet) Palpation Palpation Findings: None/Normal Balance - Sitting Balance and Reactions Static Sitting Balance: Fair Dynamic Sitting Balance: Poor Sitting Equilibrium Reactions: Delayed Left, Delayed Right Sitting Protective Reactions: Delayed Left, Delayed Right - Standing Balance and Reactions Static Standing Balance: Poor Dynamic Standing Balance: Poor Standing Equilibrium Reactions: Delayed Left, Delayed Right Standing Protective Reactions: Delayed Left, Delayed Right - Comments Balance Assessment Comments: pt with increased lat sway, flexed posture, decreased FREDA Functional Mobility - Bed Mobility Rolling R/L: CGA Supine to Sit: Min Assist - Transfers Sit to Stand: Min Assist Stand to Sit: Min Assist - Safety Awareness Safety Awareness: Poor Ambulation - Ambulation Assistive Device Used: Rolling Walker Orthotic/Prosthetic Device: No Distance: 40ft Assistance needed with Ambulation: Min Assist, 1 person assist Gait Deviations: Narrow Based gait, Forward posture, Short stride Ambulation Comments: pt amb with decreased FREDA with occasional scissoring, increased lat sway Factors Affecting Ambulation: Decreased Balance, Breathing/O2 Saturation, Weakness, Decreased Safety, Cognitive Status, Limited Endurance Treatment time - Time with patient Total treatment time: 32 Patient Education - Education Patient Education: Education of diagnosis, Home Exercise Program, Education of Plan of Care Teaching Recipient: Patient Teaching Methods: Discussion, Demonstration (Discussion with patient regarding POC and safety) Assessment - Assessment Problem List:: Decreased level of function, Requires training/education, Decreased safety/Risk of falls, Weakness, Cognitive status limits abilities Rehab Potential: Good Further Therapy Indicated?: Yes Evaluation Complexity: HISTORY: Medium (COPD, renal failure, resp failure), EXAM OF BODY SYSTEMS: Medium, CLINICAL PRESENTATION: Medium, CLINICAL DECISION MAKING: Medium Short Term Goals GOAL #1: Transfer sup to/from sit to/from stand CGA Goal to be met by: 10/18/17 GOAL #2: pt amb with rwx 100ft with CGA with no LOB Goal to be met by: 10/18/17 GOAL #3: pt independent with bed mobility Goal to be met by: 10/18/17 Care Home Goals GOAL #1: pt transfer sup to/from sit to/from stand independently Goal to be met by: 10/21/17 GOAL #2: pt amb 150ft with rwx SBA with no LOB Goal to be met by: 10/21/17 GOAL #3: pt with improved BLE strength to 4- to 4/5 independent with HEP Goal to be met by: 10/21/17 Plan Plan of Care: Therapeutic EX, Therapeutic Activity Other:: gait training Frequency of Treatment: 1-2 X day, as tolerated Duration of Treatment: 5 days Anticipated Discharge Destination: possible NHP Has the Physician been added for Co-signature?: Yes
--- NOTE | 2017-10-16 16:30 | RS.OTINEVL ---
Subjective - Patient information Date of Evaluation: 10/16/17 Date of Arrival on Unit: 10/15/17 Admitted From:: Home Diagnosis: Respiratory failure, anemia, renal failure Usual Living Arrangement: Alone Living Arrangement Comments: pt was living alone at home and family/caregivers staying with her 24hours since dc from last hosp stay. Home Environment: Apartment, Level/No stairs Medical History Comments:: renal failure, afib with RVR, L hip fx Surgical History: Cholecystectomy, Hysterectomy Surgical History Comments:: L hip fx repair Medications: see chart - Level of function Prior to this admission, the patient could do the following:: Independent Selfcare, Independent ADL's, Independent Ambulation Abilities prior to this admission: Walked with a RW. Current Equipment Used at Home: rwx, bsc, shower chair Pain Assessment - Pain Pain Score: 0 Interventions - Objective Patient Orientation: Person, Place, Situation Current Interventions: IV's, Telemetry Interventions - ROM Right Upper Extremity AROM: WFL's Left Upper Extremity AROM: WFL's - Strength Right Upper Extremity Strength: Mild Weakness Left Upper Extremity Strength: Mild Weakness - Sensation Right Upper Extremity Sensation: Intact/Normal Left Upper Extremity Sensation: Intact/Normal Balance - Sitting Balance Static Sitting Balance: Good Dynamic Sitting Balance: Fair - Standing Balance Static Standing Balance: Poor Dynamic Standing Balance: Poor ADL Skills - Self Feeding Self Feeding: Set Up Only - Grooming Grooming: Min Assist - Bathing Bathing UE: Min Assist Bathing LE: Min Assist - Dressing Dressing UE: Mod Assist Dressing LE: Mod Assist - Toilet Management Toileting Management: Min Assist Functional Mobility - Bed Mobility Rolling R/L: Independent - Transfers Sit to Stand: Min Assist Stand to Sit: Min Assist Stand Pivot Transfers: Min Assist - Ambulation Weight Bearing Status: FWB Assistance needed with Ambulation: Min Assist Additional Treatment Performed - Time with patient Total treatment time: 20 Activities Patient Interests:: Reading Books/Magazines, Visiting/Socializing Patient Education Patient Education: Education of diagnosis, Home Exercise Program Teaching Recipient: Patient Teaching Methods: Discussion Assessment Problem List:: Decreased level of function, Requires training/education, Decreased safety/Risk of falls, Weakness Rehab Potential: Good Further Therapy Indicated?: Yes Evaluation Complexity: HISTORY: Medium, EXAM OF BODY SYSTEMS: Medium, CLINICAL DECISION MAKING: Medium Short Term Goals - Goals GOAL 1: Pt will utilize appropriate AD/AE for increase safety with ADL performance. Goal to be met by: 10/23/17 GOAL 2: Pt to increase BUE strength to 4/5 to improve ambulation with RW/ Goal to be met by: 10/23/17 GOAL 3: Pt to increase dyn. std. bal. to F+/good for sink level ADLS. Goal to be met by: 10/23/17 Intermediate Goals GOAL 1: Pt will utilize appropriate AD/AE for increase safety with ADL performance. Goal to be met by: 10/30/17 GOAL 2: Pt to increase BUE strength to 4/5 to improve ambulation with RW/ Goal to be met by: 10/30/17 GOAL 3: Pt to increase dyn. std. bal. to F+/good for sink level ADLS. Goal to be met by: 10/30/17 Plan Plan of Care: Therapeutic EX Frequency of Treatment: 1-2 X day, as tolerated Duration of Treatment: 2 Weeks Anticipated Discharge Destination: Home Has the Physician been added for Co-signature?: Yes
[2017-10-16] MEDS: ROCEPHIN 1 GM in SODIUM CHLORIDE 50 ML IV SCH (20:10)
[2017-10-16] MEDS: ATIVAN PO SCH (20:11)
[2017-10-16] MEDS: NORVASC PO SCH (20:11)
[2017-10-17] MEDS: SOLU-MEDROL 125 MG IVP SCH ×3 (04:31→20:33)
[2017-10-17] MEDS: CLEOCIN PO SCH ×3 (04:31→20:32)
[2017-10-17] MEDS: XOPENEX 1.25 MG NEB SCH ×3 (05:35→16:54)
[2017-10-17] MEDS: LASIX TAB PO SCH (05:38)
[2017-10-17] MEDS: PRILOSEC PO SCH (05:39)
[2017-10-17] MEDS: HUMULIN R SUBCUT PRN ×4 (05:57→20:50)
[2017-10-17] MEDS ORDERED: LASIX TAB PO SCH (08:27)
[2017-10-17] MEDS: ASPIRIN EC PO SCH (08:49)
[2017-10-17] MEDS: BACTROBAN TP SCH ×2 (08:49→22:34)
[2017-10-17] MEDS: BENICAR PO SCH (08:50)
[2017-10-17] MEDS: FERROUS SULFATE PO SCH (08:51)
[2017-10-17] MEDS: K-DUR PO SCH ×2 (08:51→17:07)
[2017-10-17] MEDS: LOPRESSOR PO SCH ×2 (08:52→17:07)
[2017-10-17] MEDS: MULTIVITAMIN TABLET PO SCH (08:52)
[2017-10-17] MEDS: NEURONTIN PO SCH ×3 (08:53→20:32)
--- NOTE | 2017-10-17 09:36 | DI ---
EXAM: Single view of the chest. History: Follow-up pneumonia Comparison: Chest radiograph 10/12/2017 Findings: Heart remains enlarged. Atherosclerotic vascular calcifications. Persistent but improvin g bibasilar lung infiltrates. Small bilateral pleural effusions. No pneumothorax. Visualized osseo us structures unchanged. Linear atelectasis again seen within the right midlung. Impression: Persistent but improving bibasilar lung infiltrates. Small bilateral pleural effusions.
--- NOTE | 2017-10-17 10:03 | PCM.PROG ---
Attending Provider: ATTENDING PROVIDER: Dr. JIGNA CALIX DATE OF SERVICE: 10/17/17 SUBJECTIVE: This 82 year old WHITE/ F was hospitalized 10/12/17. The patient is admitted with respiratory failure, which seems to have improved with improvement in oxygen saturation of more than 90%. Renal failure with little improvement; with aggressive diuretic therapy, BUN has gone up. The patient has been given 2 units of PRBCs and anemia is stable. No evidence of acute GI bleed but Pradaxa is on hold. PT is working with the patient. REVIEW OF SYSTEMS: CONSTITUTIONAL: No night sweats. No fatigue, malaise, lethargy. No fever or chills. HEENT: Eyes: No visual changes. No eye pain. No eye discharge. ENT: No runny nose. No epistaxis. No sinus pain. No odynophagia. No congestion. RESPIRATORY: No cough, no congestion. No hemoptysis. No shortness of breath. CARDIOVASCULAR: No angina symptoms. No CHF symptoms. No atypical chest pain for CAD. No palpitations. No orthopnea.. GASTROINTESTINAL: Appetite is better. No abdominal pain. No nausea or vomiting. No diarrhea or constipation. No hematemesis. No hematochezia. GENITOURINARY: No urgency. No frequency. No dysuria. No hematuria. No obstructive symptoms. No discharge. No pain. No significant abnormal bleeding. MUSCULOSKELETAL: No musculoskeletal pain; no joint swelling. NEUROLOGICAL: Sleepy; mental status has improved but is still confused at times. No headache. No neck pain. No syncope. No seizures. No dizziness. PSYCHIATRIC: Not anxious. No depression. No suicidal thoughts. No homicidal thoughts. SKIN: No rash. No lesions. No wounds. ENDOCRINE: No unexplained weight loss. No weight gain. HEMATOLOGIC/LYMPHATIC: No anemia. No purpura. No petechiae. No prolonged or excessive bleeding. No palpable lymph nodes. PHYSICAL EXAMINATION: GENERAL: The patient is sleepy, resting comfortably in chair in no distress. VITAL SIGNS: Temperature 97.4 F, Pulse 87, Respiratory Rate 14, BP 150/90, Pulse Ox 97% HEENT: Head normocephalic, atraumatic. Eyes: Extraocular muscles are intact. Pupils are equal, round and reactive to light and accommodation. Ears: No lesions. Nose appeared normal. Throat: No exudate or erythema. NECK: Supple. No JVD, no carotid bruit. No lymphadenopathy or thyromegaly. LUNGS: Decreased breath sounds with no wheeze. Trace edema. Clear to auscultation. Percussion note normal. Chest symmetrical. HEART: S1, S2, no S3. No murmurs. No cyanosis or clubbing. No ascites. Pulses: Dorsalis pedis and posterior tibial pulses +1 to +2 both sides. ABDOMEN: Soft. Non-tender. Bowel sounds active. No CVA tenderness. No mass felt. EXTREMITIES: No edema. Full range of motion of all extremities, equal. NEUROLOGIC: No focal deficit. Cranial nerves II through XII are grossly intact. No headache, no double vision or headache. SKIN: Warm and dry. Intact. Turgor-normal. LYMPHATIC: No palpable lymph nodes/no lymphedema. MUSCULOSKELETAL: Normal joints with no swelling. Muscle tone is normal. LAB REVIEW: 10/17/17 05:00 10/17/17 05:00 10/17/17 05:00: Sodium 141, Potassium 3.4 L, Chloride 95 L, Carbon Dioxide 34 H , Anion Gap 15.4, BUN 61 H*, Creatinine 1.90 H, Estimated GFR (MDRD) 25.00, BUN/ Creatinine Ratio 32.10, Glucose 174 H, Calcium 8.7, Total Bilirubin 0.4, AST 37 D, ALT 47, Alkaline Phosphatase 58, Total Protein 6.3, Albumin 2.9 L, Globulin 3.4, Albumin/Globulin Ratio 0.85 10/17/17 05:00: WBC 7.49, RBC 3.75 L, Hgb 11.6 L, Hct 35.2 L, MCV 93.9, MCH 30.9 , MCHC 33.0, RDW Coeff of James 16.3 H, Plt Count 250, Immature Gran % (Auto) 1.6 , Neut % (Auto) 85.4, Lymph % (Auto) 9.2 L, [place] % (Auto) 3.7, Eos % (Auto) 0.0 , Baso % (Auto) 0.1, Immature Gran # (Auto) 0.1, Neut # 6.4, Lymph # 0.7, [place] # 0.3 L, Eos # 0.0, Baso # 0.0 ASSESSMENT: 1. Respiratory failure improved. 2. Anemia, stable with 2 units of PRBCs given. No evidence of GI bleed. 3. Renal failure 4. Mild dementia PLAN: 1. Potassium low, will give K-Tab 20 mEq b.i.d. 2. Decrease Lasix to 20 mg p.o. daily 3. Elevate legs 4. Up and about with help Plan and coordination of the patient's care discussed in the presence of Rubber Press Operator and nurse. CONDITION: Stable SCRIBED BY: EDWIN EMERSON Box Spring Maker scribed while in presence of service performed by Dr. JIGNA CALIX on 10/17/17 ([id number])
[2017-10-17] MEDS: MICRO-K CAP PO SCH (11:19)
--- NOTE | 2017-10-17 15:20 | RS.SLPCNOT ---
Speech Case Note Date of Note: 10/17/17 Title: Cognitive assessment Note: BAND MAKER was consulted to screen cognitive skills. PT and nursing both reported changes in cognition from prior hospitalization in late September 2017. Memory, following directions, and sequencing skills were reported deficits. The BAND MAKER screened pt at the bedside with the SLUMS. She obtained 10/30 points on the assessmentl; which indicates dementia range. Deficits on the assessment included : problem solving, immediate and short-term memory recall, verbal sequencing, thought organization, executive functioning, and auditory comprehension. The BAND MAKER recommends skilled ST for cognitive therapy.
[2017-10-17] MEDS: NORVASC PO SCH (20:32)
[2017-10-17] MEDS: ATIVAN PO SCH (20:32)
[2017-10-17] MEDS: ROCEPHIN 1 GM in SODIUM CHLORIDE 50 ML IV SCH (20:32)
[2017-10-18] MEDS: XOPENEX 1.25 MG NEB SCH ×5 (00:48→23:00)
[2017-10-18] MEDS: HUMULIN R SUBCUT PRN ×4 (06:19→21:32)
[2017-10-18] MEDS: CLEOCIN PO SCH ×3 (06:20→21:32)
[2017-10-18] MEDS: PRILOSEC PO SCH (06:20)
[2017-10-18] MEDS: LASIX TAB PO SCH (06:20)
[2017-10-18] MEDS: SOLU-MEDROL 125 MG IVP SCH (06:21)
[2017-10-18] MEDS: MULTIVITAMIN TABLET PO SCH (08:27)
[2017-10-18] MEDS: K-DUR PO SCH ×2 (08:27→16:33)
[2017-10-18] MEDS: NEURONTIN PO SCH ×3 (08:27→21:31)
[2017-10-18] MEDS: ASPIRIN EC PO SCH (08:27)
[2017-10-18] MEDS: FERROUS SULFATE PO SCH (08:27)
[2017-10-18] MEDS: LOPRESSOR PO SCH ×2 (08:27→16:34)
[2017-10-18] MEDS: BENICAR PO SCH (08:28)
[2017-10-18] MEDS: BACTROBAN TP SCH ×2 (08:28→21:36)
--- NOTE | 2017-10-18 10:02 | PCM.PROG ---
Attending Provider: ATTENDING PROVIDER: Dr. JIGNA CALIX This patient is seen with Araceli Montgomery, Nurse Practitioner. DATE OF SERVICE: 10/18/17 SUBJECTIVE: This 82 year old WHITE/ F was hospitalized 10/12/17. The patient is resting comfortably in chair. Anticipaote discharge to [facility] tomorrow. REVIEW OF SYSTEMS: CONSTITUTIONAL: Weakness. No night sweats. No malaise, lethargy. No fever or chills. HEENT: Eyes: No visual changes. No eye pain. No eye discharge. ENT: No runny nose. No epistaxis. No sinus pain. No odynophagia. No congestion. RESPIRATORY: No cough, no congestion. No hemoptysis. Positive for shortness of breath. CARDIOVASCULAR: Positive for leg edema. No angina symptoms. No CHF symptoms. No atypical chest pain for CAD. No palpitations. No orthopnea. GASTROINTESTINAL: No abdominal pain. No nausea or vomiting. No diarrhea or constipation. No hematemesis. No hematochezia. GENITOURINARY: No urgency. No frequency. No dysuria. No hematuria. No obstructive symptoms. No discharge. No pain. No significant abnormal bleeding. MUSCULOSKELETAL: No musculoskeletal pain; no joint swelling. NEUROLOGICAL: Awake, alert, oriented to time, place and person. No headache. No neck pain. No syncope. No seizures. No dizziness. PSYCHIATRIC: Not anxious. No depression. No suicidal thoughts. No homicidal thoughts. SKIN: No rash. No lesions. Blister on right foot is improving; redness is improved. ENDOCRINE: No unexplained weight loss. No weight gain. HEMATOLOGIC/LYMPHATIC: No anemia. No purpura. No petechiae. No prolonged or excessive bleeding. No palpable lymph nodes. PHYSICAL EXAMINATION: GENERAL: The patient is sleepy, sitting in chair in no distress. VITAL SIGNS: Temperature 97.9 F, Pulse 96, Respiratory Rate 20, BP 140/78, Pulse Ox 94% HEENT: Head normocephalic, atraumatic. Eyes: Extraocular muscles are intact. Pupils are equal, round and reactive to light and accommodation. Ears: No lesions. Nose appeared normal. Throat: No exudate or erythema. NECK: Supple. No JVD, no carotid bruit. No lymphadenopathy or thyromegaly. LUNGS: Diminished breath sounds. Clear to auscultation. Percussion note normal. Chest symmetrical. HEART: Irregular heart rate. S1, S2, no S3. No murmurs. No cyanosis or clubbing. No ascites. Pulses: Dorsalis pedis and posterior tibial pulses +1 to +2 both sides. ABDOMEN: Soft. Non-tender. Bowel sounds active. No CVA tenderness. No mass felt. EXTREMITIES: Trace leg edema left greater than right. Full range of motion of all extremities, equal. NEUROLOGIC: No focal deficit. Cranial nerves II through XII are grossly intact. No headache, no double vision or headache. SKIN: Not dry. Intact. Turgor-normal. Blister on right foot improving; redness is improved. LYMPHATIC: No palpable lymph nodes/no lymphedema. MUSCULOSKELETAL: Normal joints with no swelling. Muscle tone is normal. LAB REVIEW: 10/18/17 04:30 10/18/17 04:30 10/18/17 04:30: Sodium 142, Potassium 3.6, Chloride 96 L, Carbon Dioxide 34 H, Anion Gap 15.6, BUN 65 H*, Creatinine 1.78 H, Estimated GFR (MDRD) 27.00, BUN/ Creatinine Ratio 36.51, Glucose 187 H, Calcium 8.6, Total Bilirubin 0.4, AST 20 , ALT 38, Alkaline Phosphatase 60, Total Protein 5.9, Albumin 2.7 L, Globulin 3.2, Albumin/Globulin Ratio 0.84 10/18/17 04:30: WBC 7.40, RBC 3.76 L, Hgb 11.6 L, Hct 35.1 L, MCV 93.4, MCH 30.9 , MCHC 33.0, RDW Coeff of James 16.2 H, Plt Count 259, Immature Gran % (Auto) 1.9 , Neut % (Auto) 86.8, Lymph % (Auto) 7.0 L, [place] % (Auto) 4.2, Eos % (Auto) 0.0 , Baso % (Auto) 0.1, Immature Gran # (Auto) 0.1, Neut # 6.4, Lymph # 0.5 L, [place] # 0.3 L, Eos # 0.0, Baso # 0.0 ASSESSMENT: 1. LEG EDEMA, IMPROVING 2. HYPERTENSION 3. ANEMIA 4. CHRONIC KIDNEY DISEASE 5. COPD 6. ATRIAL FIB PLAN: 1. D/C Solu-Medrol then start Prednisone 20 mg b.i.d. 2. Keep legs elevated Plan and coordination of the patient's care discussed in the presence of Compliance Consultant and nurse. CONDITION: Stable SCRIBED BY: EDWIN EMERSON Floor Assembler scribed while in presence of service performed by Dr. Calix/Araceli Montgomery APRN on 10/18/17 ([id number])
--- NOTE | 2017-10-18 13:08 | PN ---
DATE OF SERVICE: 10/16/17 SUBJECTIVE: This patient was hospitalized with acute renal failure, severe anemia, respiratory failure. The patient's renal failure is subsiding, now she has chronic kidney disease, underlying. Her hydration status has improved. Appetite has improved. Respiratory failure is chronic now with oxygen saturation more than 90% on 2L. Her anemia is stable with hemoglobin 11 with hematocrit of 32, stable with no evidence of bleeding. The patient was seen and examined with the nurse practitioner. The patient's condition is stable. TIME SPENT: More than 30 minutes. Plan and coordination of the patient's care discussed in the presence of nurse. EB
[2017-10-18] MEDS: PREDNISONE PO SCH (16:34)
[2017-10-18] MEDS ORDERED: ATIVAN PO SCH ×2 (21:00)
[2017-10-18] MEDS ORDERED: PREDNISONE PO SCH (21:00)
[2017-10-18] MEDS: ROCEPHIN 1 GM in SODIUM CHLORIDE 50 ML IV SCH (21:29)
[2017-10-18] MEDS: NORVASC PO SCH (21:32)
[2017-10-19] MEDS: XOPENEX 1.25 MG NEB SCH ×2 (04:55→11:25)
[2017-10-19] MEDS: HUMULIN R SUBCUT PRN ×2 (05:35→12:25)
[2017-10-19] MEDS: LASIX TAB PO SCH (05:36)
[2017-10-19] MEDS: CLEOCIN PO SCH ×2 (05:36→12:35)
[2017-10-19] MEDS: PRILOSEC PO SCH (05:36)
[2017-10-19] MEDS ORDERED: LASIX TAB PO STA (08:04)
[2017-10-19] MEDS ORDERED: K-DUR PO STA (08:05)
[2017-10-19] MEDS: BENICAR PO SCH (09:08)
[2017-10-19] MEDS: NEURONTIN PO SCH (09:08)
[2017-10-19] MEDS: LOPRESSOR PO SCH (09:08)
[2017-10-19] MEDS: ASPIRIN EC PO SCH (09:09)
[2017-10-19] MEDS: FERROUS SULFATE PO SCH (09:09)
[2017-10-19] MEDS: PREDNISONE PO SCH (09:09)
[2017-10-19] MEDS: MULTIVITAMIN TABLET PO SCH (09:09)
[2017-10-19] MEDS: BACTROBAN TP SCH (09:09)
[2017-10-19] MEDS: K-DUR PO SCH (09:12)
--- NOTE | 2017-10-19 09:35 | PCM.PROG ---
Attending Provider: ATTENDING PROVIDER: Dr. JIGNA CALIX This patient is seen with Araceli Montgomery, Nurse Practitioner. DATE OF SERVICE: 10/19/17 SUBJECTIVE: This 82 year old WHITE/ F was hospitalized 10/12/17. The patient is sitting up in chair, is alert. Her legs are more swollen today. The patient will be discharged to [facility] today. The patient is agreeable. Kidney function slightly improved. REVIEW OF SYSTEMS: CONSTITUTIONAL: Positive for weakness. No night sweats. No malaise, lethargy. No fever or chills. HEENT: Eyes: No visual changes. No eye pain. No eye discharge. ENT: No runny nose. No epistaxis. No sinus pain. No odynophagia. No congestion. RESPIRATORY: No cough, no congestion. No hemoptysis. Shortness of breath. CARDIOVASCULAR: No angina symptoms. No CHF symptoms. No atypical chest pain for CAD. No palpitations. No orthopnea.. GASTROINTESTINAL: No abdominal pain. No nausea or vomiting. No diarrhea or constipation. No hematemesis. No hematochezia. GENITOURINARY: No urgency. No frequency. No dysuria. No hematuria. No obstructive symptoms. No discharge. No pain. No significant abnormal bleeding. MUSCULOSKELETAL: No musculoskeletal pain; no joint swelling. NEUROLOGICAL: Awake, alert, oriented to time, place and person. No headache. No neck pain. No syncope. No seizures. No dizziness. PSYCHIATRIC: Not anxious. No depression. No suicidal thoughts. No homicidal thoughts. SKIN: No rash. No lesions. Blister on right foot. ENDOCRINE: No unexplained weight loss. No weight gain. HEMATOLOGIC/LYMPHATIC: No anemia. No purpura. No petechiae. No prolonged or excessive bleeding. No palpable lymph nodes. PHYSICAL EXAMINATION: GENERAL: The patient is awake, alert and oriented, sitting in chair in no distress. VITAL SIGNS: Temperature 98.4 F, Pulse 97, Respiratory Rate 16, BP 125/77, Pulse Ox 2% HEENT: Head normocephalic, atraumatic. Eyes: Extraocular muscles are intact. Pupils are equal, round and reactive to light and accommodation. Ears: No lesions. Nose appeared normal. Throat: No exudate or erythema. NECK: Supple. No JVD, no carotid bruit. No lymphadenopathy or thyromegaly. LUNGS: Diminished breath sounds. Clear to auscultation. Percussion note normal. Chest symmetrical. HEART: Irregular heart rate. S1, S2, no S3. No murmurs. No cyanosis or clubbing. No ascites. Pulses: Dorsalis pedis and posterior tibial pulses +1 to +2 both sides. ABDOMEN: Soft. Non-tender. Bowel sounds active. No CVA tenderness. No mass felt. EXTREMITIES: Leg edema +2 bilaterally. Full range of motion of all extremities , equal. NEUROLOGIC: No focal deficit. Cranial nerves II through XII are grossly intact. No headache, no double vision or headache. SKIN: Not dry. Scabbed blister right foot with clear drainage. Turgor-normal. LYMPHATIC: No palpable lymph nodes/no lymphedema. MUSCULOSKELETAL: Normal joints with no swelling. Muscle tone is normal. LAB REVIEW: 10/19/17 04:30 10/19/17 04:30 10/19/17 04:30: Sodium 143, Potassium 3.4 L, Chloride 97 L, Carbon Dioxide 35 H , Anion Gap 14.4, BUN 61 H*, Creatinine 1.68 H, Estimated GFR (MDRD) 29.00, BUN/ Creatinine Ratio 36.30, Glucose 211 H, Calcium 8.4, Total Bilirubin 0.3, AST 15 , ALT 30, Alkaline Phosphatase 54, Total Protein 5.3 L, Albumin 2.6 L, Globulin 2.7, Albumin/Globulin Ratio 0.96 10/19/17 04:30: WBC 7.81, RBC 3.60 L, Hgb 10.9 L, Hct 33.8 L, MCV 93.9, MCH 30.3 , MCHC 32.2, RDW Coeff of James 16.0 H, Plt Count 262, Immature Gran % (Auto) 2.8 , Neut % (Auto) 76.3, Lymph % (Auto) 10.6, [place] % (Auto) 9.9, Eos % (Auto) 0.0, Baso % (Auto) 0.4, Immature Gran # (Auto) 0.2, Neut # 6.0, Lymph # 0.8, [place] # 0.8, Eos # 0.0, Baso # 0.0 ASSESSMENT: 1. LEG EDEMA, IMPROVING 2. HYPERTENSION 3. ANEMIA 4. CHRONIC KIDNEY DISEASE 5. COPD 6. ATRIAL FIB PLAN: 1. Discharge to [facility] for Physical and Occupational Therapy; the patient is agreeable 2. Extra 40 Siva of potassium 3. Continue sliding scale insulin t.i.d. 4. Keflex 500 mg t.i.d. for 5 days 5. Prednisone 20 mg daily times 5 days, then 10 daily for 5 days 6. Continue Bactroban 7. Ativan 0.5 mg 8. Lasix 40 mg daily, extra 20 mg this morning before discharge 9. Keep legs elevated 10. Repeat CBC, CMP on Sunday Plan and coordination of the patient's care discussed in the presence of Card Fixer and nurse. CONDITION: stable SCRIBED BY: EDWIN EMERSON Network Systems Administrator scribed while in presence of service performed by Dr. Calix/Araceli Montgomery APRN on 10/19/17 ([id number])
[2017-10-19 10:08] VITALS: BP 146/82; TEMP 98
--- NOTE | 2017-10-19 10:20 | CM.DICTOOL ---
ADMISSION: 10/12/17 12:59 DISCHARGE: 2017 DATE OF SERVICE: 10/19/17 FINAL DIAGNOSIS RESPIRATORY FAILURE ANEMIA, TRANSFUSION 2 UNITS ACUTE RENAL FAILURE LEG EDEMA ATRIAL FIB (PRADAXA-HELD) CHF HYPERTENSION COPD GERD DIABETES MELLITUS, TYPE 2 HYPERLIPIDEMIA FORMER SMOKER ARTHRITIS UTI, GNR (SENT TO [facility] FOR ID AND NAOMY) HEALING BLISTER TO TOP OF RIGHT FOOT, PRESENT ON ADMISSION PARTIAL LEFT HIP ARTHROPLASTY (08/2017) BILATERAL CATARACT EXTRACTION CHOLECYSTECTOMY HYSTERECTOMY ECHOCARDIOGRAM SEP, 2017: LVEF 67% ENLARGED LEFT ATRIAL AND RIGHT VENTRICLE CAVITIES LAST VITALS Temp Pulse Resp BP Pulse Ox 98.4 F 97 H 16 125/77 2 L 10/19/17 06:08 10/19/17 06:08 10/19/17 06:08 10/19/17 06:08 10/19/17 06:08 ACTIVE HOME MEDICATIONS Amlodipine Besylate (Norvasc) 5 mg PO BEDTIME [facility] Last Admin: 10/18/17 21:32 Dose: 5 mg Aspirin (Aspirin Ec) 81 mg PO DAILYWM [facility] Last Admin: 10/19/17 09:09 Dose: 81 mg Ferrous Sulfate (Ferrous Sulfate) 324 mg PO DAILY [facility] Last Admin: 10/19/17 09:09 Dose: 324 mg Furosemide (Lasix Tab) 40 mg PO QDAC [facility] Last Admin: 10/19/17 05:36 Dose: 20 mg Gabapentin (Neurontin) 100 mg PO TID [facility] Last Admin: 10/19/17 09:08 Dose: 100 mg Lorazepam (Ativan) 0.5 mg PO BEDTIME [facility] Last Admin: 10/18/17 21:32 Dose: 0.5 mg (DOSE DECREASED) Metoprolol Tartrate (Lopressor) 100 mg PO BIDWM [facility] Last Admin: 10/19/17 09:08 Dose: 100 mg Multivitamins (Multivitamin Tablet) 1 tab PO DAILY [facility] Last Admin: 10/19/17 09:09 Dose: 1 tab Mupirocin (Bactroban) 1 applic TP BID [facility] Last Admin: 10/19/17 09:09 Dose: 1 applic Olmesartan (Benicar) 40 mg PO DAILY [facility] Last Admin: 10/19/17 09:08 Dose: 40 mg Omeprazole (Prilosec) 20 mg PO QDAC [facility] Last Admin: 10/19/17 05:36 Dose: 20 mg Potassium Chloride (K-Dur) 20 meq PO BIDWM [facility] Last Admin: 10/19/17 09:12 Dose: Not Given ALLERGIES atorvastatin [From Lipitor] Adverse Reaction (Unknown, Verified 10/12/17 10:37) ezetimibe [From Zetia] Adverse Reaction (Unknown, Verified 10/12/17 10:37) glimepiride Adverse Reaction (Unknown, Verified 10/12/17 10:37) rosuvastatin [From Crestor] Adverse Reaction (Unknown, Verified 10/12/17 10:37) NEW PRESCRIPTIONS: LORAZEPAM 0.5 MG AT BEDTIME (PRESCRIPTION SENT TO [facility]) NEW MEDICATIONS KEFLEX 500 MG TID FOR 5 DAYS CLINDAMYCIN 150 MG EVERY 8 HOURS FOR 5 DAYS XOPENEX NEBS 1.25 MG BID PREDNISONE 20 MG DAILY FOR 5 DAYS, THEN 10 MG DAILY FOR 5 DAYS REGULAR INSULIN TID FOR ACCU-CHECK RESULTS: 141-200=3 UNITS 201-260=4 UNITS 261-320=6 UNITS 321-400=8 UNITS 400-600=15 UNITS CALL MD IF GREATER THAN 600 MEDICATIONS THAT HAVE BEEN DISCONTINUED METFORMIN 500 MG BID PRADAXA 150 MG BID HYDROCHLOROTHIAZIDE 12.5 MG SMOKING: NOT APPLICABLE DISEASE SPECIFIC EDUCATION: IMPORTANCE OF ELEVATING LEGS COPD NUTRITION LAB REVIEW: 10/19/17 04:30 10/19/17 04:30 10/19/17 04:30: Sodium 143, Potassium 3.4 L, Chloride 97 L, Carbon Dioxide 35 H , Anion Gap 14.4, BUN 61 H*, Creatinine 1.68 H, Estimated GFR (MDRD) 29.00, BUN/ Creatinine Ratio 36.30, Glucose 211 H, Calcium 8.4, Total Bilirubin 0.3, AST 15 , ALT 30, Alkaline Phosphatase 54, Total Protein 5.3 L, Albumin 2.6 L, Globulin 2.7, Albumin/Globulin Ratio 0.96 10/19/17 04:30: WBC 7.81, RBC 3.60 L, Hgb 10.9 L, Hct 33.8 L, MCV 93.9, MCH 30.3 , MCHC 32.2, RDW Coeff of James 16.0 H, Plt Count 262, Immature Gran % (Auto) 2.8 , Neut % (Auto) 76.3, Lymph % (Auto) 10.6, [place] % (Auto) 9.9, Eos % (Auto) 0.0, Baso % (Auto) 0.4, Immature Gran # (Auto) 0.2, Neut # 6.0, Lymph # 0.8, [place] # 0.8, Eos # 0.0, Baso # 0.0 PLAN: DISCHARGE TO [facility] DIET: CONSISTENT CARBOHYDRATES DIETITIAN TO CONSULT FOR OPTIMAL NUTRITIONAL INTAKE ACTIVITY: UP TO DINING ROOM FOR MEALS. MAY BE UP TO CHAIR. ELEVATE LEGS ABOVE THE LEVEL OF THE HIPS WHEN SITTING IN THE CHAIR AND WHEN IN BED ELEVATE HEAD OF BED FOR COMFORT OXYGEN PER NASAL CANNULA AT 2 LITERS XOPENEX NEBS 1.25 MG BID VITAL SIGNS DAILY FOR 1 WEEK, THEN WEEKLY WEIGH WEEKLY OXYGEN SATURATION DAILY FOR 1 WEEK PHYSICAL THERAPY EVALUATION OCCUPATIONAL THERAPY EVALUATION SPEECH THERAPY EVALUATION DNR CBC, CMP ON AND THEN EVERY 2 WEEKS ACCU-CHECKS TID (MORNING, NOON AND AT SUPPER DAILY) BACTROBAN TO TOP OF RIGHT FOOT BID THE PATIENT TO BE SEEN ON [facility] ROUNDS IN 7-10 DAYS BY JEANETTE QUIROGA APRN. MS. BAINS IS ALERT AND ORIENTED X 3. SHE IS FORGETFUL AT TIMES AND HAS DIFFICULTY REMEMBERING DATES AND SEQUENCE OF EVENTS. SHE WEARS OXYGEN CONTINUOUSLY AT 2 LITERS WITH SATURATIONS IN THE MID TO UPPER 90'S. NOTED 2+ PITTING EDEMA TO THE LOWER EXTREMITIES. SHE IS COMPLIANT WITH ELEVATING HER LEGS WHEN SITTING IN THE CHAIR. SHE DENIES ABDOMINAL PAIN OR NAUSEA. MEAL INTAKES ARE GOOD AT 50-100%. SHE IS CONTINENT OF BOWEL AND BLADDER. LAST BOWEL MOVEMENT ON 10-18-2017. MS. BAINS TRANSFERS TO THE BEDSIDE COMMODE WITH ASSISTANCE OF 1 STAFF MEMBER. SHE IS AMBULATORY WITH USE OF OXYGEN, GAIT BELT, ROLLING WALKER AND ASSISTANCE OF 2 STAFF MEMBERS. HER GAIT IS SLOW WITH OCCASIONAL LOSS OF BALANCE NOTED. SHE IS NOTED TO REQUIRE VERBAL CUES FOR PROPER SEQUENCING OF STEPS. SKIN IS INTACT EXCEPT FOR A HEALING BLISTER TO THE TOP OF THE RIGHT FOOT. PARTIAL SCABBING OF THE BLISTER IS NOTED , REDNESS HAS SUBSIDED. JIGNA CALIX MD JEANETTE QUIROGA APRN
--- NOTE | 2017-10-19 11:25 | PN ---
DATE OF SERVICE: 10/18/17 SUBJECTIVE: The patient's condition is stable. She is sleepy as usual. The kidney functions , anemia and respiratory status has been stabilizing. She has multiple medical problems and needs the care of care home. At home the daughters are unable to take care of her. PHYSICAL EXAMINATION: HEENT: Head normocephalic, atraumatic. Eyes: Extraocular muscles are intact. Pupils are equal, round and reactive to light and accommodation. Ears: No lesions. Nose appeared normal. Throat: No exudate or erythema. NECK: Supple. No JVD, no carotid bruit. No lymphadenopathy or thyromegaly. LUNGS: Decreased breath sounds. Clear to auscultation. Percussion note normal. Chest symmetrical. HEART: S1, S2, no S3. No murmurs. No cyanosis or clubbing. No ascites. Pulses: Dorsalis pedis and posterior tibial pulses +1 to +2 both sides. ABDOMEN: Soft. Nontender. Bowel sounds active. No CVA tenderness. No mass felt. EXTREMITIES: Trace to 1+ pitting edema it is dependant. Full range of motion of all extremities, equal. NEUROLOGIC: No focal deficit. Cranial nerves II through XII are grossly intact. No headache, no double vision or headache. SKIN: Not dry. Intact. Turgor - normal. LYMPHATIC: No palpable lymph nodes/no lymphedema. MUSCULOSKELETAL: Normal joints with no swelling. Muscle tone is normal. PLAN: 1. The patient is agreeable to go to the care home. The patient was seen and examined with Nurse Practitioner. TIME SPENT: More than 30 minutes. Plan and coordination of the patient's care discussed in the presence of nurse. EB
--- NOTE | 2017-10-22 14:29 | PN ---
DATE OF SERVICE: 10/19/17 SUBJECTIVE: The patient was seen and examined today with nurse practitioner. The patient is up and about with help. She is feeling a lot better. PHYSICAL EXAMINATION: HEENT: Head normocephalic, atraumatic. Eyes: Extraocular muscles are intact. Pupils are equal, round and reactive to light and accommodation. Ears: No lesions. Nose appeared normal. Throat: No exudate or erythema. NECK: Supple. No JVD, no carotid bruit. No lymphadenopathy or thyromegaly. LUNGS: Decreased breath sounds but clear to auscultation. Percussion note normal. Chest symmetrical. HEART: S1, S2, no S3. No murmurs. No cyanosis or clubbing. No ascites. Pulses: Dorsalis pedis and posterior tibial pulses +1 to +2 both sides. ABDOMEN: Soft. Nontender. Bowel sounds active. No CVA tenderness. No mass felt. EXTREMITIES: No edema. Full range of motion of all extremities, equal. NEUROLOGIC: No focal deficit. Cranial nerves II through XII are grossly intact. No headache, no double vision or headache. SKIN: Not dry. Intact. Turgor - normal. LYMPHATIC: No palpable lymph nodes/no lymphedema. MUSCULOSKELETAL: Normal joints with no swelling. Muscle tone is normal. ASSESSMENT: The patient's medical status is stable. Her renal functions have improved some. She has multiple medical problems. She had anemia, which required blood transfusion. The patient's family declined any further workup in the way of EGD or colonoscopy or referral to tire buffer. The patient also wanted to wait until her medical condition improves. At the present time they flatly refused any further investigations. [facility] TIME SPENT: More than 30 minutes. Plan and coordination of the patient's care discussed in the presence of nurse. EB
--- NOTE | 2017-10-22 14:31 | PN ---
CODING FOR BILLIN10/12/17 LEVEL 5 10/13/17 EXTENSIVE 10/14/17 INTERMEDIATE 10/15/17 INTERMEDIATE 10/16/17 INTERMEDIATE 10/17/17 INTERMEDIATE 10/18/17 INTERMEDIATE 10/19/17 DISCHARGE MTDD
--- NOTE | 2017-11-15 13:21 | DS ---
DATE OF SERVICE: 10/19/17 FINAL DIAGNOSIS: 1. RESPIRATORY FAILURE 2. ANEMIA, TRANSFUSION 2 UNITS 3. ACUTE RENAL FAILURE 4. LEG EDEMA 5. ATRIAL FIBRILLATION (PRADAXA - HELD) 6. CHF 7. HYPERTENSION 8. COPD 9. GERD 10. DIABETES MELLITUS, TYPE 2 11. HYPERLIPIDEMIA 12. FORMER SMOKER 13. ARTHRITIS 14. UTI, GNR (SENT TO [facility] FOR ID AND NAOMY) 15. HEALING BLISTER TO TOP OF RIGHT FOOT, PRESENT ON ADMISSION 16. PARTIAL LEFT HIP ARTHROPLASTY (08/2017) 17. BILATERAL CATARACT EXTRACTION 18. CHOLECYSTECTOMY 19. HYSTERECTOMY 20. ECHOCARDIOGRAM SEP 2017 21. LVEF 67% 22. ENLARGED LEFT ATRIAL AND RIGHT VENTRICLE CAVITIES DISCHARGE INSTRUCTIONS: 1. Followup appointment: The patient is to be seen on retirement rounds in 7 to 10 days by Araceli Montgomery APRN. 2. Oxygen per nasal cannula at 2L 3. Xopenex nebs 1.25 mg b.i.d. 4. Vital signs daily for 1 week then weekly 5. Weigh weekly 6. Oxygen saturation daily for 1 week 7. Physical and Occupational Therapy evaluation 8. Speech therapy evaluation 9. DNR 10. CBC, CMP on 10/22/17 and then every 2 weeks 11. Accu-Cheks t.i.d. (morning, noon and at supper daily) 12. Bactroban to top of right foot b.i.d. MEDICATIONS AT DISCHARGE: Norvasc 5 mg p.o. bedtime NATALYA Aspirin 81 mg p.o. daily with meal NATALYA Ferrous Sulfate 324 mg p.o. daily NATALYA Lasix 40 mg p.o. q.d a.c. NATALYA Neurontin 100 mg p.o. t.i.d. NATALYA Ativan 0.5 mg p.o. bedtime NATALYA Lopressor 100 mg p.o. b.i.d. with meal NATALYA Multivitamin one tab p.o. daily NATALYA Bactroban one application TP b.i.d. NATALYA Benicar 40 mg p.o. daily NATALYA Prilosec 20 mg p.o. q.d a.c. NATALYA K-Dur 20 mEq p.o. b.i.d. with meal NATALYA NEW PRESCRIPTIONS: Lorazepam 0.5 mg at bedtime (prescription sent to retirement) Keflex 500 mg t.i.d. for 5 days Clindamycin 150 mg every 8 hours for 5 days Xopenex nebs 1.25 mg b.i.d. Prednisone 20 mg daily for 5 days, then 10 mg daily for 5 days Regular Insulin t.i.d. for Accu-Check results: 141-200=3 units 201-260=4 units 261-320=6 units 321-400=8 units 400-600=15 units Call M.D. if greater than 600 MEDICATION CHANGES: Medications that have been discontinued: Metformin 500 mg b.i.d. Pradaxa 150 mg b.i.d. Hydrochlorothiazide 12.5 mg DIET INSTRUCTIONS: Consistent carbohydrates ACTIVITY: Up to dining room for meals; may be up to chair. Elevate legs above the level of the hips when sitting in the chair and when in bed. Elevate head of bed for comfort. SMOKING: N/A DISEASE SPECIFIC EDUCATION: Importance of elevating legs COPD Nutrition HOSPITAL COURSE: This is an 82-year-old white female who had currently been residing at home after she was released from the retirement. She was brought in with shortness of breath, leg edema. In the ER her hemoglobin was found to be at 7.7. She recently had been on Pradaxa due to her history of atrial fibrillation. She has a history of CHF and chronic lung disease for which she is on continuous oxygen. Her initial p02 on ABGs showed oxygen in the 50's. She was admitted. We held her Pradaxa due to her hemoglobin. She was transfused two units of packed red blood cells. Chest x-ray revealed slight pulmonary edema, no pneumonia or changes associated with chronic lung disease. Her kidney function was elevated as she does have chronic kidney disease. She was in acute renal failure, started slow IV fluids at 50 cc/hr D5 1/2 NS. I gave her 40 mg of IV Lasix. Her leg swelling improved after the first 24 hours as well as her shortness of breath and breathing. She was pale, cool and clammy on admission after the blood transfusion. She looked remarkably better. She was placed in the Special Care Unit. On admission she had a blister on the dorsal aspect of her right foot which would worsen and ooze clear drainage with increased leg edema and then would improve as her leg edema improved. Two days ago she did start developing some erythema around the blister so we started her on Clindamycin 150 mg p.o. t.i.d. She has been on Rocephin 1 gm IV daily and UA was abnormal. The culture is still pending showing gram negative rods. Again, she has been on Rocephin 1 gm IV daily since admission along with Solu-Medrol 125 mg q.8hr IV. She most recently had an echo in September of 2017 showing ejection fraction of 67 % with enlarged left atrial and right ventricle cavities. She does remain in fib off and on but her rate has been controlled. Today, on day of discharge, temperature 98.4, heart rate 97, respirations 16, blood pressure 125/77, pulse ox 93% on 2L. Due to generalized weakness and deteriorating health, she does have a history of confusion for which she is on Namenda. This has worsened since she had had her left hip replacement in August. She is becoming increasingly more forgetful, has had more falls at home, is weak. The family has decided that she will be discharged to [facility]. She is to keep her legs elevated above the hips when sitting. SHe is going to be discharged on 40 mg of Lasix p.o. daily and will get Ativan 0.5 mg at bedtime. Since receiving the two units, her hemoglobin has been stable between 11.5 and 11.7. Today on day of discharge, it is 11.7. Her shortness of breath is baseline for her. She does wear oxygen but she is satting well. She is in no acute distress. Her kidney function is slightly improved although was abnormal but is back to baseline for her. Today, with a BUN of 60 and creatinine of 1.68 which are both improved from yesterday. We will discharged her home on Keflex, Prednisone, Lasix, Clindamycin, Bactroban to the [facility] and I will follow up with her in the retirement. We will continue to hold her Pradaxa due to the recent possible GI bleed, anemic episode. The family has decided that they do not want the risk of bleeding with the Pradaxa so that they do not want to give it at this time. The risks of atrial fibrillation and clot have been discussed in detail. TIME SPENT: More than 60 minutes. EB
== END 2017-10-19 13:50 | DRG 189 ==
LOC: ED 10:28 → SCU 12:59
PROVIDERS: ADMIT Internal Medicine; ATTEND Internal Medicine
PROC: 30253N1 (ICD-10-PCS; principal; 2017-10-12)
DX: J96.02 Acute respiratory failure with hypercapnia (principal); N17.9 Acute kidney failure, unspecified; N39.0 Urinary tract infection, site not specified; D64.9 Anemia, unspecified; I48.91 Unspecified atrial fibrillation; R60.9 Edema, unspecified; I50.9 Heart failure, unspecified; I10 Essential (primary) hypertension; J44.9 Chronic obstructive pulmonary disease, unspecified; K21.9 Gastro-esophageal reflux disease without esophagitis; E11.9 Type 2 diabetes mellitus without complications; Z79.84 Long term (current) use of oral hypoglycemic drugs; E78.5 Hyperlipidemia, unspecified; Z87.891 Personal history of nicotine dependence; M19.90 Unspecified osteoarthritis, unspecified site; R62.7 Adult failure to thrive; R53.1 Weakness; F41.9 Anxiety disorder, unspecified; M54.9 Dorsalgia, unspecified; S90.821A Blister (nonthermal), right foot, initial encounter; I51.7 Cardiomegaly
CPT/HCPCS: 36415; 36430; 80053; 81001; 82550; 82803; 82962; 84145; 84484; 85025; 86850; 86900; 86922; 87040; 87077; 87086; 87186; 93005; 93010; 94640; 94660; 96374; 96375; 99223; 99232; 99233; 99239; 99284

== ENCOUNTER 2017-10-25 17:07 | Outpatient (CLI) | END 2017-10-25 17:08 | disposition home or self-care (01) | LOC: NONPT 17:07 | PROVIDERS: ATTEND Internal Medicine | DX: D64.9 Anemia, unspecified (principal); E11.9 Type 2 diabetes mellitus without complications; E87.6 Hypokalemia; I10 Essential (primary) hypertension; N19 Unspecified kidney failure | CPT/HCPCS: 87493 ==

== ENCOUNTER 2017-11-26 12:24 | Outpatient (CLI) | END 2017-11-26 12:25 | disposition home or self-care (01) | LOC: LAB 12:24 | PROVIDERS: ATTEND Internal Medicine | DX: R00.0 Tachycardia, unspecified (principal); R53.83 Other fatigue; Z86.79 Personal history of other diseases of the circulatory system | CPT/HCPCS: 36415; 80053; 85025 ==

== ENCOUNTER 2017-11-28 09:20 | Outpatient (CLI) | END 2017-11-28 09:21 | disposition home or self-care (01) | LOC: NONPT 09:20 | PROVIDERS: ATTEND Internal Medicine | DX: E87.5 Hyperkalemia (principal) | CPT/HCPCS: 80053; 85025 ==

== ENCOUNTER 2017-11-30 09:58 | Inpatient (IN) | payer OTHER ==
--- NOTE | 2017-11-30 10:02 | ED.PDOC ---
General ED Provider: Dr. CRUZ VELASCO Chief Complaint: Shortness of Air Stated Complaint: shortness of breath Time Seen by Physician: 10:00 (pt seen with HER NURSE AT ALL TIMES DNR ORDER RECOMFIRMED ) Information Source: Patient, Family Exam Limitations: No limitations (DOES NOT WISH TO BE INTUBATED ) Primary Care Provider: JIGNA CALIX Nursing and Triage Documentation Reviewed and Agree: Yes Reviewed sepsis parameters & appropriate labs ordered?: Yes System Inflammatory Response Syndrome: Not Applicable Sepsis Protocol: For patient's 13 years and over: Temp is 96.8 and below OR 101 and greater Pulse >90 BPM Resp >20/minute Acutely Altered Mental Status Are patient's symptoms suggestive of a new infection, such as: -Pneumonia -Skin, Soft Tissue -Endocarditis -UTI -Bone, Joint Infection -Implantable Device -Acute Abdominal Infection -Wound Infection -Meningitis -Blood Stream Catheter Infection -Unknown System Inflammatory Response Syndrome: Not Applicable (lives in a [place] [facility] short of air overnight) Respiratory Complaint Exam - Shortness of Air Complaint/Exam Onset/Duration: 1 day increased cough Symptoms Are: Still present Timing: Constant Initial Severity: Moderate Current Severity: Moderate Character: Reports: Dyspnea at rest, Dyspnea on exertion, Orthopnea Aggravating: Reports: Recumbent position Alleviating: Reports: Oxygen, Upright position Associated Signs and Symptoms: Reports: Cough, Wheezing. Denies: Chest pain with cough, Chest pain, Fever, Chills, Diaphoresis, Nasal congestion, Dizziness , Calf pain, Calf swelling, Edema, Rapid breathing, Labored breathing, Decreased intake Related History: Reports: Similar episode History of Healthcare-Acquired Pneumonia: No Pulmonary Embolism Risk Factors: Reports: Bedrest (was in hospital with pneumonia) Cardiac Risk Factors: Reports: CAD, Elevated lipids, Diabetes, Hypertension Pseudomonas Risk Factors: Reports: Chronic Lung Disease (on 02 at all times ) Tuberculosis Risk Factors: Reports: Communal living Home Oxygen Use: Yes Recent Stress Test: No Recent Echo/LV Function: Yes Respiratory Distress: Moderate Stridor Present: No Tracheal Deviation: No Subcutaneous Emphysema: No Accessory Muscle Use: No Retractions: Not Present Diminished Breath Sounds: Yes Prolonged Expiratory Phase: No Unable to Speak Full Sentences: No Fatigue: No Leg Swelling: No Damian's Sign Present: No Grunting Respirations: No Kussmaul Respirations: No Differential Diagnoses: Pulmonary Edema, COPD Exacerbation, Pneumonia, Bronchitis Quality Indicators for AMI: EKG in 10min. Quality Indicators for Cardiac Chest Pain: EKG in 10min. Quality Indicator For Non-Traumatic Chest Pain/Syncope: EKG Performed Quality Indicators For Pneumonia/CAP: Antibiotics in 6hr-admit, SpO2 assessed, Vital signs, Mental status assessed Review of Systems - Review Of Systems Constitutional: Reports: Chills, Malaise, Weakness, Loss of appetite Eyes: Reports: No symptoms Ears, Nose, Mouth, Throat: Reports: No symptoms Respiratory: Reports: Cough, Short of air, Wheezing Cardiac: Reports: No symptoms GI: Reports: No symptoms : Reports: No symptoms Musculoskeletal: Reports: No symptoms Skin: Reports: No symptoms Neurological: Reports: No symptoms Endocrine: Reports: No symptoms Hematologic/Lymphatic: Reports: No symptoms All Other Systems: Reviewed and Negative Past Medical History - Past Medical History Previously Healthy: Yes Endocrine: Reports: DM 2 Cardiovascular: Reports: Hypertension, A-Fib Respiratory: Reports: COPD Hematological: Reports: Anemia Gastrointestinal: Reports: GERD Genitourinary: Reports: None Neuro/Psych: Reports: None, Anxiety Musculoskeletal: Reports: Arthritis, Back Pain Cancer: Reports: None - Surgical History General Surgical History: Reports: None - Family History Family History: Reports: Heart, Hypertension, Diabetes, Stroke - Social History Smoking Status: Former smoker Hx Substance Use: No Alcohol Screening: None Physical Exam - Physical Exam Appearance: Ill-appearing Ill-appearing: Moderate Pain Distress: Mild Eyes: NANCY, EOMI, Conjunctiva clear ENT: Ears normal, Nose normal, Oropharynx normal Respiratory: Breath sounds diminished, Wheezes Cardiovascular: RRR, Pulses normal, No rub, No murmur GI/: Soft, Nontender, No masses, Bowel sounds normal, No Organomegaly Musculoskeletal: Normal strength, ROM intact, No edema, No calf tenderness Skin: Warm, Dry, Normal color Neurological: Sensation intact, Motor intact, Reflexes intact, Cranial nerves intact, Alert, Oriented Psychiatric: Affect appropriate, Mood appropriate Re-Evaluation - Re-Evaluation Time of Re-Evaluation: 11:38 Status: Improved Vital Signs Stable: Yes Pain Level: 0 Appearance: NAD Lungs: Clear Skin: Warm and Dry Neuro: Alert and Oriented X3 CV: RRR Additional Comments: JORGE PT'S DAUGHTER STATED PT NOT TO BE INTUBATED PT UNDERSTOOD WELL Critical Care Note - Critical Care Note Total Time (mins): 0 Course - Course Hematology/Chemistry: 11/30/17 10:15 11/30/17 10:15 Orders, Labs, Meds: Lab Review 11/30/17 11/30/17 11/30/17 10:07 10:15 10:15 WBC 9.99 RBC 3.10 L Hgb 9.7 L Hct 31.6 L MCV 101.9 H MCH 31.3 H MCHC 30.7 L RDW Coeff of James 17.7 H Plt Count 243 Immature Gran % (Auto) 0.7 Neut % (Auto) 80.9 Lymph % (Auto) 7.9 L [place] % (Auto) 9.0 Eos % (Auto) 0.8 Baso % (Auto) 0.7 Immature Gran # (Auto) 0.1 Neut # (Auto) 8.1 H Lymph # (Auto) 0.8 [place] # (Auto) 0.9 Eos # (Auto) 0.1 Baso # (Auto) 0.1 Puncture Site R brach O2 Saturation 79.0 L ABG pH 7.30 L ABG pCO2 74.0 H ABG pO2 50.0 L* ABG HCO3 36 H ABG Total CO2 38 H ABG Base Excess 9 H Matt Test + O2 Delivery Device Nc Oxygen Liter Flow 2.00 FiO2 % 28.0 Sodium 139 Potassium 4.0 Chloride 94 L Carbon Dioxide 31 Anion Gap 18.0 BUN 43 H Creatinine 2.06 H Estimated GFR (MDRD) 23.00 BUN/Creatinine Ratio 20.87 Glucose 250 H Calcium 9.0 Total Bilirubin 0.6 AST 24 ALT 27 Alkaline Phosphatase 62 Total Creatine Kinase 45 Troponin I 0.0200 B-Natriuretic Peptide Total Protein 7.0 Albumin 2.9 L Globulin 4.1 Albumin/Globulin Ratio 0.71 Procalcitonin Influ A Molecular Assay Influ B Molecular Assay 11/30/17 11/30/17 11/30/17 10:15 10:15 10:40 WBC RBC Hgb Hct MCV MCH MCHC RDW Coeff of James Plt Count Immature Gran % (Auto) Neut % (Auto) Lymph % (Auto) [place] % (Auto) Eos % (Auto) Baso % (Auto) Immature Gran # (Auto) Neut # (Auto) Lymph # (Auto) [place] # (Auto) Eos # (Auto) Baso # (Auto) Puncture Site O2 Saturation ABG pH ABG pCO2 ABG pO2 ABG HCO3 ABG Total CO2 ABG Base Excess Matt Test O2 Delivery Device Oxygen Liter Flow FiO2 % Sodium Potassium Chloride Carbon Dioxide Anion Gap BUN Creatinine Estimated GFR (MDRD) BUN/Creatinine Ratio Glucose Calcium Total Bilirubin AST ALT Alkaline Phosphatase Total Creatine Kinase Troponin I B-Natriuretic Peptide 548 H Total Protein Albumin Globulin Albumin/Globulin Ratio Procalcitonin 0.09 Influ A Molecular Assay Negative by naat Influ B Molecular Assay Negative by naat 11/30/17 11:00 WBC RBC Hgb Hct MCV MCH MCHC RDW Coeff of James Plt Count Immature Gran % (Auto) Neut % (Auto) Lymph % (Auto) [place] % (Auto) Eos % (Auto) Baso % (Auto) Immature Gran # (Auto) Neut # (Auto) Lymph # (Auto) [place] # (Auto) Eos # (Auto) Baso # (Auto) Puncture Site R rad O2 Saturation 98.0 ABG pH 7.30 L ABG pCO2 73.0 H ABG pO2 116.0 H ABG HCO3 36 H ABG Total CO2 38 H ABG Base Excess 10 H Matt Test + O2 Delivery Device bipap Oxygen Liter Flow FiO2 % 50.0 Sodium Potassium Chloride Carbon Dioxide Anion Gap BUN Creatinine Estimated GFR (MDRD) BUN/Creatinine Ratio Glucose Calcium Total Bilirubin AST ALT Alkaline Phosphatase Total Creatine Kinase Troponin I B-Natriuretic Peptide Total Protein Albumin Globulin Albumin/Globulin Ratio Procalcitonin Influ A Molecular Assay Influ B Molecular Assay Orders Category Date Time Status ABG DRAW REQUEST DAILY@0600 CARDIO 12/01/17 06:00 Ordered ABG DRAW REQUEST DAILY@0600 CARDIO 12/02/17 06:00 Ordered ABG DRAW REQUEST DAILY@0600 CARDIO 12/03/17 06:00 Ordered ABG DRAW REQUEST DAILY@0600 CARDIO 12/04/17 06:00 Ordered ABG DRAW REQUEST Stat CARDIO 11/30/17 10:07 Ordered ABG DRAW REQUEST Timed CARDIO 11/30/17 11:00 Ordered BIPAP Routine CARDIO 11/30/17 10:23 Ordered EKG-(ED ONLY) Stat CARDIO 11/30/17 10:06 Completed EKG-(IP & OP ONLY) DAILY CARDIO 12/01/17 06:00 Ordered EKG-(IP & OP ONLY) DAILY CARDIO 12/02/17 06:00 Ordered EKG-(IP & OP ONLY) DAILY CARDIO 12/03/17 06:00 Ordered NEBULIZER TREATMENT Stat CARDIO 11/30/17 10:04 Completed BLOOD GLUCOSE MONITORING ACCUCHECK Q6H CARE 11/30/17 11:35 Ordered GIVE HS SNACK 2100 CARE 11/30/17 11:36 Ordered INTAKE & OUTPUT Q8HR CARE 11/30/17 11:33 Ordered INTAKE & OUTPUT Q8HR CARE 11/30/17 11:35 Ordered ADA 1800 GET. DIET DIETARY 11/30/17 Lunch Ordered HS SNACK DIETARY 11/30/17 Dinner Ordered ED IV/MEDIPORT/POWERPORT .ONCE EMERGENCY 11/30/17 10:06 Active ABG DAILY@0600 LAB 12/01/17 06:00 Ordered ABG DAILY@0600 LAB 12/02/17 06:00 Ordered ABG DAILY@0600 LAB 12/03/17 06:00 Ordered ABG DAILY@0600 LAB 12/04/17 06:00 Ordered ABG Stat LAB 11/30/17 10:07 Completed ABG Stat LAB 11/30/17 11:00 Completed BLOOD CULTURE (ED ONLY) Stat LAB 11/30/17 10:15 Received BNP [B-TYPE NATRIURETIC PEPTIDE] Stat LAB 11/30/17 10:15 Completed CBC W/ AUTO DIFF Stat LAB 11/30/17 10:15 Completed COMPREHENSIVE METABOLIC PANEL Stat LAB 11/30/17 10:15 Completed CREATINE KINASE Q8H LAB 11/30/17 17:45 Ordered CREATINE KINASE Q8H LAB 12/01/17 01:45 Ordered CREATINE KINASE Stat LAB 11/30/17 10:15 Completed FLU A/B MOLECULAR Stat LAB 11/30/17 10:40 Completed PROCALCITONIN Stat LAB 11/30/17 10:15 Completed TROPONIN I Q8H LAB 11/30/17 17:45 Ordered TROPONIN I Q8H LAB 12/01/17 01:45 Ordered TROPONIN I Stat LAB 11/30/17 10:15 Completed URINALYSIS C & S IF INDICATED Stat LAB 11/30/17 10:06 Uncollected 0.9 % Sodium Chloride [Saline Flush] MEDS 11/30/17 10:06 Active 1 syr IVF PRN PRN Acetaminophen [Tylenol] MEDS 11/30/17 11:34 Ordered 1,000 mg PO Q4H PRN Aspirin [Aspirin EC] MEDS 12/01/17 08:00 Ordered 81 mg PO DAILYWM Azithromycin Inj [Zithromax] 500 mg MEDS 11/30/17 10:06 Active 0.9 % Sodium Chloride [Sodium Chloride] 250 ml IV ONCE Ceftriaxone Sodium [Rocephin] MEDS 11/30/17 10:12 Discontinued 1 gm .ROUTE .STK-MED ONE Ceftriaxone Sodium [Rocephin] 1 gm MEDS 11/30/17 10:04 Discontinued 0.9 % Sodium Chloride [Sodium Chloride] 50 ml IV ONCE Diltiazem HCl [Cardizem] MEDS 11/30/17 21:00 Ordered 60 mg PO Q12HR Furosemide [Lasix Tab] MEDS 12/01/17 09:00 Ordered 40 mg PO DAILY Insulin Regular, Human [Humulin R] MEDS 11/30/17 11:36 Stat See Protocol SUBCUT ONCE STA Ipratropium/Albuterol Neb [Duoneb] MEDS 11/30/17 10:05 Discontinued 1 vial NEB .STK-MED ONE Ipratropium/Albuterol Neb [Duoneb] MEDS 11/30/17 10:04 Discontinued 1 vial NEB ONCE STA Lorazepam [Ativan] MEDS 11/30/17 21:00 Ordered 0.5 mg PO BEDTIME Methylprednisolone Sod Succ/Pf [Solu-Medrol 125 mg] MEDS 11/30/17 10:04 Discontinued 125 mg IVP ONCE STA Methylprednisolone Sod Succ/Pf [Solu-Medrol 40 mg] MEDS 11/30/17 12:00 Ordered 60 mg IVP Q6HR Metoprolol Tartrate [Lopressor] MEDS 11/30/17 17:30 Ordered 100 mg PO BIDWM CHEST, 1V AP ONLY Stat RADS 11/30/17 10:34 Completed Medications Generic Name Dose Route Start Last Admin Trade Name Freq PRN Reason Stop Dose Admin Acetaminophen 1,000 mg 11/30/17 11:34 Tylenol PO Q4H PRN Fever >101 Aspirin 81 mg 12/01/17 08:00 Aspirin Ec PO DAILYWM NATALYA Diltiazem HCl 60 mg 11/30/17 21:00 Cardizem PO Q12HR NATALYA Furosemide 40 mg 12/01/17 09:00 Lasix Tab PO DAILY NATALYA Azithromycin 500 mg/ Sodium 250 mls @ 125 mls/hr 11/30/17 10:06 11/30/17 11: 14 Chloride IV 11/30/17 12:05 125 mls/hr ONCE STA Administration Lorazepam 0.5 mg 11/30/17 21:00 Ativan PO BEDTIME NATALYA Methylprednisolone Sodium Succinate 60 mg 11/30/17 12:00 Solu-Medrol 40 Mg IVP Q6HR NATALYA Non-Formulary Medication 100 mg 11/30/17 17:30 Metoprolol Tartrate [Lopressor] PO BIDWM NATALYA Sodium Chloride 1 syr 11/30/17 10:06 11/30/17 10:37 Saline Flush IVF 1 syr PRN PRN Administration To flush IV Discontinued Medications Generic Name Dose Route Start Last Admin Trade Name Freq PRN Reason Stop Dose Admin Albuterol/Ipratropium 1 vial 11/30/17 10:04 11/30/17 10:20 Duoneb NEB 11/30/17 10:05 1 vial ONCE STA Administration Ceftriaxone Sodium 1 gm/ 50 mls @ 75 mls/hr 11/30/17 10:04 11/30/17 10:32 Sodium Chloride IV 11/30/17 10:43 75 mls/hr ONCE STA Administration Insulin Human Regular 0 unit 11/30/17 11:36 Humulin R SUBCUT 11/30/17 11:37 ONCE STA Protocol Methylprednisolone Sodium Succinate 125 mg 11/30/17 10:04 11/30/17 10:31 Solu-Medrol 125 Mg IVP 11/30/17 10:05 125 mg ONCE STA Administration Vital Signs: Temp Pulse Resp BP Pulse Ox 11/30/17 11:31 95 11/30/17 10:53 95 11/30/17 09:58 98.1 F 96 H 28 H 141/84 H 68 L Departure - Departure Time of Disposition: 12:00 Disposition: ADMITTED INPATIENT Discharge Problem: Shortness of breath Instructions: Dyspnea (ED), Shortness of Breath (ED) Condition: Fair Pt referred to PMD for follow-up: Yes IPMP verified?: No Additional Instructions: Please call your Family Physician as soon as possible to schedule a follow-up appointment. Allergies/Adverse Reactions: Allergies atorvastatin [From Lipitor] Adverse Reaction (Unknown, Verified 11/30/17 10:17) ezetimibe [From Zetia] Adverse Reaction (Unknown, Verified 11/30/17 10:17) glimepiride Adverse Reaction (Unknown, Verified 11/30/17 10:17) rosuvastatin [From Crestor] Adverse Reaction (Unknown, Verified 11/30/17 10:17) Home Medications: Ambulatory Orders Aspirin [Aspirin EC] 81 mg PO DAILYWM 12/14/15 Omeprazole [Prilosec] 20 mg PO QDAC 12/14/15 Ferrous Gluconate 324 mg PO DAILY 09/11/17 Gabapentin 100 mg PO TID 09/11/17 Metoprolol Tartrate [Lopressor] 100 mg PO BIDWM #60 tablet 09/24/17 Mupirocin [Bactroban Ointment 1 Gram Applicator] 1 gm TP BID #1 appl 09/25/17 Furosemide [Lasix] 40 mg PO DAILY 10/12/17 Multivit-Min/FA/Lycopen/Lutein [Centrum Silver Tablet] 1 each PO DAILY 10/12/17 Levalbuterol HCl [Xopenex 1.25 mg] 1 vial NEB RTBID #60 vial.neb 10/19/17 Lorazepam 0.5 mg PO BEDTIME #30 tablet 10/19/17 Acetaminophen [Tylenol Extra Strength] 1,000 mg PO Q4H PRN 11/30/17 Diltiazem HCl [Cardizem] 60 mg PO Q12HR 11/30/17 Insulin Lispro [Humalog] See Protocol SQ AC 11/30/17 Disposition Discussed With: Patient, Family
[2017-11-30] MEDS ORDERED: DUONEB NEB STA (10:04)
[2017-11-30] MEDS ORDERED: ROCEPHIN 1 GM in SODIUM CHLORIDE 50 ML IV STA (10:04)
[2017-11-30] MEDS ORDERED: SOLU-MEDROL 125 MG IVP STA (10:04)
[2017-11-30] MEDS ORDERED: SODIUM CHLORIDE 1,000 ML IV STA (10:05)
[2017-11-30] MEDS ORDERED: DUONEB NEB ONE (10:05)
[2017-11-30] MEDS ORDERED: ZITHROMAX 500 MG in SODIUM CHLORIDE 250 ML IV STA (10:06)
[2017-11-30] MEDS ORDERED: ROCEPHIN ONE (10:12)
--- NOTE | 2017-11-30 10:59 | DI ---
EXAM: Chest one view, frontal view only. HISTORY: Shortness of breath. COMPARISON: 10/17/2017. FINDINGS: Heart is enlarged but atherosclerotic calcifications present. A small right pleural effus ion noted with right basilar consolidation which has worsened. There is consolidation in the lateral aspect of the left mid lung with focal linear opacity in the right perihilar region which are stable . No pneumothorax identified. No acute osseous abnormality is detected. IMPRESSION: Stable bilateral areas of consolidation with increased right pleural effusion.
[2017-11-30] MEDS ORDERED: TYLENOL PO PRN ×2 (11:34→11:42)
[2017-11-30] MEDS ORDERED: HUMULIN R SUBCUT STA (11:36)
[2017-11-30] MEDS: SOLU-MEDROL 125 MG IVP SCH ×2 (12:00→20:29)
[2017-11-30] MEDS ORDERED: LASIX IVP STA (12:02)
[2017-11-30 13:03] VITALS: BMI 25.5
[2017-11-30] MEDS: DEXTROSE 5%-1/2NS IV SOLUTION 1,000 ML IV SCH (13:30)
[2017-11-30] MEDS ORDERED: NON-FORMULARY MEDICATION (Metoprolol Tartrate [Lopressor] 100 MG) PO SCH (17:30)
[2017-11-30] MEDS: LOPRESSOR PO SCH (21:31)
[2017-11-30] MEDS: CARDIZEM PO SCH (21:32)
[2017-11-30] MEDS: ATIVAN PO SCH (21:32)
[2017-11-30] MEDS: HUMULIN R SUBCUT PRN (21:33)
[2017-12-01] MEDS: SOLU-MEDROL 125 MG IVP SCH ×5 (01:17→23:19)
[2017-12-01] MEDS: LASIX TAB PO SCH (05:46)
[2017-12-01] MEDS: ASPIRIN EC PO SCH (08:31)
[2017-12-01] MEDS: CARDIZEM PO SCH ×2 (08:31→20:25)
[2017-12-01] MEDS: LOPRESSOR PO SCH ×2 (08:31→17:30)
[2017-12-01] MEDS: ROCEPHIN 1 GM in SODIUM CHLORIDE 50 ML IV SCH (10:04)
[2017-12-01] MEDS: DEXTROSE 5%-1/2NS IV SOLUTION 1,000 ML IV SCH (10:10)
[2017-12-01] MEDS: HUMULIN R SUBCUT PRN ×3 (10:31→20:27)
[2017-12-01] MEDS: DUONEB NEB SCH ×3 (11:14→23:17)
[2017-12-01] MEDS: ZITHROMAX 500 MG in SODIUM CHLORIDE 250 ML IV SCH (11:43)
[2017-12-01] MEDS: ATIVAN PO SCH (20:25)
[2017-12-02] MEDS: LASIX TAB PO SCH (05:32)
[2017-12-02] MEDS: SOLU-MEDROL 125 MG IVP SCH ×4 (05:32→23:04)
[2017-12-02] MEDS: DUONEB NEB SCH ×4 (06:05→23:00)
[2017-12-02] MEDS: HUMULIN R SUBCUT PRN ×3 (06:35→17:32)
[2017-12-02] MEDS: ROCEPHIN 1 GM in SODIUM CHLORIDE 50 ML IV SCH (09:19)
[2017-12-02] MEDS: LOPRESSOR PO SCH ×2 (09:23→17:28)
[2017-12-02] MEDS: CARDIZEM PO SCH ×2 (09:23→20:02)
[2017-12-02] MEDS: ASPIRIN EC PO SCH (09:23)
[2017-12-02] MEDS: ZITHROMAX 500 MG in SODIUM CHLORIDE 250 ML IV SCH (10:33)
[2017-12-02] MEDS ORDERED: ATIVAN ONE (13:23)
[2017-12-02] MEDS: ATIVAN PO SCH ×2 (13:25→14:45)
[2017-12-02] MEDS: DEXTROSE 5%-1/2NS IV SOLUTION 1,000 ML IV SCH (18:05)
[2017-12-02] MEDS ORDERED: TORADOL IVP PRN (19:55)
[2017-12-02] MEDS: ATIVAN IVP SCH (20:02)
[2017-12-02] MEDS ORDERED: ATIVAN PO SCH (21:00)
[2017-12-03] MEDS ORDERED: LASIX ONE (03:40)
[2017-12-03] MEDS: DUONEB NEB SCH ×4 (04:45→23:25)
[2017-12-03] MEDS: ATIVAN IVP SCH ×4 (05:00→22:46)
[2017-12-03] MEDS: SOLU-MEDROL 125 MG IVP SCH ×3 (05:45→18:07)
[2017-12-03] MEDS ORDERED: LASIX IVP ONE ×2 (06:00)
[2017-12-03] MEDS: HUMULIN R SUBCUT PRN ×4 (06:32→23:45)
[2017-12-03] MEDS: TORADOL IVP SCH ×3 (08:41→21:26)
[2017-12-03] MEDS: ROCEPHIN 1 GM in SODIUM CHLORIDE 50 ML IV SCH (08:41)
[2017-12-03] MEDS: CARDIZEM PO SCH ×2 (08:43→21:26)
[2017-12-03] MEDS: ASPIRIN EC PO SCH (08:58)
[2017-12-03] MEDS: LOPRESSOR PO SCH ×2 (08:59→18:06)
[2017-12-03] MEDS: MORPHINE 2 MG/ML SYRINGE IVP PRN ×2 (11:36→18:03)
--- NOTE | 2017-12-03 13:14 | PCM.PROG ---
Attending Provider: ATTENDING PROVIDER: Dr. JIGNA CALIX DATE OF SERVICE: 12/03/17 SUBJECTIVE: This 82 year old WHITE/ F was hospitalized 11/30/17. The patient is hospitalized with acute respiratory failure. The patient's daughter is in the room and wants comfort measures. She doesn't want her mother to suffer. The patient and mother want DNR. REVIEW OF SYSTEMS: CONSTITUTIONAL: No night sweats. No fatigue, malaise, lethargy. No fever or chills. HEENT: Eyes: No visual changes. No eye pain. No eye discharge. ENT: No runny nose. No epistaxis. No sinus pain. No odynophagia. No congestion. RESPIRATORY: No cough, no congestion. No hemoptysis. No shortness of breath. CARDIOVASCULAR: No angina symptoms. No CHF symptoms. No atypical chest pain for CAD. No palpitations. No orthopnea.. GASTROINTESTINAL: No abdominal pain. No nausea or vomiting. No diarrhea or constipation. No hematemesis. No hematochezia. GENITOURINARY: No urgency. No frequency. No dysuria. No hematuria. No obstructive symptoms. No discharge. No pain. No significant abnormal bleeding. MUSCULOSKELETAL: No musculoskeletal pain; no joint swelling. NEUROLOGICAL: Drowsy, uncooperative and confused at times. No headache. No neck pain. No syncope. No seizures. No dizziness. PSYCHIATRIC: Not anxious. No depression. No suicidal thoughts. No homicidal thoughts. SKIN: No rash. No lesions. No wounds. ENDOCRINE: No unexplained weight loss. No weight gain. HEMATOLOGIC/LYMPHATIC: No anemia. No purpura. No petechiae. No prolonged or excessive bleeding. No palpable lymph nodes. PHYSICAL EXAMINATION: GENERAL: The patient moaning at times, restless, lying in bed but right now is on BIPAP and is doing well with it. VITAL SIGNS: Temperature 97.7 F, Pulse 100, Respiratory Rate 18, BP 152/99, Pulse Ox 91% HEENT: Head normocephalic, atraumatic. Eyes: Extraocular muscles are intact. Pupils are equal, round and reactive to light and accommodation. Ears: No lesions. Nose appeared normal. Throat: No exudate or erythema. NECK: Supple. No JVD, no carotid bruit. No lymphadenopathy or thyromegaly. LUNGS: Decreased breath sounds. Clear to auscultation. Percussion note normal. Chest symmetrical. HEART: S1, S2, no S3. No murmurs. No cyanosis or clubbing. No ascites. Pulses: Dorsalis pedis and posterior tibial pulses +1 to +2 both sides. ABDOMEN: Soft. Non-tender. Bowel sounds active. No CVA tenderness. No mass felt. EXTREMITIES: No edema. Full range of motion of all extremities, equal. NEUROLOGIC: No focal deficit. Cranial nerves II through XII are grossly intact. No headache, no double vision or headache. SKIN: Warm and dry. Intact. Turgor-normal. LYMPHATIC: No palpable lymph nodes/no lymphedema. MUSCULOSKELETAL: Normal joints with no swelling. Muscle tone is normal. LAB REVIEW: 12/02/17 06:55 12/03/17 05:15 12/03/17 05:15: Sodium 139, Potassium 4.2, Chloride 97 L, Carbon Dioxide 28, Anion Gap 18.2, BUN 61 H*, Creatinine 1.80 H, Estimated GFR (MDRD) 27.00, BUN/ Creatinine Ratio 33.88, Glucose 274 H D, Calcium 8.6, Total Bilirubin 0.4, AST 57 H D, ALT 88 H, Alkaline Phosphatase 58, Total Protein 6.1, Albumin 2.7 L, Globulin 3.4, Albumin/Globulin Ratio 0.79 12/03/17 04:00: Puncture Site Rr, O2 Saturation 81.0 L, ABG pH 7.255 L*, ABG pCO2 77.5 H, ABG pO2 55.0 L*, ABG HCO3 34.4 H, ABG Total CO2 37 H, ABG Base Excess 7 H, Matt Test +, O2 Delivery Device Nc, Oxygen Liter Flow 2.50, FiO2 % 32.0 12/02/17 06:55: Sodium 139, Potassium 4.1, Chloride 95 L, Carbon Dioxide 28, Anion Gap 20.1, BUN 54 H, Creatinine 1.93 H, Estimated GFR (MDRD) 25.00, BUN/ Creatinine Ratio 27.97, Glucose 187 H, Calcium 8.9, Total Bilirubin 0.4, AST 88 H D, ALT 105 H D, Alkaline Phosphatase 69, Total Protein 6.6, Albumin 2.9 L, Globulin 3.7, Albumin/Globulin Ratio 0.78, TSH 1.156 ASSESSMENT: Please see below. 1. Acute respiratory failure 2. Dementia 3. Acute respiratory acidosis partially compensated 4. Anemia 5. Chronic kidney disease with renal failure PLAN: 1. Give Morphine 2 hourly. 2. Ativan 0.5 mg t.i.d. for restlessness. 3. Continue antibiotics, steroids and nebs treatment. 4. The daughter is in the room and wants comfort measures . Plan and coordination of the patient's care discussed in the presence of Product Engineer and nurse. CONDITION: Critical PROGNOSIS: Poor SCRIBED BY: EDWIN EMERSON Section Gang Worker scribed while in presence of service performed by Dr. JIGNA CALIX on 12/03/17 ([id number])
[2017-12-03] MEDS: DEXTROSE 5%-1/2NS IV SOLUTION 1,000 ML IV SCH (14:32)
--- NOTE | 2017-12-03 14:56 | HP ---
DATE OF SERVICE: 11/30/17 REASON FOR HOSPITALIZATION: Acute respiratory failure. HISTORY OF PRESENT ILLNESS: 82-year-old white female was brought to the emergency room with acute respiratory failure. The patient had severe hypoxemia with c02 retention. pc02 was approximately 70 with pH of less than 7.3. The patient was in acute respiratory failure with acute partially compensated respiratory acidosis. The patient's breathing was shallow. The patient was put on BIPAP with improvement in blood gases. I examined the patient. The patient was drowsy, sleepy, unable to give any sensible history. [facility]. She has multiple medical problems, atrial fibrillation, diabetes mellitus, hypertension, dyslipidemia. Of note: The patient is DNR. PAST MEDICAL HISTORY: She has multiple medical problems, atrial fibrillation, diabetes mellitus, hypertension, dyslipidemia, congestive heart failure, diabetes mellitus, dementia. PAST SURGICAL HISTORY: History of cholecystectomy, hysterectomy REVIEW OF SYSTEMS: CONSTITUTIONAL: No night sweats. No fatigue, malaise, lethargy. No fever or chills. HEENT: Eyes: No visual changes. No eye pain. No eye discharge. ENT: No runny nose. No epistaxis. No sinus pain. No sore throat. No odynophagia. No ear pain. No congestion. RESPIRATORY: No cough, no congestion. No hemoptysis. No shortness of breath. CARDIOVASCULAR: No angina symptoms. No CHF symptoms. No atypical chest pain for CAD. No palpitations. No orthopnea. GASTROINTESTINAL: No abdominal pain. No nausea or vomiting. No diarrhea or constipation. No hematemesis. No hematochezia. GENITOURINARY: No urgency. No frequency. No dysuria. No hematuria. No obstructive symptoms. No discharge. No pain. No significant abnormal bleeding. MUSCULOSKELETAL: No musculoskeletal pain. No joint swelling. No arthritis. NEUROLOGICAL: No headache. No neck pain. No syncope. No seizures. No dizziness. PSYCHIATRIC: Not anxious. No depression. No suicidal thoughts. No homicidal thoughts. SKIN: No rash. No lesions. No wounds. ENDOCRINE: No unexplained weight loss. No weight gain. HEMATOLOGIC/LYMPHATIC: No anemia. No purpura. No petechiae. No prolonged or excessive bleeding. No palpable lymph nodes. PERSONAL/FAMILY/SOCIAL HISTORY: The patient is , [facility] in the [facility]. Former smoker. No alcohol abuse. Unable to do most activities of daily living. History of falls. MEDICATIONS: Aspirin 81 mg p.o. daily Prilosec 20 mg p.o. daily Ferrous Sulfate 325 mg p.o. daily Gabapentin 100 mg p.o. t.i.d. Metoprolol 100 mg b.i.d. Furosemide 40 mg p.o. daily Xopenex one vial b.i.d. Lorazepam 0.5 p.o. at bedtime Diltiazem 60 mg p.o. b.i.d. Humalog plus sliding scale ALLERGIES: ATORVASTATIN, EZETIMIBE, GLIMEPIRIDE, ROSUVASTATIN PHYSICAL EXAMINATION: GENERAL: The patient is unable to give any history. She is confused, sleepy on BIPAP. VITAL SIGNS: Temperature 97.4, pulse 94, respiratory rate 18, BP 140/84, pulse ox 99% on BIPAP, FI02 36% HEENT: Head normocephalic, atraumatic. Eyes: Extraocular muscles are intact. Pupils are equal, round and reactive to light and accommodation. Sclerae nonicteric. Ears: No lesions. Nose appeared normal. Throat: No exudate or erythema. NECK: Supple. No JVP, no carotid bruit. No lymphadenopathy or thyromegaly. LUNGS: Decreased breath sounds with mild wheeze bilaterally. Clear to auscultation. Percussion note normal. Chest symmetrical. HEART: S1, S2, no S3. Grade I/II systolic murmur. No cyanosis or clubbing. No ascites. Pulses: Dorsalis pedis and posterior tibial pulses +1 both sides. ABDOMEN: Protuberant. Soft. Nontender. Bowel sounds active. No CVA tenderness. No mass felt. EXTREMITIES: +1 pitting edema. Full range of motion of all extremities, equal. NEUROLOGIC: No focal deficit. Cranial nerves II through XII are grossly intact. No headache, no double vision or headache. SKIN: Not dry. Intact. Turgor - normal. LYMPHATIC: No palpable lymph nodes/no lymphedema. MUSCULOSKELETAL: Normal joints with no swelling. Muscle tone is normal. LABS: Hemoglobin 9.7, hematocrit 31, WBC 9,900, normal differentia. Creatinine 2.0. BUN 43, potassium 4, glucose 250, BNP 548, GFR 23 cc/min. Arterial blood gases on BIPAP reviewed. The patient has partially compensated acute respiratory acidosis with hypercarbia. ASSESSMENT: 1. ACUTE RESPIRATORY FAILURE 2. ACUTE BRONCHITIS 3. CHRONIC LUNG DISEASE 4. CONGESTIVE HEART FAILURE 5. ACUTE RENAL FAILURE 6. ANEMIA 7. CHF 8. DIABETES MELLITUS 9. HYPERTENSION PLAN: 1. Duonebs 2. Oxygen per cannula alternating with BIPAP depending upon the blood gases; maybe the nighttime she may need BIPAP. Will see how bad her c02 retention with nasal cannula. 3. Telemetry 4. Low IV fluids - watch for fluid overload 5. Continue Metoprolol sliding scale coverage with Accu-Cheks 6. Continue Lasix, Diltiazem 7. Continue Solu-Medrol 8. Rocephin and Zithromax to be continued 9. Daily CBC, CMP CONDITION: Critical. The patient is DNR. Addendum: 1. Keep the patient on the BIPAP today and tonight and in the morning depending up on her oxygen saturation. Will change her to 3 to 4L of oxygen/ cannula/min. Will do ABG in the morning. TIME SPENT: More than 70 minutes. MTDD
--- NOTE | 2017-12-03 15:43 | PN ---
DATE OF SERVICE: 12/01/17 SUBJECTIVE: 82 year old white female hospitalized with acute respiratory failure. The patient's atrial blood gasses on BIPAP this morning on 36% showed pO2 108 with pCO2 51,pH 7.46 with 98% saturation. The patient has been put on 4 liters with oxygen saturation approximately 93%. She is sitting up in the chair talking to me and says that she is feeling somewhat better. Poor appetite but she has been trying to eat. REVIEW OF SYSTEMS: CONSTITUTIONAL: No night sweats. No fatigue, malaise, lethargy. No fever or chills. HEENT: Eyes: No visual changes. No eye pain. No eye discharge. ENT: No runny nose. No epistaxis. No sinus pain. No sore throat. No odynophagia. No congestion. RESPIRATORY: Mild cough, no congestion. No hemoptysis. No shortness of breath. CARDIOVASCULAR: No angina symptoms. No CHF symptoms. No atypical chest pain for CAD. No palpitations. No orthopnea. GASTROINTESTINAL: No abdominal pain. No nausea or vomiting. No diarrhea or constipation. No hematemesis. No hematochezia. GENITOURINARY: No urgency. No frequency. No dysuria. No hematuria. No obstructive symptoms. No discharge. No pain. No significant abnormal bleeding. MUSCULOSKELETAL: No musculoskeletal pain; no joint swelling. NEUROLOGICAL: No headache. No neck pain. No syncope. No seizures. No dizziness. PSYCHIATRIC: Not anxious. No depression. No suicidal thoughts. No homicidal thoughts. SKIN: No rash. No lesions. No wounds. ENDOCRINE: No unexplained weight loss. No weight gain. HEMATOLOGIC/LYMPHATIC: No anemia. No purpura. No petechiae. No prolonged or excessive bleeding. No palpable lymph nodes. PHYSICAL EXAMINATION: GENERAL: The patient seems to be oriented to person and place. VITAL SIGNS: Temperature 97.4, pulse 97, respiratory rate 19, blood pressure 138/85 and pulse ox 92%. HEENT: Head normocephalic, atraumatic. Eyes: Extraocular muscles are intact. Pupils are equal, round and reactive to light and accommodation. Ears: No lesions. Nose appeared normal. Throat: No exudate or erythema. NECK: Supple. No JVD, no carotid bruit. No lymphadenopathy or thyromegaly. LUNGS: Decreased breath sounds but clear to auscultation. Percussion note normal. Chest symmetrical. HEART: S1, S2, no S3. No murmurs. No cyanosis or clubbing. No ascites. Pulses: Dorsalis pedis and posterior tibial pulses +1 to +2 both sides. ABDOMEN: Soft. Nontender. Bowel sounds active. No CVA tenderness. No mass felt. EXTREMITIES: Trace edema. Full range of motion of all extremities, equal. NEUROLOGIC: No focal deficit. Cranial nerves II through XII are grossly intact. No headache, no double vision or headache. SKIN: Not dry. Intact. Turgor - normal. LYMPHATIC: No palpable lymph nodes/no lymphedema. MUSCULOSKELETAL: Normal joints with no swelling. Muscle tone is normal. LABS: Hgb 9.3, hct 30, WBC 5,400 normal differential, creatinine 2, BUN 43, potassium 4 ASSESSMENT: 1. Acute respiratory failure on oxygen 4 liters. The patient will be monitored with the blood gasses. The blood gasses done on 4 liters showed pH in the acidotic range with increase pCO2 so patient may need BIPAP. 2. Acute renal failure, will watch her urine output with CMP PLAN: 1. Will decrease the 4 liters to 2-3 liters and monitor her blood gasses. 2. Case discussed with the respiratory therapist. 3. The patient doesn't have any symptoms of CHF, will watch her 4. Will continue PO Lasix 5. IV Hydration to be given slowly 6. Continue Rocephin and Zithromax and steroids CONDITION: STABLE BUT CRITICAL. The patient is DNR TIME SPENT: More than 30 minutes. Plan and coordination of the patient's care discussed in the presence of nurse. EB
[2017-12-03] MEDS ORDERED: ATIVAN ONE (22:44)
[2017-12-04] MEDS: SOLU-MEDROL 125 MG IVP SCH ×5 (00:50→23:08)
[2017-12-04] MEDS: MORPHINE 2 MG/ML SYRINGE IVP PRN ×5 (00:52→17:49)
[2017-12-04] MEDS: LASIX IVP SCH (05:40)
[2017-12-04] MEDS: TORADOL IVP SCH ×3 (05:40→21:07)
[2017-12-04] MEDS: HUMULIN R SUBCUT PRN ×2 (05:41→21:08)
[2017-12-04] MEDS: DUONEB NEB SCH ×3 (06:00→17:30)
[2017-12-04] MEDS ORDERED: ATIVAN ONE (06:15)
[2017-12-04] MEDS: ATIVAN IVP SCH (06:16)
[2017-12-04] MEDS ORDERED: ATIVAN IVP PRN (08:30)
[2017-12-04] MEDS ORDERED: MORPHINE 2 MG/ML SYRINGE IVP PRN (08:30)
[2017-12-04] MEDS: ROCEPHIN 1 GM in SODIUM CHLORIDE 50 ML IV SCH (09:08)
[2017-12-04] MEDS: LOPRESSOR PO SCH ×2 (09:09→17:46)
[2017-12-04] MEDS: CARDIZEM PO SCH ×2 (09:09→21:20)
[2017-12-04] MEDS: ASPIRIN EC PO SCH (09:09)
[2017-12-04] MEDS: DEXTROSE 5%-1/2NS IV SOLUTION 1,000 ML IV SCH (09:10)
--- NOTE | 2017-12-04 12:42 | PN ---
DATE OF SERVICE: 12/02/17 SUBJECTIVE: 82 year old white female hospitalized with acute respiratory failure. The patient's condition seemed to be improved but ABG's this morning showed pH 7.28 with pCO2 of 76 with pO2 113 with 97% saturation the patient was on 36% BIPAP. That had been reduced to 30%. The patient was put on 2 liters and she has saturation now of 92%. The patient is up in the chair oriented to person but confused but alert. She declined to wear BIPAP. Will go through breathing treatments which she had earlier declined. REVIEW OF SYSTEMS: CONSTITUTIONAL: No night sweats. No fatigue, malaise, lethargy. No fever or chills. HEENT: Eyes: No visual changes. No eye pain. No eye discharge. ENT: No runny nose. No epistaxis. No sinus pain. No sore throat. No odynophagia. No congestion. RESPIRATORY: No cough, no congestion. No hemoptysis. No shortness of breath. CARDIOVASCULAR: No angina symptoms. No CHF symptoms. No atypical chest pain for CAD. No palpitations. No orthopnea. GASTROINTESTINAL: No abdominal pain. No nausea or vomiting. No diarrhea or constipation. No hematemesis. No hematochezia. GENITOURINARY: No urgency. No frequency. No dysuria. No hematuria. No obstructive symptoms. No discharge. No pain. No significant abnormal bleeding. MUSCULOSKELETAL: No musculoskeletal pain; no joint swelling. NEUROLOGICAL: No headache. No neck pain. No syncope. No seizures. No dizziness. PSYCHIATRIC: Not anxious. No depression. No suicidal thoughts. No homicidal thoughts. SKIN: No rash. No lesions. No wounds. ENDOCRINE: No unexplained weight loss. No weight gain. HEMATOLOGIC/LYMPHATIC: No anemia. No purpura. No petechiae. No prolonged or excessive bleeding. No palpable lymph nodes. PHYSICAL EXAMINATION: VITAL SIGNS: Temperature 97.6, pulse 90, respiratory rate 20, blood pressure 150/86 and pulse ox 93% on 2 liters. HEENT: Head normocephalic, atraumatic. Eyes: Extraocular muscles are intact. Pupils are equal, round and reactive to light and accommodation. Ears: No lesions. Nose appeared normal. Throat: No exudate or erythema. NECK: Supple. No JVD, no carotid bruit. No lymphadenopathy or thyromegaly. LUNGS: Decreased breath sounds with few crepitations. Percussion note normal. Chest symmetrical. HEART: S1, S2, no S3. No murmurs. No cyanosis or clubbing. No ascites. Pulses: Dorsalis pedis and posterior tibial pulses +1 to +2 both sides. ABDOMEN: Soft. Nontender. Bowel sounds active. No CVA tenderness. No mass felt. EXTREMITIES: 1+ pitting edema. Full range of motion of all extremities, equal. NEUROLOGIC: No focal deficit. Cranial nerves II through XII are grossly intact. No headache, no double vision or headache. SKIN: Not dry. Intact. Turgor - normal. LYMPHATIC: No palpable lymph nodes/no lymphedema. MUSCULOSKELETAL: Normal joints with no swelling. Muscle tone is normal. ASSESSMENT: 1. Acute respiratory failure with acute bronchitis seems to be under control with chronic partial compensated respiratory acidosis. 2. CO2 retention 3. Acute renal failure seems to be improving with creatinine of 1.8 and BUN 45. PLAN: 1. The patient is on slow hydration. 2. Blood sugar is 230 and hgb 9.3 and both will be monitored. 3. The patient's family and patient herself they all want comfort measures, the patient is DNR. TIME SPENT: More than 30 minutes. Plan and coordination of the patient's care discussed in the presence of nurse. EB
--- NOTE | 2017-12-04 12:57 | PN ---
DATE OF SERVICE: 11/30/17 SUBJECTIVE: The patient was hospitalized today with acute respiratory failure. The patient had CO2 retention. The patient has been on BIPAP and her gasses have improved to the point where her pH is now 7.33 with oxygen saturation of 88%. We will increase the BIPAP FiO2 to 36% and the leave the patient alone until morning. The patient's saturation is to be kept between 88-95%. The patient has history of chronic respiratory failure, chronic kidney disease, chronic leg edema, atrial fibrillation, hypertension, dementia, Diabetes type 2, COPD, Dyslipidemia , history of repeated UTI. The patient is going to be treated with antibiotics, steroids, NEBS treatment, BIPAP for now. Condition is critical. The patient is DNR. The family is aware of the fact that the patient has multiple endstage problems. We will do daily CBC and CMP. ABG is in the morning. IV fluids 50cc D5 1/2 normal saline 50cc per hour. CONDITION: Stable. TIME SPENT: More than 30 minutes. Plan and coordination of the patient's care discussed in the presence of nurse. EB
--- NOTE | 2017-12-04 13:48 | PCM.PROG ---
Attending Provider: ATTENDING PROVIDER: Dr. JIGNA CALIX DATE OF SERVICE: 12/04/17 SUBJECTIVE: This 82 year old WHITE/ F was hospitalized 11/30/17 with respiratory failure. The patient's condition is not improving with BIPAP. There is no synchronized respirations with BIPAP. The daughter is in the room and according to her family, talked and do not want BIPAP. Will discontinue BIPAP. Blood gases this morning with pH 7.283, pCO2 79.1, pO2 57.0, HCO3 37.4, Total CO2 40, ABG Base Excess 11 H. Oxygen saturation 84%. Hc03 37 on 32% FI02 which is acute respiratory acidosis partially compensated. The patient is sleepy and confused. REVIEW OF SYSTEMS: CONSTITUTIONAL: No night sweats. No fatigue, malaise, lethargy. No fever or chills. HEENT: Eyes: No visual changes. No eye pain. No eye discharge. ENT: No runny nose. No epistaxis. No sinus pain. No odynophagia. No congestion. RESPIRATORY: No cough, no congestion. No hemoptysis. No shortness of breath. CARDIOVASCULAR: No angina symptoms. No CHF symptoms. No atypical chest pain for CAD. No palpitations. No orthopnea.. GASTROINTESTINAL: No abdominal pain. No nausea or vomiting. No diarrhea or constipation. No hematemesis. No hematochezia. GENITOURINARY: No urgency. No frequency. No dysuria. No hematuria. No obstructive symptoms. No discharge. No pain. No significant abnormal bleeding. MUSCULOSKELETAL: No musculoskeletal pain; no joint swelling. NEUROLOGICAL: The patient is unresponsive on BIPAP. No headache. No neck pain. No syncope. No seizures. No dizziness. PSYCHIATRIC: Not anxious. No depression. No suicidal thoughts. No homicidal thoughts. SKIN: No rash. No lesions. No wounds. ENDOCRINE: No unexplained weight loss. No weight gain. HEMATOLOGIC/LYMPHATIC: No anemia. No purpura. No petechiae. No prolonged or excessive bleeding. No palpable lymph nodes. PHYSICAL EXAMINATION: GENERAL: The patient is unresponsive, lying in bed on BIPAP in no distress. VITAL SIGNS: Temperature 97.1 F, Pulse 101, Respiratory Rate 22, BP 132/77, Pulse Ox 88% HEENT: Head normocephalic, atraumatic. Eyes: Extraocular muscles are intact. Pupils are equal, round and reactive to light and accommodation. Ears: No lesions. Nose appeared normal. Throat: No exudate or erythema. NECK: Supple. No JVD, no carotid bruit. No lymphadenopathy or thyromegaly. LUNGS: Decreased breath sounds. Clear to auscultation. Percussion note normal. Chest symmetrical. HEART: S1, S2, no S3. No murmurs. No cyanosis or clubbing. No ascites. Pulses: Dorsalis pedis and posterior tibial pulses +1 to +2 both sides. ABDOMEN: Soft. Non-tender. Bowel sounds active. No CVA tenderness. No mass felt. EXTREMITIES: +1 pitting edema. Full range of motion of all extremities, equal. NEUROLOGIC: No focal deficit. Cranial nerves II through XII are grossly intact. No headache, no double vision or headache. SKIN: Warm and dry. Intact. Turgor-normal. LYMPHATIC: No palpable lymph nodes/no lymphedema. MUSCULOSKELETAL: Normal joints with no swelling. Muscle tone is normal. LAB REVIEW: 12/03/17 05:15 12/03/17 05:15 12/04/17 03:30: Puncture Site Rr, O2 Saturation 84.0 L, ABG pH 7.283 L*, ABG pCO2 79.1 H, ABG pO2 57.0 L*, ABG HCO3 37.4 H, ABG Total CO2 40 H, ABG Base Excess 11 H, Matt Test +, O2 Delivery Device Bipap, FiO2 % 32.0 12/03/17 05:15: WBC 7.30, RBC 3.06 L, Hgb 9.8 L, Hct 31.8 L, MCV 103.9 H, MCH 32.0 H, MCHC 30.8 L, RDW Coeff of James 18.1 H, Plt Count 198, Neutrophils % ( Manual) 88.0 H, Lymphocytes % (Manual) 5.0 L, Monocytes % (Manual) 3.0, Reactive Lymphocytes 4.0, Anisocytosis Not present ASSESSMENT: Please see below. 1. Acute respiratory failure 2. Bronchitis with pneumonitis 3. History of CHF 4. Renal azotemia/kidney failure 5. Anemia 6. Dementia PLAN: 1. The family does not want BIPAP, will put on 2 to 3L of 02 2. Morphine q.8hr p.r.n. 3. Ativan q.8hr p.r.n. 4. D/C BIPAP 5. Will decrease Morphine Sulfate and Ativan dose frequency. The patient is DNR. Plan and coordination of the patient's care discussed in the presence of Riding Coach and nurse. CONDITION: CRITICAL PROGNOSIS: POOR SCRIBED BY: EDWIN EMERSON Cryptographer scribed while in presence of service performed by Dr. JIGNA CALIX on 12/04/17 ([id number])
[2017-12-05] MEDS: DUONEB NEB SCH ×3 (01:46→11:39)
[2017-12-05] MEDS: TORADOL IVP SCH ×2 (04:11→15:11)
[2017-12-05] MEDS: MORPHINE 2 MG/ML SYRINGE IVP PRN ×2 (04:13→15:45)
[2017-12-05] MEDS: LASIX IVP SCH (05:31)
[2017-12-05] MEDS: HUMULIN R SUBCUT PRN (05:31)
[2017-12-05] MEDS: SOLU-MEDROL 125 MG IVP SCH ×2 (05:31→14:24)
[2017-12-05] MEDS: DEXTROSE 5%-1/2NS IV SOLUTION 1,000 ML IV SCH (06:02)
[2017-12-05] MEDS ORDERED: ATIVAN ONE (06:04)
[2017-12-05] MEDS: ROCEPHIN 1 GM in SODIUM CHLORIDE 50 ML IV SCH (09:30)
[2017-12-05] MEDS: CARDIZEM PO SCH (09:31)
[2017-12-05] MEDS: ASPIRIN EC PO SCH (09:31)
[2017-12-05] MEDS: LOPRESSOR PO SCH ×2 (09:31→18:36)
[2017-12-05 10:10] VITALS: BP 117/68; TEMP 94.1
--- NOTE | 2017-12-05 14:44 | PCM.PROG ---
Attending Provider: ATTENDING PROVIDER: Dr. JIGNA CALIX DATE OF SERVICE: 12/05/17 SUBJECTIVE: This 82 year old WHITE/ F was hospitalized 11/30/17 with acute respiratory failure. The patient's condition has deteriorated. The family wants comfort measures. Brenda, the daughter is in the room. The patient is drowsy, sleepy and is unresponsive. Telemetry was taken off as she was restless. The patient is on Morphine every 2 hours. The patient's family does not want any labs to be drawn. REVIEW OF SYSTEMS: CONSTITUTIONAL: No night sweats. No fatigue, malaise, lethargy. No fever or chills. HEENT: Eyes: No visual changes. No eye pain. No eye discharge. ENT: No runny nose. No epistaxis. No sinus pain. No odynophagia. No congestion. RESPIRATORY: No cough, no congestion. No hemoptysis. No shortness of breath. CARDIOVASCULAR: No angina symptoms. No CHF symptoms. No atypical chest pain for CAD. No palpitations. No orthopnea.. GASTROINTESTINAL: No abdominal pain. No nausea or vomiting. No diarrhea or constipation. No hematemesis. No hematochezia. GENITOURINARY: No urgency. No frequency. No dysuria. No hematuria. No obstructive symptoms. No discharge. No pain. No significant abnormal bleeding. MUSCULOSKELETAL: No musculoskeletal pain; no joint swelling. NEUROLOGICAL: Awake, alert, oriented to time, place and person. No headache. No neck pain. No syncope. No seizures. No dizziness. PSYCHIATRIC: Not anxious. No depression. No suicidal thoughts. No homicidal thoughts. SKIN: No rash. No lesions. No wounds. ENDOCRINE: No unexplained weight loss. No weight gain. HEMATOLOGIC/LYMPHATIC: No anemia. No purpura. No petechiae. No prolonged or excessive bleeding. No palpable lymph nodes. PHYSICAL EXAMINATION: GENERAL: The patient is awake, alert and oriented, lying in bed in no distress. VITAL SIGNS: Temperature 97.6 F, Pulse 110, Respiratory Rate 24, BP 129/64, Pulse Ox 92% HEENT: Head normocephalic, atraumatic. Eyes: Extraocular muscles are intact. Pupils are equal, round and reactive to light and accommodation. Ears: No lesions. Nose appeared normal. Throat: No exudate or erythema. NECK: Supple. No JVD, no carotid bruit. No lymphadenopathy or thyromegaly. LUNGS: Clear to auscultation. Percussion note normal. Chest symmetrical. HEART: S1, S2, no S3. No murmurs. No cyanosis or clubbing. No ascites. Pulses: Dorsalis pedis and posterior tibial pulses +1 to +2 both sides. ABDOMEN: Soft. Non-tender. Bowel sounds active. No CVA tenderness. No mass felt. EXTREMITIES: No edema. Full range of motion of all extremities, equal. NEUROLOGIC: No focal deficit. Cranial nerves II through XII are grossly intact. No headache, no double vision or headache. SKIN: Warm and dry. Intact. Turgor-normal. LYMPHATIC: No palpable lymph nodes/no lymphedema. MUSCULOSKELETAL: Normal joints with no swelling. Muscle tone is normal. LAB REVIEW: 12/03/17 05:15 12/03/17 05:15 ASSESSMENT: Please see below. 1. Tachycardia irregular 2. Decreased breath sounds with shallow breaths 3. 1+ pitting edema 4. Unresponsive 5. Respiratory failure, acute on chronic 6. Atrial fib 7. CHF 8. Dementia 9. Kidney failure 10. Anemia 11. Diabetes mellitus PLAN: 1. Continue current treatment plan 2. Comfort measures only Plan and coordination of the patient's care discussed in the presence of Playground Official and nurse. CONDITION: Critical PROGNOSIS: Poor SCRIBED BY: EDWIN EMERSON Printed Circuit Designer scribed while in presence of service performed by Dr. JIGNA CALIX on 12/05/17 ([id number])
--- NOTE | 2017-12-05 16:33 | PCM.PROG ---
Time of : 16:25
--- NOTE | 2017-12-06 13:04 | DS ---
DATE OF SERVICE: 12/05/17 FINAL DIAGNOSIS: 1. Acute respiratory failure 2. Chronic lung disease 3. Chronic respiratory failure 4. Congestive heart failure 5. Dementia 6. Kidney failure 7. Anemia 8. Diabetes mellitus 9. Dyslipidemia 10.History of hypertension HOSPITAL COURSE: 82 year old white female was hospitalized with acute respiratory failure. The patient right from the beginning was treated with BIPAP was some improvement but then her condition stabilized at a level where she was unable to get off BIPAP. She refused to wear BIPAP and the family also declined BIPAP. She was put on later on nasal cannula and 100% nonrebreather. The patient has CO2 retention which worsened with treatment with Morphine sulfate and Ativan because of her restlessness. During of couple of days prior to her the patient's family also declined any lab tests. The patient on . CAUSE OF : Acute respiratory failure TIME SPENT: More than 60 minutes. MTDD
--- NOTE | 2017-12-06 13:06 | PN ---
11/30/17: Level 5 12/01/17: Extensive 12/02/17: Intermediate 12/03/17: Intermediate 12/04/17: Intermediate 12/05/17: Discharge MTDD
== END 2017-12-05 18:30 | disposition expired | DRG 189 ==
LOC: ED 09:58 → SCU 12:06
PROVIDERS: ADMIT Internal Medicine; ATTEND Internal Medicine
DX: J96.01 Acute respiratory failure with hypoxia (principal); E87.2 Acidosis; N17.9 Acute kidney failure, unspecified; J44.0 Chronic obstructive pulmonary disease with (acute) lower respiratory infection; F05 Delirium due to known physiological condition; F03.90 Unspecified dementia, unspecified severity, without behavioral disturbance, psychotic disturbance, mood disturbance, and anxiety; J20.9 Acute bronchitis, unspecified; I48.91 Unspecified atrial fibrillation; I10 Essential (primary) hypertension; R00.0 Tachycardia, unspecified; E11.9 Type 2 diabetes mellitus without complications; I50.9 Heart failure, unspecified; I12.9 Hypertensive chronic kidney disease with stage 1 through stage 4 chronic kidney disease, or unspecified chronic kidney disease; E11.22 Type 2 diabetes mellitus with diabetic chronic kidney disease; N18.9 Chronic kidney disease, unspecified; D64.9 Anemia, unspecified; E78.5 Hyperlipidemia, unspecified; Z79.4 Long term (current) use of insulin; Z79.899 Other long term (current) drug therapy; Z87.891 Personal history of nicotine dependence; Z87.440 Personal history of urinary (tract) infections
CPT/HCPCS: 36415; 80053; 81001; 82550; 82803; 82962; 83880; 84145; 84443; 84484; 85007; 85025; 87040; 87081; 87086; 87502; 93005; 93010; 94640; 94660; 96365; 96367; 96375; 99223; 99232; 99233; 99239; 99285